=== PATIENT | male | born 1940 | race Caucasian/White ===

== ENCOUNTER → 2017-08-06 08:04 | Outpatient (CLI) | payer MEDICARE, SELFPAY ==
[2017-08-06 08:10] LABS: Bacteria 0 SEEN /hpf (None Seen); Mucous, Urine 0 SEEN /hpf (<or=2+); Red Blood Cells-Urine 0 SEEN /hpf (0-5); Squamous Epithelial Cells - UA 0 SEEN /hpf (0-5)
[2017-08-06 08:28] LABS: Color, Urine Yellow (Yellow); Glucose, Dipstick Normal (Normal); Ketone-Dipstick 5 mg/dl (Negative); Leukocyte Esterase-Dipstick 25 /ul (Negative); Nitrite-Dipstick Negative (Negative); Occult Blood-Urine Negative /ul (Negative); Protein-Dipstick Negative (Negative); Urine Clarity Clear (Clear); Urine Urobilinogen 4 mg/dl (Normal)
[2017-08-06 08:32] LABS: Urine Bilirubin Dipstick 1 mg/dL (Negative)
[2017-08-06 08:36] LABS: Calcium Oxalate Crystals Ur 2+ /hpf (<or=2+); White Blood Cells 0-5 SEEN /hpf (0-5)
== END ==
PROVIDERS: Family Provider Family Medicine; PCP Family Medicine; Visit Provider Nurse Practitioner Adult Health
DX: R30.0 Dysuria (principal)
CPT/HCPCS: 81001; 87086; 87088

== ENCOUNTER → 2017-12-01 08:29 | Outpatient (CLI) | payer MEDICARE, SELFPAY | PROVIDERS: Family Provider Family Medicine; PCP Family Medicine; Visit Provider Family Medicine | DX: R06.00 Dyspnea, unspecified (principal) | CPT/HCPCS: 71046 ==

== ENCOUNTER → 2018-01-14 10:44 | Outpatient (CLI) | payer MEDICARE, SELFPAY | PROVIDERS: Family Provider Family Medicine; PCP Family Medicine; Referring Provider Nurse Practitioner Adult Health; Visit Provider Nurse Practitioner Adult Health | DX: R30.0 Dysuria (principal) | CPT/HCPCS: 87077; 87086; 87088; 87186 ==

== ENCOUNTER → 2018-06-04 09:24 | Outpatient (CLI) | payer MEDICARE, SELFPAY ==
[2018-05-21 10:41] VITALS: BMI 19.5
--- NOTE | 2018-06-04 09:27 | RAD_ITS ---
STUDY: SWALLOWING STUDY REASON FOR EXAM: Male, 77 years old. Dysphagia. TECHNIQUE: The examination was performed with Speech Pathology in attendance. Under fluoroscopic observation, the patient ingested thin barium, thick barium, barium pudding, and barium coated cracker. FLUOROSCOPY TIME: 6:27 minutes/seconds. [id number] spot images were obtained. RADIOLOGIST INVOLVEMENT: Radiologist was present and providing direct supervision. COMPARISON: None. FINDINGS: The following was observed during swallowing of the various mixtures of barium: Difficulty with initiation of the swallowing mechanism. Thin Barium: Silent aspiration with ingestion of thin liquids. Thick Barium: Intermittent penetration and silent aspiration with ingestion of nectar thickened liquids. Barium Pudding: There was no evidence of aspiration or laryngeal penetration. Barium Coated Cracker: There was no evidence of aspiration or laryngeal penetration. RAD/Swallowing Function w/Video IMPRESSION: Poor oral phase. Seventh aspiration with ingestion of thin liquids. Intermittent silent aspiration with ingestion of nectar thickened liquids. The swallow study findings were discussed with the patient by the speech pathologist at the conclusion of the examination. Please see speech pathology report for more information and recommendations. Electronically Signed: Corby Figueroa MD at 12:36 EST , Service support ,
--- NOTE | 2018-06-04 09:30 | SP.MBSS_ITS ---
PRIMARY / SECONDARY DIAGNOSIS: Dysphagia/Parkinson?s Disease REFERRING PHYSICIAN: Dr. Klein CURRENT DIET: Soft textures/Chopped Meat/Thin Liquids DENTITION: Upper Denture Plate/Lower Implant MENTAL STATUS: Slow response time d/t PD RESPIRATORY STATUS: Oxygenating on room air PREVIOUS MODIFIED BARIUM SWALLOW STUDY: n/a REASON FOR REFERRAL: Further assessment of swallow function under fluoroscopy. reports coughing when taking medications w/ thin liquids, especially when in a reclined position. Intermittent shortness of breath. MEDICAL HISTORY: Parkinson?s Disease, Anemia, Benign prostate hyperplasia, Chronic back pain, Dehydration, Depression, Diverticulitis, Dyspnea, FTT, Hypercholesterolemia, Lower GI bleed, SOB, Spinal cord stimulator, Urinary incontinence STUDY FINDINGS: Patient participated in a Modified Barium Swallow (MBS) study on 06/03/2018. Dr. Figueroa was the radiologist present for this evaluation. This study was recorded in the lateral view and images were sent to PACs for storage. The following consistencies were presented to this patient for analysis of oropharyngeal swallow function: honey thickened liquids and pudding. Results of the MBS are as follows: PENETRATION / ASPIRATION SCALE (CAPELLAN): 1 = does not enter airway 2 = enters airway/above vocal folds/ejected 3 = enters airway/above vocal folds/not ejected 4 = enters airway/contacts vocal folds/ejected 5 = enters airway/contacts vocal folds/not ejected 6 = enters airway/below vocal folds/ejected 7 = enters airway/below vocal folds/not ejected despite effort 8 = enters airway/below vocal folds/no effort PENETRATION / ASPIRATION SCALE (SCORE): 1. Thin liquid via teaspoon: 1 2. Thin liquid via cup (administered by [employer]URNED [employer]PRAISER large volume): 8 3. Thin liquid via straw: 1 4. Thin liquid via straw: 1 5. Puddin 6. Cookie: 1 7. Thin liquid via straw: 6 8. Thin liquid via straw: 8 9. Lillie thickened liquid via straw: 8 10. Lillie thickened liquid via straw: 1 11. Lillie thickened liquid via straw, attempted chin tuck unsuccessfully: 1 12. Lillie thickened liquid via straw w/ chin tuck: 1 IMPRESSION ORAL PHASE CHARACTERIZED BY: LABIAL SEAL: interlabial escape, no progression to anterior lip TONGUE CONTROL DURING BOLUS MANIPULATION: posterior escape of greater than half of bolus BOLUS PREPARATION / MASTICATION: slow prolonged chewing/mashing with complete recollection BOLUS TRANSPORT / LINGUAL MOTION: repetitive/disorganized tongue motion ORAL RESIDUE: residue collection on oral structures PHARYNGEAL PHASE CHARACTERIZED BY: INITIATION OF PHARYNGEAL SWALLOW: bolus head in pyriforms at first hyoid excursion SOFT PALATE ELEVATION: no bolus between soft palate and pharyngeal wall LARYNGEAL ELEVATION: partial superior movement of thyroid cartilage/partial approximation of arytenoids cartilage to epiglottic petiole ANTERIOR HYOID EXCURSION: partial anterior movement EPIGLOTTIC MOVEMENT: complete epiglottic inversion LARYNGEAL VESTIBULE CLOSURE AT HEIGHT OF SWALLOW: incomplete laryngeal vestibule closure with narrow column of air/contrast in laryngeal vestibule PHARYNGEAL STRIPPING WAVE: pharyngeal stripping wave present / diminished PHARYNGOESOPHAGEAL SEGMENT OPENING: partial distension and partial duration; partial obstruction of flow TONGUE BASE RETRACTION: trace column of contrast between tongue base and posterior pharyngeal wall PHARYNGEAL RESIDUE: collection of residue within or on pharyngeal structures ESOPHAGEAL PHASE CHARACTERIZED BY: ESOPHAGEAL BOLUS CLEARANCE IN THE UPRIGHT POSITION: esophageal retention EFFECTS OF TREATMENT STRATEGIES ATTEMPTED: * Chin tuck posture = not effective * Cued expectoration = not effective to expel laryngotracheal aspirate * Double swallow = effective to reduce oral/pharyngeal residue * Reduced liquid bolus volume = effective * Use of straw = effective to improve intake of liquids d/t UE weakness INTERPRETATION OF RESULTS: Patient presents with moderate to severe oropharyngeal dysphagia (R13.12) secondary to Parkinson?s Disease. Oral phase is primarily marked by moderate mastication inefficiency characterized by prolonged duration and munching pattern. Suboptimal lingual control noted w/ lingual pumping pattern utilized to propel bolus posteriorly. Oral residue retention remained post deglutition d/t impaired lingual strength/ROM swallow onset delay. Pharyngeal phase of swallow is marked by delayed triggering of the pharyngeal phase of swallow liquids pooling to the valleculae and occasionally the pyriform sinuses prior to swallow onset w/ reduced laryngeal vestibule closure, resulting in laryngeal vestibule penetration and SILENT ASPIRATION of both thin and nectar thickened liquids before and during the swallow. Limiting liquid bolus volume was effective to reduce the degree of premature pharyngeal bolus entry/penetration, but was not consistent. Increased aspiration noted w/ large volume/sequential swallows d/t inability to maintain airway closure between each swallow w/ penetration before swallow onset and aspiration between/after deglutition. Poor pharyngeal motility w/ residue retention diffusely spread throughout the pharynx (base of tongue, valleculae, aryepiglottic folds, pyriforms and posterior pharyngeal wall) attributed to reduced tongue based retraction, reduced posterior pharyngeal stripping wave action and slightly reduced pharyngoesophageal segment opening. Noted that ALL ASPIRATION WAS SILENT the patient was able to achieve what appeared to be a strong cough when cued, but it was ineffective to expel laryngotracheal aspirate. RECOMMENDATIONS DIET: soft textures/chopped meats/thin liquids COMPENSATORY STRATEGIES: Reduced bolus volume, slow rate of intake, liquids via cup or straw, double swallow as needed to clear oral/pharyngeal residue, seated upright at 90 degrees during PO intake, all medications taken w/ purees, avoid mixed consistencies (solids with liquids cereal, soup, etc.), encourage oral care to reduce aspiration of oral bacteria SPECIAL CONSIDERATIONS: Extensive time was spent in reviewing images and providing education re: dysphagia/Parkinson?s Disease/aspiration. Due to the progressive nature of Parkinson?s Disease, the patient and his expressed a strong desire to seek quality of life measures, rather than to make adjustments such as thickening liquids and use of feeding tubes, in an attempt to reduce aspiration risk at the cost of significantly reducing this patient?s quality of life. The patient is a known silent aspirator. The compensatory strategies recommended will not prevent/eliminate aspiration, but will hopefully reduce the frequency/severity of aspiration and its subsequent complications. Given the patient?s wishes, thin liquids are recommended rather than nectar thickened liquids as the degree/amount of aspiration was worse with single sips of nectar than w/ single sips of thin liquid via straw under fluoroscopy. There is also a known higher risk of pulmonary complications associated w/ aspiration of thicker vs. thinner liquids. Education provided to the patient and was well received w/ all questions answered to their satisfaction. SKILLED DYSPHAGIA INTERVENTION: This patient would benefit from follow up w/ home health speech therapy services for 1-2 visits to re-educate on the above information and ensure comprehension/consistent compliance w/ the aspiration precautions recommended to reduce the frequency/severity of aspiration and its subsequent complications. IMAGE COUNT: [id number]
== END ==
PROVIDERS: Family Provider Family Medicine; PCP Family Medicine; Referring Provider Internal Medicine Critical Care Medicine; Visit Provider Internal Medicine Critical Care Medicine
DX: G20 Parkinson's disease (principal)
CPT/HCPCS: 74230; 92610; 92611

== ENCOUNTER 2018-09-12 17:51 | Inpatient (IN) | payer MEDICARE, SELFPAY ==
[2018-05-21 10:41] VITALS: BMI 19.5
[2018-09-12] VITALS (13 sets, daily range): BP systolic 139–174; BP diastolic 62–140; PULSE 58–76; RESP 13–26; TEMP 36.7–37; O2SAT 92–100; BMI 19.4; BMI 18.3
--- NOTE | 2018-09-12 17:59 | CT_ITS ---
STUDY: CT ABDOMEN AND PELVIS WITHOUT CONTRAST REASON FOR EXAM: Male, 77 years old. Fall, right hip and back pain RADIATION DOSAGE (If Supplied By Facility): CTDIvol = ( 7.70 ) mGy, DLP = ( 373.42 ) mGycm TECHNIQUE: Transaxial images were obtained from the dome of the diaphragm to the symphysis pubis without oral contrast, and without intravenous contrast. Sagittal and coronal images were reconstructed. Limited by motion artifact and patient positioning. Individualized dose optimization techniques were used for this CT. COMPARISON: 03/06/2017 FINDINGS: Large anterior right pneumothorax identified with compression/atelectasis of the right lower lobe. Mild atelectasis of the left lower lobe. The visualized portions of the heart are within normal limits. Normal liver. Normal gallbladder and extrahepatic biliary system. Normal spleen. Normal pancreas. Normal bilateral adrenal glands. Small calcifications of the bilateral kidneys similar since the prior study. No demonstrated hydronephrosis. No renal masses are seen. There is a small hiatal hernia. Normal small intestine. There are multiple colonic diverticula consistent with diverticulosis. There is diffuse fecal retention throughout the colon. There is non-visualization of the appendix. There is diffuse atherosclerotic calcification of the abdominal aorta, without a demonstrated aneurysm. Normal inferior vena cava. Normal retroperitoneum. Normal urinary bladder. Normal abdominal wall. Multilevel degenerative changes of the thoracolumbar spine with multilevel laminectomies in the lower lumbar levels. Compression deformity of T12 and L1 are similar since the prior study. Similar compression deformity of T9 and T10 with prior vertebral augmentation of T11. Right hip replacement causes moderate spray artifact. No obvious pelvic ring fracture. There is a neurostimulator device noted. Left hip is normally aligned. CT/Abdomen/Pelvis without Cont IMPRESSION: 1. Large right pneumothorax partially visualized. 2. No abdominal ascites or pneumoperitoneum. 3. Moderate fecal retention. 4. Similar degenerative and operative changes of the lumbar spine. Lower thoracic and upper lumbar vertebral body compression fractures are similar since 2017. 5. Atherosclerosis. 6. Nonobstructing renal calculi. Electronically Signed: Flavio Jacome MD at 19:23 EDT , Service support ,
[2018-09-12] MEDS: Ketorolac 15 MG/ML Vial IV (18:08)
--- NOTE | 2018-09-12 18:24 | CT_ITS ---
STUDY: CT BRAIN WITHOUT CONTRAST REASON FOR EXAM: Male, 77 years old. Fall, back pain, history of Parkinson's disease RADIATION DOSAGE (If Supplied By Facility): CTDIvol = ( 40.11 ) mGy, DLP = ( 1750.38 ) mGycm TECHNIQUE: Transaxial CT imaging of the brain was performed without administration of intravenous contrast material. Individualized dose optimization techniques were used for this CT. COMPARISON: 07/07/2015 FINDINGS: Normal soft tissue structures. Normal calvarium. There is mild cerebral atrophy with widening of the extra-axial spaces and ventricular dilatation. Normal variant cavum septi pellucidi et vergae. There are areas of decreased attenuation within the white matter tracts of the supratentorial brain, consistent with microvascular disease changes. Low-density lesion of the left basal ganglia likely represents a prominent perivascular space rather than lacunar infarction. Normal brainstem. Normal cerebellum. There is no intracranial hemorrhage. There are no findings of an acute ischemic infarction. Normal visualized paranasal sinuses. CT/Brain/Head without Contrast IMPRESSION: 1. No acute intracranial hemorrhage or mass effect. 2. Central parenchymal volume loss. White matter changes that are nonspecific but most commonly associated with chronic small vessel ischemic disease. Electronically Signed: Flavio Jacome MD at 19:18 EDT , Service support ,
[2018-09-12 18:29] LABS: ALB/GLOB Ratio 1.2 RATIO (0.9-2.4); AST(SGOT) 18 U/L (15-37); Alanine Aminotransfer ALT/SGPT 9 U/L (16-61); Albumin, Serum 3.8 g/dL (3.2-5.0); Alkaline Phosphatase 68 U/L (45-117); Anion Gap 8 (5-15); BUN 22 mg/dL (7-18); BUN/Creat Ratio 22.9 RATIO (10-20); Calcium,Total 8.4 mg/dL (8.5-10.1); Chloride 100 mmol/L (98-107); Creatinine, Serum 0.96 mg/dL (0.70-1.30); EST Glomerular Filtration Rate 80 mL/min (>60); Est Glom Filt Rate - Afr Amer 97 mL/min (>60); Estimated Creatinine Clearance 52.77 ml/min; Globulin 3.2 g/dL (2.2-4.2); Glucose 98 mg/dL (74-106); Potassium 3.8 mmol/L (3.5-5.1); Sodium Level 138 mmol/L (136-145)
[2018-09-12 18:36] LABS: Absolute Lymphocyte Count 1.56 X10^3/ul (0.83-4.51); Absolute Neutrophil Count 8.7 X10^3/uL (2.0-7.7); Basophil# 0.02 X10^3/uL; Basophil% 0.2 % (0-1); Eosinophil# 0.17 X10^3/uL; Eosinophils% 1.5 % (0-5); Hematocrit 38.9 % (40-54); Hemoglobin 13.4 g/dl (13.0-16.5); Lymphocyte # 1.56 X10^3/ul (4.0); Lymphocyte % 13.7 % (19-41); Mean Corp Hgb Conc 34.4 g/gl (32-36); Mean Corpuscular Hgb 30.8 pg (27.0-32.0); Mean Corpuscular Volume 89.4 fL (80-94); Monocyte# 0.94 X10^3/uL; Monocyte% 8.2 % (0-10); Neutrophil # 8.71 X10^3/uL (2.7-7.7); Neutrophil % 76.2 % (47-70); Platelet Count 233 K/mm3 (150-450); RBC Distribution Width CV 13.2 % (11.6-14.6); RBC Distribution Width SD 42.7 fl (35.1-43.9); Red Blood Count 4.35 M/mm3 (4.6-6.2); White Blood Count 11.4 K/mm3 (4.4-11.0)
[2018-09-12 18:37] LABS: POSITIVE COUNT NO; POSITIVE DIFFERENTIAL NO; POSITIVE MORPHOLOGY NO
[2018-09-12 18:40] LABS: Bacteria 0 SEEN /hpf (None Seen)
--- NOTE | 2018-09-12 19:00 | RAD_ITS ---
STUDY: X-RAY CHEST REASON FOR EXAM: Male, 77 years old. Shortness of breath. Patient unable to hold still. TECHNIQUE: Single frontal view of the chest. COMPARISON: December 01, 2017 FINDINGS: There is stable hyperexpansion. There is no demonstrated pleural abnormality. There is moderate cardiomegaly unchanged. Normal mediastinum and ashanti. Normal visualized pulmonary arteries. There is atherosclerotic calcification of the aortic arch with tortuosity. There are vertebroplasty changes unaltered. Normal visualized ribs, clavicles, and shoulders. Incidentally noted is an epidural catheter and a stable hiatal hernia. RAD/Chest 1 View (Portable) IMPRESSION: Stable cardiomegaly, hyperexpansion and hiatal hernia. No acute finding. Electronically Signed: Gaudencio Hearn MD at 19:21 EDT , Service support ,
[2018-09-12 19:19] LABS: Color, Urine Yellow (Yellow); Glucose, Dipstick Normal (Normal); Ketone-Dipstick 5 mg/dl (Negative); Leukocyte Esterase-Dipstick 100 /ul (Negative); Nitrite-Dipstick Negative (Negative); Occult Blood-Urine 150 /ul (Negative); Protein-Dipstick 30 mg/dl (Negative); Urine Bilirubin Dipstick Negative (Negative); Urine Clarity Clear (Clear); Urine Urobilinogen Normal (Normal)
[2018-09-12 19:23] LABS: Red Blood Cells-Urine 10-25 SEEN /hpf (0-5); Squamous Epithelial Cells - UA 5-10 SEEN /hpf (0-5); White Blood Cells 10-25 SEEN /hpf (0-5)
[2018-09-12 19:24] LABS: Mucous, Urine RARE /hpf (<or=2+)
[2018-09-12 19:25] LABS: Amorphous Sediment 1+ URATE
[2018-09-12] MEDS: Propofol 200 MG/20 ML Vial 30 MG IV BOLUS (19:30)
--- NOTE | 2018-09-12 19:40 | RAD_ITS ---
STUDY: X-RAY CHEST REASON FOR EXAM: Male, 77 years old. Chest tube placement on the right for pneumothorax. TECHNIQUE: Single frontal view of the chest. COMPARISON: Earlier in the day FINDINGS: Right thoracostomy tube has been placed. There is a small apical pneumothorax 2.2 cm of separation of visceral and parietal pleura. There is increased atelectasis at both bases. There is no demonstrated pleural abnormality. There is stable cardiomegaly. Normal mediastinum and ashanti. Normal visualized pulmonary arteries. There is atherosclerotic calcification of the aortic arch with tortuosity. Normal visualized thoracic spine. Normal visualized ribs, clavicles, and shoulders. There is no demonstrated abnormality of the visualized soft tissue structures of the upper abdomen. RAD/Chest 1 View (Portable) IMPRESSION: Placement of right thoracostomy tube with decrease in right pneumothorax. Electronically Signed: Gaudencio Hearn MD at 19:54 EDT , Service support ,
--- NOTE | 2018-09-12 19:55 | HP.PCM_ITS ---
Problem List (1) Pneumothorax Status: Acute (2) Cystitis Status: Acute (3) Fall Status: Acute (4) Parkinson disease Status: Chronic (5) Benign prostate hyperplasia Status: Chronic Qualifiers: Lower urinary tract symptom presence: presence of symptoms unspecified History of Present Illness Date of Admission: 09/12/18 Chief Complaint: Fall The patient is a 77 year old M with a significant history of Parkinson's disease who presented because of a fall. History was taken from patient's since patient is less talkative. Her report that patient typically walks with a walker. However a day before presentation he fell while not using his walker. Also on the day of presentation patient's was having generalized body spasms and he fell out of bed. Reportedly patient was holding his chest indicating that he was having chest pain. Also his reported that patient has been having frequent urination and recently his started putting a condom catheter on patient. However his report that in the last 3 days she stopped putting the condom catheter. At the emergency department patient was found to have increased leukocyte esterase. Chest x-ray showed right pneumothorax and chest tube was placed at the emergency department. Emergency department doctor discussed the case with Dr. Gurrola, General Surgery who intends to follow patient. Past Medical History Past Medical History (Chronic Problems): Chronic Problems (Last Reviewed 09/12/18 @ 20:32 by Jluis Cason MD) SOB (shortness of breath) (Chronic) Benign prostate hyperplasia (Chronic) Parkinson disease (Chronic) Chronic back pain (Chronic) Urinary incontinence (Chronic) Depression (Chronic) Medical History: Medical History (Last Reviewed 09/12/18 @ 20:40 by Jluis Cason MD) SOB (shortness of breath) (Chronic) R06.02 Anemia due to blood loss, acute (Acute) D62 Dehydration (Acute) E86.0 Benign prostate hyperplasia (Chronic) Parkinson disease (Chronic) G20 Chronic back pain (Chronic) M54.9, G89.29 Urinary incontinence (Chronic) R32 Depression (Chronic) F32.9 FTT (failure to thrive) in adult (Acute) Lower GI bleed (Acute) K92.2 Diverticulitis large intestine (Acute) K57.32 Dyspnea R06.00 Hypercholesterolemia E78.00 Impacted cerumen of right ear H61.21 Spinal cord stimulator status Z96.89 Allergies albuterol [From Proventil HFA] Adverse Reaction (Mild, Verified 05/21/18 10:42) jittery meperidine [From Demerol] Adverse Reaction (Mild, Verified 05/21/18 10:42) Vomiting morphine Adverse Reaction (Verified 05/21/18 10:42) Other Narcotics Allergy (Uncoded 05/21/18 10:42) Other Halluciantes Home Medications: Ambulatory Orders Medication Instructions Recorded Pantoprazole Sodium [Protonix] 40 mg PO DAILY 07/11/13 Rasagiline Mesylate [Azilect] 1 mg PO DAILY 07/11/13 Tamsulosin HCl [Flomax] 0.4 mg PO DAILY 07/11/13 Venlafaxine XR [Effexor Xr] 75 mg PO DAILY 07/11/13 carbidopa 25 mg-levodopa 100 mg 1 tab PO TID tab 05/15/18 tablet ibuprofen 800 mg tablet 800 mg PO TID 05/15/18 Glycopyrrolate [Robinul] 1 mg PO TID 09/12/18 Multivitamin with Minerals 1 each PO DAILY 09/12/18 [Multiple Vitamin] Rivastigmine Tartrate 6 mg PO BID 09/12/18 [Rivastigmine] Ropinirole HCl [Requip] 1 mg PO TID 09/12/18 Surgical History: Surgical History (Last Reviewed 09/12/18 @ 20:40 by Jluis Cason MD) Cataract extraction status of left eye Z98.42 H/O elbow surgery Z98.890 Right H/O shoulder surgery Z98.890 1990 History of back surgery Z98.890 04/2009 History of hip surgery Z98.890 due to right sided fracture, 12/2009 Surgical History: - - Back surgery, elbow replacement bilaterally and rotator cuff repair. He has also had an ORIF of a hip fracture. He also has an electric stimulator in his back and he has had battery changes. Psychiatric History: Depression Lives: Spouse/ Significant Other Smoking Status: Former smoker - *Family History Maternal Family History: Family History (Last Reviewed 09/12/18 @ 20:40 by Jluis Cason MD) Mother Bacterial pneumonia Father Lung cancer History Items: No pertinent history Paternal Family History: Family History (Last Reviewed 09/12/18 @ 20:40 by Jluis Cason MD) Mother Bacterial pneumonia Father Lung cancer Review of Systems Constitutional: Denies: Chills, Fever, Weight Change HEENT: Denies: Head Aches, Sinus Congestion, Sinus Drainage Cardiovascular: Reports: Chest Pain. Denies: Palpitations Respiratory: Denies: Cough, Shortness of breath at rest, Sputum production Gastrointestinal: Denies: Abdominal Pain, Nausea, Vomiting Genitourinary: Denies: Dysuria Musculoskeletal: Denies: Joint Pain, Joint Tenderness Skin: Denies: Rash, Wounds Neurological: Denies: Numbness, Tingling, Focal weakness Psychiatric: Denies: Anxiety, Depression, Homicidal Ideations, Suicidal Idea tions Hematologic/ Lymphatic: Denies: Easy Bruising, Easy Bleeding VTE Information - Inpt Only VTE Present on Admission: No VTE Mechan Device Prophylaxis: None VTE Pharm Prophylaxis ordered?: Yes Patient Problems: Active and Suspected Problems (Last Reviewed 09/12/18 @ 20:32 by Jluis Cason MD) Pneumothorax (Acute) Cystitis (Acute) Fall (Acute) - Physical Exam General: Alert, Oriented x3, Cooperative, - HEENT: Atraumatic, PERRLA, EOMI, Normocephalic Neck: Supple, No JVD, Negative Carotid Bruits Lungs: Normal air movement, Diminished, - - Dressing on right side of chest with chest tube emanating from the right side chest. Cardiovascular: Regular rate, No murmurs Abdomen: Bowel Sounds Present, Soft, Non Tender Extremities: No edema, Capillary Refill Less than 3 Seconds Skin: No rashes, No breakdown Musculoskeletal: No Tenderness to Palpation of Joints or Extremities, Cachexia Neurological: Neuro grossly intact - Difficult to understand speech. Psych/Mental Status: Normal Affect, Appropriate Vital Signs Temp Pulse Resp BP Pulse Ox 98.6 F 71 18 166/91 H 100 09/12/18 17:52 09/12/18 19:52 09/12/18 19:52 09/12/18 19:52 09/12/18 19:52 Oxygen Flow Rate (L/min) [3] 15 Oxygen Flow Rate (L/min) [2] 15 Oxygen Flow Rate (L/min) [1 ( 15 Initial Baseline)] Oxygen Flow Rate (L/min) 15 Oxygen Delivery Method [3] Non-Rebreather Oxygen Delivery Method [2] Non-Rebreather Oxygen Delivery Method [1 ( Non-Rebreather Initial Baseline)] Oxygen Delivery Method Room Air Weight: 57.9 kg Body Mass Index (BMI) 19.4 Finger Stick Blood Glucose 81 Laboratory Tests Past 24 Hrs 09/12/18 09/12/18 09/12/18 18:05 18:05 18:30 WBC 11.4 H RBC 4.35 L Hgb 13.4 Hct 38.9 L MCV 89.4 MCH 30.8 MCHC 34.4 RDW 13.2 RDW Differential 42.7 Plt Count 233 MPV 9.0 Immature Gran % (Auto) 0.200 Neut % (Auto) 76.2 H Lymph % (Auto) 13.7 L [place] % (Auto) 8.2 Eos % (Auto) 1.5 Baso % (Auto) 0.2 Absolute Neuts (auto) 8.7 H Absolute Lymphs (auto) 1.56 Total Counted Not Reportable Sodium 138 Potassium 3.8 Chloride 100 Carbon Dioxide 30.0 Anion Gap 8 BUN 22 H Creatinine 0.96 Estim Creat Clear Calc 52.77 Est GFR (MDRD) Af Amer 97 Est GFR (MDRD) Non-Af 80 BUN/Creatinine Ratio 22.9 H Glucose 98 Calcium 8.4 L Total Bilirubin 0.80 AST 18 ALT 9 L Alkaline Phosphatase 68 Total Protein 7.0 Albumin 3.8 Globulin 3.2 Albumin/Globulin Ratio 1.2 Urine Color Yellow Urine Clarity Clear Urine pH 6.0 Ur Specific [place] 1.020 Urine Protein 30 H Urine Glucose (UA) Normal Urine Ketones 5 H Urine Occult Blood 150 H Urine Nitrite Negative Urine Bilirubin Negative Urine Urobilinogen Normal Ur Leukocyte Esterase 100 H Urine RBC 10-25 SEEN Urine WBC 10-25 SEEN Ur Squamous Epith Cells 5-10 SEEN Amorphous Sediment 1+ URATE Urine Bacteria 0 SEEN Urine Mucus RARE Assessment/Plan All Active Problems (Last Reviewed 09/12/18 @ 20:32 by Jluis Cason MD) Pneumothorax (Acute) Cystitis (Acute) Fall (Acute) Anemia due to blood loss, acute (Acute) Dehydration (Acute) FTT (failure to thrive) in adult (Acute) Lower GI bleed (Acute) Diverticulitis large intestine (Acute) The patient is a 77 year old M with a significant history of Parkinson's disease who presented because of a fall; and also complained of increased urination and found to have abnormal urinalysis and right-sided pneumothorax for which reason chest tube was placed. Right-sided pneumothorax Independent review of initial CXR confirms pneumothorax. Status post placement of right thoracostomy tube with decreasing right pneumothorax. Repeat chest x-ray in a.m. Oxygen per nasal cannula. General surgery consult. Pain control detailed below. Acute cystitis Review of ED labs shows neutrophilic leukocytosis Abnormal urinalysis. Follow urine culture Received ceftriaxone emergency department. Ceftriaxone continued. Trend CBC and BMP. Fall Likely due to Parkinson's disease. PT and OT to work with patient for strengthening and balance training. Home ibuprofen for chronic back pain continued. Protonix continued Add schedule Tylenol and PRN oxycodone. Parkinson disease Carbidopa levodopa continued Rasagiline continued Rivastigmine continued Requip continued Glycopyrrolate continued Protein Calorie Malnutrition BMI 19.4 Patient looks cachetic Ensure Enlive ordered Nutrition consult BPH Flomax continued DVT prophylaxis Subcutaneous Lovenox Code Visit Inpatient E&M: 06025 Init Hosp L3
[2018-09-12] MEDS: Ceftriaxone 1 GM/50 ML BAG IV (20:00)
--- NOTE | 2018-09-12 20:21 | ED.VISSUMM ---
- ER Visit Summary Date of Service: 09/12/18 Chief Complaint: [Fall, back pain History of Present Illness: The patient is a 77 M with history of advanced Parkinson's disease presents to the emergency department 1 day after a fall. Patient was alone in his home. His states that she was out running errands and her shredding machine knife changer was not home from work yet. He was found about 20 feet from his bed without his walker. He apparently fallen. He did not lose consciousness. He actually did well overnight. This morning, he was walking with his walker and eat breakfast without issue. As the day went on, he began to complain of a lot of pain in his right ribs and some shortness of breath. Squad was called. On arrival, the patient does not give much history because of his advanced Parkinson's. Physical Examination: Afebrile. Uncomfortable male was in no acute distress. Patient was all extremities. His neuro exam is nonfocal. Head is normocephalic, atraumatic. Pupils equal round reactive. Neck is supple. Heart is regular rate and rhythm. Lungs are diminished on the right. There is tenderness across the right chest. Abdomen is soft without tenderness. No pain over the hips. No pain in the knees or ankles. Test Results: [] Emergency Department Course and Treatment: Based on the patient's exam, metabolic work-up was pursued. The is also concerned he may have a urinary tract infection as they been using condom catheters and he is been having increasing urinary frequency. Patient was straight cath and there is no evidence of retention. His urine does show evidence of infection. CT of the head was obtained which was unremarkable. Chest x-ray does show pneumothorax. CT of abdomen and pelvis shows no intra-abdominal injury, but there is pneumothorax visible. The patient has significant trouble with narcotics. He was consented for conscious sedation. A Pneumovax catheter was placed without issue. Repeat x-rays do show it in good position with expansion of the long. I did discuss the patient with Dr. Galvanbody he was comfortable following the patient was hospitalized. The patient will be admitted to the hospitalist. Treatment Plan: [] Disposition: Admission Impression: 1. Right pneumothorax 2. Urinary tract infection 3. Right chest Pneumovax catheter placement 4. Conscious sedation This note was generated with [employer] software. It may contain incorrect words, spelling, and punctuation that were not noted in review of the chart prior to signing
--- NOTE | 2018-09-12 20:25 | ED.DCSUM_ITS ---
- ER Visit Summary Date of Service: 09/12/18 Chief Complaint: [Fall, back pain History of Present Illness: The patient is a 77 M with history of advanced Parkinson's disease presents to the emergency department 1 day after a fall. Patient was alone in his home. His states that she was out running errands and her lube attendant was not home from work yet. He was found about 20 feet from his bed without his walker. He apparently fallen. He did not lose consciousness. He actually did well overnight. This morning, he was walking with his walker and eat breakfast without issue. As the day went on, he began to complain of a lot of pain in his right ribs and some shortness of breath. Squad was called. On arrival, the patient does not give much history because of his advanced Parkinson's. Physical Examination: Afebrile. Uncomfortable male was in no acute distress. Patient was all extremities. His neuro exam is nonfocal. Head is normocephalic, atraumatic. Pupils equal round reactive. Neck is supple. Heart is regular rate and rhythm. Lungs are diminished on the right. There is tenderness across the right chest. Abdomen is soft without tenderness. No pain over the hips. No pain in the knees or ankles. Test Results: [] Emergency Department Course and Treatment: Based on the patient's exam, metabolic work-up was pursued. The is also concerned he may have a urinary tract infection as they been using condom catheters and he is been having increasing urinary frequency. Patient was straight cath and there is no evidence of retention. His urine does show evidence of infection. CT of the head was obtained which was unremarkable. Chest x-ray does show pneumothorax. CT of abdomen and pelvis shows no intra-abdominal injury, but there is pneumothorax visible. The patient has significant trouble with narcotics. He was consented for conscious sedation. A Pneumovax catheter was placed without issue. Repeat x-rays do show it in good position with expansion of the long. I did discuss the patient with Dr. Galvanbody he was comfortable following the patient was hospitalized. The patient will be admitted to the hospitalist. Treatment Plan: [] Disposition: Admission Impression: 1. Right pneumothorax 2. Urinary tract infection 3. Right chest Pneumovax catheter placement 4. Conscious sedation This note was generated with [employer] software. It may contain incorrect words, spelling, and punctuation that were not noted in review of the chart prior to signing
[2018-09-12] MEDS: Ibuprofen 400 MG Tablet 800 MG PO (21:45)
[2018-09-12] MEDS: Acetaminophen 500 MG Tablet PO (23:20)
[2018-09-13 03:00] VITALS: BP 134/98; PULSE 63; RESP 17; TEMP 36.5; O2SAT 97
[2018-09-13 03:18] VITALS: O2SAT 97
--- NOTE | 2018-09-13 05:50 | RAD_ITS ---
STUDY: X-RAY CHEST REASON FOR EXAM: Male, 77 years old. Follow-up right-sided pneumothorax TECHNIQUE: Portable chest COMPARISON: 09/12/2018 FINDINGS: There is a small less than 1 cm residual right-sided pneumothorax which is smaller in size when compared to prior exam. The right-sided chest tube is unchanged.. There are stimulator wires are again noted overlying the mid thoracic spine. . There is no demonstrated pleural abnormality. Normal size heart. Normal mediastinum and ashanti. Normal visualized pulmonary arteries. Normal visualized aortic arch and descending thoracic aorta. There is improving bibasilar subsegmental atelectasis The prior compression fractures of the thoracic spine with prior kyphoplasty is again noted and unchanged There is no demonstrated abnormality of the visualized soft tissue structures of the upper abdomen. RAD/Chest 1 View (Portable) IMPRESSION: small less than 1 cm residual right-sided pneumothorax which is smaller in size when compared to prior exam Stable right-sided chest tube Stimulator wires overlying the mid thoracic spine Prior compression fractures thoracic spine with prior kyphoplasty in thoracic dextroscoliosis unchanged Improved aeration with improving bibasilar subsegmental atelectasis Electronically Signed: Juan Pablo Mendoza, at 7:25 EDT Tel , Service support ,
[2018-09-13] MEDS: Acetaminophen 500 MG Tablet PO ×3 (06:09→23:55)
[2018-09-13 07:45] LABS: Absolute Lymphocyte Count 1.86 X10^3/ul (0.83-4.51); Absolute Neutrophil Count 4.9 X10^3/uL (2.0-7.7); Basophil# 0.04 X10^3/uL; Basophil% 0.5 % (0-1); Eosinophil# 0.33 X10^3/uL; Eosinophils% 4.2 % (0-5); Hematocrit 35.3 % (40-54); Hemoglobin 12.1 g/dl (13.0-16.5); Lymphocyte # 1.86 X10^3/ul (4.0); Lymphocyte % 23.8 % (19-41); Mean Corp Hgb Conc 34.3 g/gl (32-36); Mean Corpuscular Hgb 30.6 pg (27.0-32.0); Mean Corpuscular Volume 89.1 fL (80-94); Mean Platelet Vol. 9.1 fl (6.2-12.0); Monocyte# 0.63 X10^3/uL; Monocyte% 8.1 % (0-10); Neutrophil # 4.92 X10^3/uL (2.7-7.7); Neutrophil % 63.1 % (47-70); Platelet Count 213 K/mm3 (150-450); RBC Distribution Width SD 41.8 fl (35.1-43.9); Red Blood Count 3.96 M/mm3 (4.6-6.2); White Blood Count 7.8 K/mm3 (4.4-11.0)
[2018-09-13 07:49] LABS: POSITIVE COUNT NO; POSITIVE DIFFERENTIAL NO; POSITIVE MORPHOLOGY NO
[2018-09-13 07:52] LABS: Anion Gap 9 (5-15); BUN 23 mg/dL (7-18); BUN/Creat Ratio 28.8 RATIO (10-20); Chloride 105 mmol/L (98-107); EST Glomerular Filtration Rate 99 mL/min (>60); Est Glom Filt Rate - Afr Amer 120 mL/min (>60); Estimated Creatinine Clearance 59.72 ml/min; Glucose 79 mg/dL (74-106); Potassium 3.6 mmol/L (3.5-5.1); Sodium Level 142 mmol/L (136-145)
[2018-09-13 08:22] VITALS: O2SAT 96
[2018-09-13] MEDS: Venlafaxine XR 75 MG Capsule PO (08:45)
[2018-09-13] MEDS: Carbidopa/Levodopa 25/100 Tablet PO ×2 (08:46→15:59)
[2018-09-13] MEDS: Multivitamins,Therapeutic Tablet 1 TABLET PO (08:46)
[2018-09-13] MEDS: Pramipexole Di-HCl 0.5 MG Tablet PO ×2 (08:46→15:59)
[2018-09-13] MEDS: Enoxaparin 40 MG/0.4 ML Syringe SC (08:46)
[2018-09-13] MEDS: Glycopyrrolate 1 MG TABLET PO ×2 (08:46→15:59)
[2018-09-13] MEDS: Rivastigmine Tartrate 1.5 MG Capsule 3 MG PO ×2 (08:51→16:00)
[2018-09-13 09:00] VITALS: BP 130/75; PULSE 68; RESP 15; TEMP 36.2; O2SAT 94
--- NOTE | 2018-09-13 11:18 | PCM.CONS.GEN ---
Problem List (1) Pneumothorax Status: Acute Qualifiers: Pneumothorax type: spontaneous, primary Qualified Code(s): J93.11 - Primary spontaneous pneumothorax Reason for Consult Date of Consultation: 09/13/18 History of Present Illness: The patient is a 77 year old M with history of advanced Parkinson's disease presents to the emergency department 1 day after a fall. Patient was alone in his home. His states that she was out running errands and her general car yard supervisor was not home from work yet. He was found about 20 feet from his bed without his walker. He apparently fallen. He did not lose consciousness. He actually did well overnight. This morning, he was walking with his walker and eat breakfast without issue. As the day went on, he began to complain of a lot of pain in his right ribs and some shortness of breath. Squad was called. On arrival, the patient does not give much history because of his advanced Parkinson's. Pleurx chest tube was placed by the emergency room physician. Reviewing of the film today shows the lung to be completely expanded. Past Medical History Past Medical History (Chronic Problems): Chronic Problems (Last Reviewed 09/12/18 @ 20:40 by Jluis Cason MD) SOB (shortness of breath) (Chronic) Benign prostate hyperplasia (Chronic) Parkinson disease (Chronic) Chronic back pain (Chronic) Urinary incontinence (Chronic) Depression (Chronic) Medical History: Medical History (Last Reviewed 09/13/18 @ 11:19 by Sharif Gurrola MD) SOB (shortness of breath) (Chronic) R06.02 Anemia due to blood loss, acute (Acute) D62 Dehydration (Acute) E86.0 Benign prostate hyperplasia (Chronic) Parkinson disease (Chronic) G20 Chronic back pain (Chronic) M54.9, G89.29 Urinary incontinence (Chronic) R32 Depression (Chronic) F32.9 FTT (failure to thrive) in adult (Acute) Lower GI bleed (Acute) K92.2 Diverticulitis large intestine (Acute) K57.32 Dyspnea R06.00 Hypercholesterolemia E78.00 Impacted cerumen of right ear H61.21 Spinal cord stimulator status Z96.89 Allergies albuterol [From Proventil HFA] Adverse Reaction (Mild, Verified 05/21/18 10:42) jittery meperidine [From Demerol] Adverse Reaction (Mild, Verified 05/21/18 10:42) Vomiting morphine Adverse Reaction (Verified 05/21/18 10:42) Other Narcotics Allergy (Uncoded 05/21/18 10:42) Other Halluciantes Home Medications: Ambulatory Orders Medication Instructions Recorded Pantoprazole Sodium [Protonix] 40 mg PO 0600 07/11/13 Rasagiline Mesylate [Azilect] 1 mg PO DAILY 07/11/13 Venlafaxine XR [Effexor Xr] 75 mg PO DAILY 07/11/13 carbidopa 25 mg-levodopa 100 mg 1 tab PO TIDCM tab 05/15/18 tablet ibuprofen 800 mg tablet 800 mg PO TID PRN PRN 05/15/18 Glycopyrrolate [Robinul] 1 mg PO TIDCM 09/12/18 Multivitamin with Minerals 1 each PO DAILY 09/12/18 [Multiple Vitamin] Rivastigmine Tartrate 6 mg PO BIDCM 09/12/18 [Rivastigmine] Ropinirole HCl [Requip] 1 mg PO TIDCM 09/12/18 Surgical History: Surgical History (Last Reviewed 09/13/18 @ 11:19 by Sharif Gurrola MD) Cataract extraction status of left eye Z98.42 H/O elbow surgery Z98.890 Right H/O shoulder surgery Z98.890 1990 History of back surgery Z98.890 04/2009 History of hip surgery Z98.890 due to right sided fracture, 12/2009 Surgical History: - - Back surgery, elbow replacement bilaterally and rotator cuff repair. He has also had an ORIF of a hip fracture. He also has an electric stimulator in his back and he has had battery changes. Psychiatric History: Depression Lives: Spouse/ Significant Other Smoking Status: Never smoker - *Family History Maternal Family History: Family History (Last Reviewed 09/12/18 @ 20:40 by Jluis Cason MD) Mother Bacterial pneumonia Father Lung cancer History Items: No pertinent history Paternal Family History: Family History (Last Reviewed 09/12/18 @ 20:40 by Jluis Cason MD) Mother Bacterial pneumonia Father Lung cancer History Items: No pertinent history Patient Problems: Active and Suspected Problems (Last Reviewed 09/12/18 @ 20:40 by Jluis Cason MD) Pneumothorax (Acute) Cystitis (Acute) Fall (Acute) - Physical Exam Lungs: Clear to auscultation, Diminished - No air leak is identified. Vital Signs Temp Pulse Resp BP Pulse Ox 97.1 F L 68 15 130/75 H 94 09/13/18 09:00 09/13/18 09:00 09/13/18 09:00 09/13/18 09:00 09/13/18 09:00 Oxygen Flow Rate (L/min) [3] 15 Oxygen Flow Rate (L/min) [2] 15 Oxygen Flow Rate (L/min) [1 ( 15 Initial Baseline)] Oxygen Flow Rate (L/min) 15 Oxygen Delivery Method [3] Non-Rebreather Oxygen Delivery Method [2] Non-Rebreather Oxygen Delivery Method [1 ( Non-Rebreather Initial Baseline)] Oxygen Delivery Method Room Air Weight: 120 lb 5.958 oz Body Mass Index (BMI) 18.3 Finger Stick Blood Glucose 81 Intake and Output for Last 24 Hours 09/11/18 09/12/18 09/13/18 23:59 23:59 23:59 Intake Total 200 / 200 Output Total 5 / 5 Balance 195 / 195 Microbiology Past 72 Hours 09/12/18 18:30 Urine Culture - Preliminary Urine, Catheterized Gram Positive Cocci Laboratory Tests Past 24 Hrs 09/12/18 09/12/18 09/12/18 18:05 18:05 18:30 WBC 11.4 H RBC 4.35 L Hgb 13.4 Hct 38.9 L MCV 89.4 MCH 30.8 MCHC 34.4 RDW 13.2 RDW Differential 42.7 Plt Count 233 MPV 9.0 Immature Gran % (Auto) 0.200 Neut % (Auto) 76.2 H Lymph % (Auto) 13.7 L Isabella % (Auto) 8.2 Eos % (Auto) 1.5 Baso % (Auto) 0.2 Absolute Neuts (auto) 8.7 H Absolute Lymphs (auto) 1.56 Total Counted Not Reportable Sodium 138 Potassium 3.8 Chloride 100 Carbon Dioxide 30.0 Anion Gap 8 BUN 22 H Creatinine 0.96 Estim Creat Clear Calc 52.77 Est GFR (MDRD) Af Amer 97 Est GFR (MDRD) Non-Af 80 BUN/Creatinine Ratio 22.9 H Glucose 98 Calcium 8.4 L Total Bilirubin 0.80 AST 18 ALT 9 L Alkaline Phosphatase 68 Total Protein 7.0 Albumin 3.8 Globulin 3.2 Albumin/Globulin Ratio 1.2 Urine Color Yellow Urine Clarity Clear Urine pH 6.0 Ur Specific [place] 1.020 Urine Protein 30 H Urine Glucose (UA) Normal Urine Ketones 5 H Urine Occult Blood 150 H Urine Nitrite Negative Urine Bilirubin Negative Urine Urobilinogen Normal Ur Leukocyte Esterase 100 H Urine RBC 10-25 SEEN Urine WBC 10-25 SEEN Ur Squamous Epith Cells 5-10 SEEN Amorphous Sediment 1+ URATE Urine Bacteria 0 SEEN Urine Mucus RARE 09/13/18 09/13/18 06:38 06:38 WBC 7.8 RBC 3.96 L Hgb 12.1 L Hct 35.3 L MCV 89.1 MCH 30.6 MCHC 34.3 RDW 13.0 RDW Differential 41.8 Plt Count 213 MPV 9.1 Immature Gran % (Auto) 0.300 Neut % (Auto) 63.1 Lymph % (Auto) 23.8 Isabella % (Auto) 8.1 Eos % (Auto) 4.2 Baso % (Auto) 0.5 Absolute Neuts (auto) 4.9 Absolute Lymphs (auto) 1.86 Total Counted Not Reportable Sodium 142 Potassium 3.6 Chloride 105 Carbon Dioxide 28.0 Anion Gap 9 BUN 23 H Creatinine 0.80 Estim Creat Clear Calc 59.72 Est GFR (MDRD) Af Amer 120 Est GFR (MDRD) Non-Af 99 BUN/Creatinine Ratio 28.8 H Glucose 79 Calcium 8.0 L Total Bilirubin AST ALT Alkaline Phosphatase Total Protein Albumin Globulin Albumin/Globulin Ratio Urine Color Urine Clarity Urine pH Ur Specific [place] Urine Protein Urine Glucose (UA) Urine Ketones Urine Occult Blood Urine Nitrite Urine Bilirubin Urine Urobilinogen Ur Leukocyte Esterase Urine RBC Urine WBC Ur Squamous Epith Cells Amorphous Sediment Urine Bacteria Urine Mucus Assessment/Plan All Active Problems (Last Reviewed 09/12/18 @ 20:40 by Jluis Cason MD) Pneumothorax (Acute) Cystitis (Acute) Fall (Acute) Anemia due to blood loss, acute (Acute) Dehydration (Acute) FTT (failure to thrive) in adult (Acute) Lower GI bleed (Acute) Diverticulitis large intestine (Acute) We will leave the chest tube to suction today. We will give a trial of removing the suction tomorrow morning and repeat a chest x-ray around noon.
--- NOTE | 2018-09-13 13:12 | PCM.PN.HOSP ---
Patient Problems: Active and Suspected Problems (Last Reviewed 09/13/18 @ 11:19 by Sharif Gurrola MD) Pneumothorax (Acute) Cystitis (Acute) Fall (Acute) Subjective: Patient has end-stage Parkinson disease and has severe kyphosis and cervical torticollis with her neck bent on left side. Patient is crawling position and sleeping. Talked to the patient and other family members near the bedside. Patient did not sleep last night. After waking up, he complained of mild pain. Patient had mechanical fall on 09/11 and 09/12 before admission. Patient has very limited ADL and restricted movement secondary to Parkinson's disease Vitals/I&O's: Vital Signs Temp Pulse Resp BP Pulse Ox 97.1 F L 68 15 130/75 H 94 09/13/18 09:00 09/13/18 09:00 09/13/18 09:00 09/13/18 09:00 09/13/18 09:00 Oxygen Flow Rate (L/min) [3] 15 Oxygen Flow Rate (L/min) [2] 15 Oxygen Flow Rate (L/min) [1 ( 15 Initial Baseline)] Oxygen Flow Rate (L/min) 15 Oxygen Delivery Method [3] Non-Rebreather Oxygen Delivery Method [2] Non-Rebreather Oxygen Delivery Method [1 ( Non-Rebreather Initial Baseline)] Oxygen Delivery Method Room Air Weight: 120 lb 5.958 oz Body Mass Index (BMI) 18.3 Finger Stick Blood Glucose 81 Intake and Output for Last 24 Hours 09/11/18 09/12/18 09/13/18 23:59 23:59 23:59 Intake Total 200 / 200 Output Total 5 / 5 Balance 195 / 195 General: Lethargic, - HEENT: Atraumatic - Sleeping, PERRLA, EOMI, Normocephalic Neck: Supple, No JVD, Negative Carotid Bruits Lungs: Diminished - Air entry slightly diminished on right side. Chest tube present on right side. Air bubble seen. Chest x-ray reviewed. Cardiovascular: Regular rate, Regular Rhythm, Normal S1, Normal S2, No murmurs Abdomen: Bowel Sounds Present, Soft, Non Tender, Non-Distended Extremities: No edema, Capillary Refill Less than 3 Seconds Musculoskeletal: Arthritic Changes, Muscle Wasting Lymphatic: No Cervical, Supraclavicular, or Inguinal Adenopathy Neurological: Cranial nerves II-XII grossly intact, Deep Tendon Reflexes 2+/4 and Symmetrical, - - Muscle stiffness and rigidity present on neck, lower extremities and upper extremities Parkinson's disease Microbiology Past 72 Hours 09/12/18 18:30 Urine, Catheterized Urine Culture - Preliminary Gram Positive Cocci Laboratory Results 09/12/18 18:05: WBC 11.4 H, RBC 4.35 L, Hgb 13.4, Hct 38.9 L, MCV 89.4, MCH 30.8, MCHC 34.4, RDW 13.2, RDW Differential 42.7, Plt Count 233, MPV 9.0, Immature Gran % (Auto) 0.200, Neut % (Auto) 76.2 H, Lymph % (Auto) 13.7 L, [place] % (Auto) 8.2, Eos % (Auto) 1.5, Baso % (Auto) 0.2, Absolute Neuts (auto) 8.7 H, Absolute Lymphs (auto) 1.56, Total Counted Not Reportable 09/12/18 18:05: Sodium 138, Potassium 3.8, Chloride 100, Carbon Dioxide 30.0, Anion Gap 8, BUN 22 H, Creatinine 0.96, Estim Creat Clear Calc 52.77, Est GFR (MDRD) Af Amer 97, Est GFR (MDRD) Non-Af 80, BUN/Creatinine Ratio 22.9 H, Glucose 98, Calcium 8.4 L, Total Bilirubin 0.80, AST 18, ALT 9 L, Alkaline Phosphatase 68, Total Protein 7.0, Albumin 3.8, Globulin 3.2, Albumin/Globulin Ratio 1.2 09/12/18 18:30: Urine Color Yellow, Urine Clarity Clear, Urine pH 6.0, Ur Specific [place] 1.020, Urine Protein 30 H, Urine Glucose (UA) Normal, Urine Ketones 5 H, Urine Occult Blood 150 H, Urine Nitrite Negative, Urine Bilirubin Negative, Urine Urobilinogen Normal, Ur Leukocyte Esterase 100 H, Urine RBC 10-25 SEEN, Urine WBC 10-25 SEEN, Ur Squamous Epith Cells 5-10 SEEN, Amorphous Sediment 1+ URATE, Urine Bacteria 0 SEEN, Urine Mucus RARE 09/13/18 06:38: WBC 7.8, RBC 3.96 L, Hgb 12.1 L, Hct 35.3 L, MCV 89.1, MCH 30.6, MCHC 34.3, RDW 13.0, RDW Differential 41.8, Plt Count 213, MPV 9.1, Immature Gran % (Auto) 0.300, Neut % (Auto) 63.1, Lymph % (Auto) 23.8, [place] % (Auto) 8.1, Eos % (Auto) 4.2, Baso % (Auto) 0.5, Absolute Neuts (auto) 4.9, Absolute Lymphs (auto) 1.86, Total Counted Not Reportable 09/13/18 06:38: Sodium 142, Potassium 3.6, Chloride 105, Carbon Dioxide 28.0, Anion Gap 9, BUN 23 H, Creatinine 0.80, Estim Creat Clear Calc 59.72, Est GFR (MDRD) Af Amer 120, Est GFR (MDRD) Non-Af 99, BUN/Creatinine Ratio 28.8 H, Glucose 79, Calcium 8.0 L Current Medications Acetaminophen (Tylenol) 500 mg PO Q6 [facility] Last Admin: 09/13/18 06:09 Dose: 500 mg Carbidopa/Levodopa (Sinemet) 1 tablet PO TIDAC [facility] Last Admin: 09/13/18 08:46 Dose: 1 tablet Dextrose (D50w Syringe) 0 gm IV X1 PRN; Protocol PRN Reason: Hypoglycemia Enoxaparin Sodium (Lovenox) 40 mg SC DAILY@1000 [facility] Last Admin: 09/13/18 08:46 Dose: 40 mg Glucagon () 1 mg IM .X1 PRN PRN Reason: Hypoglycemia Glycopyrrolate (Robinul) 1 mg PO TIDCM [facility] Last Admin: 09/13/18 08:46 Dose: 1 mg Ceftriaxone Sodium (Rocephin) 1 gm in 50 mls @ 100 mls/hr IV Q24@2200 [facility] Sodium Chloride () 250 mls @ 15 mls/hr IV .[id number] PRN PRN Reason: SALINE FLUSH Ibuprofen (Motrin) 800 mg PO TID PRN PRN PRN Reason: PAIN Melatonin (Melatonin) 3 mg PO QHS PRN PRN PRN Reason: INSOMNIA Multivitamins (Multivitamin) 1 tablet PO DAILYCM [facility] Last Admin: 09/13/18 08:46 Dose: 1 tablet Nutritional Formula (Lactose Free) (Ensure Enlive) 120 ml PO 4X/DAY [facility] Last Admin: 09/13/18 08:51 Dose: 120 ml Ondansetron HCl (Zofran) 4 mg IV Q8H PRN PRN PRN Reason: NAUSEA/VOMITING Pantoprazole Sodium (Protonix) 40 mg PO DAILY@0600 [facility] Pramipexole Dihydrochloride (Mirapex) 0.5 mg PO TIDCM [facility] Last Admin: 09/13/18 08:46 Dose: 0.5 mg Rasagiline (Azilect) 1 mg PO DAILY [facility] Last Admin: 09/13/18 08:46 Dose: 1 mg Rivastigmine Tartrate (Exelon) 3 mg PO BIDCM [facility] Last Admin: 09/13/18 08:51 Dose: 3 mg Sodium Chloride () 5 - 15 ml IV UD PRN PRN Reason: SALINE FLUSH Tamsulosin HCl (Flomax) 0.4 mg PO DAILY [facility] Last Admin: 09/13/18 09:09 Dose: Not Given Venlafaxine HCl (Effexor Xr) 75 mg PO DAILY [facility] Last Admin: 09/13/18 08:45 Dose: 75 mg Medical Necessity - Tobacco Use Smoking Status: Never smoker Assessment/Plan All Active Problems (Last Reviewed 09/13/18 @ 11:19 by Sharfi Gurrola MD) Pneumothorax (Acute) Cystitis (Acute) Fall (Acute) Anemia due to blood loss, acute (Acute) Dehydration (Acute) FTT (failure to thrive) in adult (Acute) Lower GI bleed (Acute) Diverticulitis large intestine (Acute) The patient is a 77 year old M with a significant history of severe, end-stage Parkinson's disease who presented because of a fall; and also complained of increased urination and found to have abnormal urinalysis and right-sided pneumothorax for which reason chest tube was placed. Right-sided large pneumothorax Chest x-ray and CT abdomen reviewed. First chest x-ray shows 4.8 cm large right-sided pneumothorax. Patient subsequently had chest tube placed and last chest x-ray shows about 1 cm pneumothorax, residual. Seen by Dr. Gurrola. Plan to repeat chest x-ray tomorrow morning and possible chest tube removal Acute cystitis Review of ED labs shows neutrophilic leukocytosis. UA shows 10-25 WBC, 10-25 cells RBC, positive leukocyte esterase. Empirically on IV ceftriaxone. Preliminary urine culture shows 25,000-50,000 gram-positive cocci Fall Likely due to Parkinson's disease. PT and OT to work with patient for strengthening and balance training. Home ibuprofen for chronic back pain continued. Protonix continued On Tylenol and PRN oxycodone. Plan possible TCU after seen by PT and OT. Parkinson disease Carbidopa levodopa continued Rasagiline continued Rivastigmine continued Requip continued Glycopyrrolate continued Protein Calorie Malnutrition BMI 19.4 Patient looks cachetic Ensure Enlive ordered Nutrition consult BPH Flomax continued DVT prophylaxis Subcutaneous Lovenox Pneumothorax, diagnosis, treatment, chest x-ray finding and other management plan discussed with the patient's near the bedside and son and grandkids. Microbiology Past 72 Hours 09/12/18 18:30 Urine, Catheterized Urine Culture - Preliminary Gram Positive Cocci Laboratory Results 09/12/18 18:30: Urine Color Yellow, Urine Clarity Clear, Urine pH 6.0, Ur Specific [place] 1.020, Urine Protein 30 H, Urine Glucose (UA) Normal, Urine Ketones 5 H, Urine Occult Blood 150 H, Urine Nitrite Negative, Urine Bilirubin Negative, Urine Urobilinogen Normal, Ur Leukocyte Esterase 100 H, Urine RBC 10-25 SEEN, Urine WBC 10-25 SEEN, Ur Squamous Epith Cells 5-10 SEEN, Amorphous Sediment 1+ URATE, Urine Bacteria 0 SEEN, Urine Mucus RARE 09/13/18 06:38: WBC 7.8, RBC 3.96 L, Hgb 12.1 L, Hct 35.3 L, MCV 89.1, MCH 30.6, MCHC 34.3, RDW 13.0, RDW Differential 41.8, Plt Count 213, MPV 9.1, Immature Gran % (Auto) 0.300, Neut % (Auto) 63.1, Lymph % (Auto) 23.8, [place] % (Auto) 8.1, Eos % (Auto) 4.2, Baso % (Auto) 0.5, Absolute Neuts (auto) 4.9, Absolute Lymphs (auto) 1.86, Total Counted Not Reportable 09/13/18 06:38: Sodium 142, Potassium 3.6, Chloride 105, Carbon Dioxide 28.0, Anion Gap 9, BUN 23 H, Creatinine 0.80, Estim Creat Clear Calc 59.72, Est GFR (MDRD) Af Amer 120, Est GFR (MDRD) Non-Af 99, BUN/Creatinine Ratio 28.8 H, Glucose 79, Calcium 8.0 L Code Visit Inpatient E&M: 14625 Subs Hosp L3
--- NOTE | 2018-09-13 13:18 | PN_ITS ---
Patient Problems: Active and Suspected Problems (Last Reviewed 09/13/18 @ 11:19 by Sharif Gurrola MD) Pneumothorax (Acute) Cystitis (Acute) Fall (Acute) Subjective: Patient has end-stage Parkinson disease and has severe kyphosis and cervical torticollis with her neck bent on left side. Patient is crawling position and sleeping. Talked to the patient and other family members near the bedside. Patient did not sleep last night. After waking up, he complained of mild pain. Patient had mechanical fall on 09/11 and 09/12 before admission. Patient has very limited ADL and restricted movement secondary to Parkinson's disease Vitals/I&O's: Vital Signs Temp Pulse Resp BP Pulse Ox 97.1 F L 68 15 130/75 H 94 09/13/18 09:00 09/13/18 09:00 09/13/18 09:00 09/13/18 09:00 09/13/18 09:00 Oxygen Flow Rate (L/min) [3] 15 Oxygen Flow Rate (L/min) [2] 15 Oxygen Flow Rate (L/min) [1 ( 15 Initial Baseline)] Oxygen Flow Rate (L/min) 15 Oxygen Delivery Method [3] Non-Rebreather Oxygen Delivery Method [2] Non-Rebreather Oxygen Delivery Method [1 ( Non-Rebreather Initial Baseline)] Oxygen Delivery Method Room Air Weight: 120 lb 5.958 oz Body Mass Index (BMI) 18.3 Finger Stick Blood Glucose 81 Intake and Output for Last 24 Hours 09/11/18 09/12/18 09/13/18 23:59 23:59 23:59 Intake Total 200 / 200 Output Total 5 / 5 Balance 195 / 195 General: Lethargic, - HEENT: Atraumatic - Sleeping, PERRLA, EOMI, Normocephalic Neck: Supple, No JVD, Negative Carotid Bruits Lungs: Diminished - Air entry slightly diminished on right side. Chest tube present on right side. Air bubble seen. Chest x-ray reviewed. Cardiovascular: Regular rate, Regular Rhythm, Normal S1, Normal S2, No murmurs Abdomen: Bowel Sounds Present, Soft, Non Tender, Non-Distended Extremities: No edema, Capillary Refill Less than 3 Seconds Musculoskeletal: Arthritic Changes, Muscle Wasting Lymphatic: No Cervical, Supraclavicular, or Inguinal Adenopathy Neurological: Cranial nerves II-XII grossly intact, Deep Tendon Reflexes 2+/4 and Symmetrical, - - Muscle stiffness and rigidity present on neck, lower extremities and upper extremities Parkinson's disease Microbiology Past 72 Hours 09/12/18 18:30 Urine, Catheterized Urine Culture - Preliminary Gram Positive Cocci Laboratory Results 09/12/18 18:05: WBC 11.4 H, RBC 4.35 L, Hgb 13.4, Hct 38.9 L, MCV 89.4, MCH 30.8, MCHC 34.4, RDW 13.2, RDW Differential 42.7, Plt Count 233, MPV 9.0, Immature Gran % (Auto) 0.200, Neut % (Auto) 76.2 H, Lymph % (Auto) 13.7 L, [place] % (Auto) 8.2, Eos % (Auto) 1.5, Baso % (Auto) 0.2, Absolute Neuts (auto) 8.7 H, Absolute Lymphs (auto) 1.56, Total Counted Not Reportable 09/12/18 18:05: Sodium 138, Potassium 3.8, Chloride 100, Carbon Dioxide 30.0, Anion Gap 8, BUN 22 H, Creatinine 0.96, Estim Creat Clear Calc 52.77, Est GFR (MDRD) Af Amer 97, Est GFR (MDRD) Non-Af 80, BUN/Creatinine Ratio 22.9 H, Glucose 98, Calcium 8.4 L, Total Bilirubin 0.80, AST 18, ALT 9 L, Alkaline Phosphatase 68, Total Protein 7.0, Albumin 3.8, Globulin 3.2, Albumin/Globulin Ratio 1.2 09/12/18 18:30: Urine Color Yellow, Urine Clarity Clear, Urine pH 6.0, Ur Specific [place] 1.020, Urine Protein 30 H, Urine Glucose (UA) Normal, Urine Ketones 5 H, Urine Occult Blood 150 H, Urine Nitrite Negative, Urine Bilirubin Negative, Urine Urobilinogen Normal, Ur Leukocyte Esterase 100 H, Urine RBC 10- 25 SEEN, Urine WBC 10-25 SEEN, Ur Squamous Epith Cells 5-10 SEEN, Amorphous Sediment 1+ URATE, Urine Bacteria 0 SEEN, Urine Mucus RARE 09/13/18 06:38: WBC 7.8, RBC 3.96 L, Hgb 12.1 L, Hct 35.3 L, MCV 89.1, MCH 30.6, MCHC 34.3, RDW 13.0, RDW Differential 41.8, Plt Count 213, MPV 9.1, Immature Gran % (Auto) 0.300, Neut % (Auto) 63.1, Lymph % (Auto) 23.8, [place] % (Auto) 8.1, Eos % (Auto) 4.2, Baso % (Auto) 0.5, Absolute Neuts (auto) 4.9, Absolute Lymphs (auto) 1.86, Total Counted Not Reportable 09/13/18 06:38: Sodium 142, Potassium 3.6, Chloride 105, Carbon Dioxide 28.0, Anion Gap 9, BUN 23 H, Creatinine 0.80, Estim Creat Clear Calc 59.72, Est GFR (MDRD) Af Amer 120, Est GFR (MDRD) Non-Af 99, BUN/Creatinine Ratio 28.8 H, Glucose 79, Calcium 8.0 L Current Medications Acetaminophen (Tylenol) 500 mg PO Q6 [facility] Last Admin: 09/13/18 06:09 Dose: 500 mg Carbidopa/Levodopa (Sinemet) 1 tablet PO TIDAC [facility] Last Admin: 09/13/18 08:46 Dose: 1 tablet Dextrose (D50w Syringe) 0 gm IV X1 PRN; Protocol PRN Reason: Hypoglycemia Enoxaparin Sodium (Lovenox) 40 mg SC DAILY@1000 [facility] Last Admin: 09/13/18 08:46 Dose: 40 mg Glucagon () 1 mg IM .X1 PRN PRN Reason: Hypoglycemia Glycopyrrolate (Robinul) 1 mg PO TIDCM [facility] Last Admin: 09/13/18 08:46 Dose: 1 mg Ceftriaxone Sodium (Rocephin) 1 gm in 50 mls @ 100 mls/hr IV Q24@2200 [facility] Sodium Chloride () 250 mls @ 15 mls/hr IV .[id number] PRN PRN Reason: SALINE FLUSH Ibuprofen (Motrin) 800 mg PO TID PRN PRN PRN Reason: PAIN Melatonin (Melatonin) 3 mg PO QHS PRN PRN PRN Reason: INSOMNIA Multivitamins (Multivitamin) 1 tablet PO DAILYCM [facility] Last Admin: 09/13/18 08:46 Dose: 1 tablet Nutritional Formula (Lactose Free) (Ensure Enlive) 120 ml PO 4X/DAY [facility] Last Admin: 09/13/18 08:51 Dose: 120 ml Ondansetron HCl (Zofran) 4 mg IV Q8H PRN PRN PRN Reason: NAUSEA/VOMITING Pantoprazole Sodium (Protonix) 40 mg PO DAILY@0600 [facility] Pramipexole Dihydrochloride (Mirapex) 0.5 mg PO TIDCM [facility] Last Admin: 09/13/18 08:46 Dose: 0.5 mg Rasagiline (Azilect) 1 mg PO DAILY [facility] Last Admin: 09/13/18 08:46 Dose: 1 mg Rivastigmine Tartrate (Exelon) 3 mg PO BIDCM [facility] Last Admin: 09/13/18 08:51 Dose: 3 mg Sodium Chloride () 5 - 15 ml IV UD PRN PRN Reason: SALINE FLUSH Tamsulosin HCl (Flomax) 0.4 mg PO DAILY [facility] Last Admin: 09/13/18 09:09 Dose: Not Given Venlafaxine HCl (Effexor Xr) 75 mg PO DAILY [facility] Last Admin: 09/13/18 08:45 Dose: 75 mg Medical Necessity - Tobacco Use Smoking Status: Never smoker Assessment/Plan All Active Problems (Last Reviewed 09/13/18 @ 11:19 by Sharif Gurrola MD) Pneumothorax (Acute) Cystitis (Acute) Fall (Acute) Anemia due to blood loss, acute (Acute) Dehydration (Acute) FTT (failure to thrive) in adult (Acute) Lower GI bleed (Acute) Diverticulitis large intestine (Acute) The patient is a 77 year old M with a significant history of severe, end-stage Parkinson's disease who presented because of a fall; and also complained of increased urination and found to have abnormal urinalysis and right-sided pneumothorax for which reason chest tube was placed. Right-sided large pneumothorax Chest x-ray and CT abdomen reviewed. First chest x-ray shows 4.8 cm large right-sided pneumothorax. Patient subsequently had chest tube placed and last chest x-ray shows about 1 cm pneumothorax, residual. Seen by Dr. Gurrola. Plan to repeat chest x-ray tomorrow morning and possible chest tube removal Acute cystitis Review of ED labs shows neutrophilic leukocytosis. UA shows 10-25 WBC, 10-25 cells RBC, positive leukocyte esterase. Empirically on IV ceftriaxone. Preliminary urine culture shows 25,000-50,000 gram-positive cocci Fall Likely due to Parkinson's disease. PT and OT to work with patient for strengthening and balance training. Home ibuprofen for chronic back pain continued. Protonix continued On Tylenol and PRN oxycodone. Plan possible TCU after seen by PT and OT. Parkinson disease Carbidopa levodopa continued Rasagiline continued Rivastigmine continued Requip continued Glycopyrrolate continued Protein Calorie Malnutrition BMI 19.4 Patient looks cachetic Ensure Enlive ordered Nutrition consult BPH Flomax continued DVT prophylaxis Subcutaneous Lovenox Pneumothorax, diagnosis, treatment, chest x-ray finding and other management plan discussed with the patient's near the bedside and son and grandkids. Microbiology Past 72 Hours 09/12/18 18:30 Urine, Catheterized Urine Culture - Preliminary Gram Positive Cocci Laboratory Results 09/12/18 18:30: Urine Color Yellow, Urine Clarity Clear, Urine pH 6.0, Ur Specific [place] 1.020, Urine Protein 30 H, Urine Glucose (UA) Normal, Urine Ketones 5 H, Urine Occult Blood 150 H, Urine Nitrite Negative, Urine Bilirubin Negative, Urine Urobilinogen Normal, Ur Leukocyte Esterase 100 H, Urine RBC 10- 25 SEEN, Urine WBC 10-25 SEEN, Ur Squamous Epith Cells 5-10 SEEN, Amorphous Sediment 1+ URATE, Urine Bacteria 0 SEEN, Urine Mucus RARE 09/13/18 06:38: WBC 7.8, RBC 3.96 L, Hgb 12.1 L, Hct 35.3 L, MCV 89.1, MCH 30.6, MCHC 34.3, RDW 13.0, RDW Differential 41.8, Plt Count 213, MPV 9.1, Immature Gran % (Auto) 0.300, Neut % (Auto) 63.1, Lymph % (Auto) 23.8, [place] % (Auto) 8.1, Eos % (Auto) 4.2, Baso % (Auto) 0.5, Absolute Neuts (auto) 4.9, Absolute Lymphs (auto) 1.86, Total Counted Not Reportable 09/13/18 06:38: Sodium 142, Potassium 3.6, Chloride 105, Carbon Dioxide 28.0, Anion Gap 9, BUN 23 H, Creatinine 0.80, Estim Creat Clear Calc 59.72, Est GFR ( MDRD) Af Amer 120, Est GFR (MDRD) Non-Af 99, BUN/Creatinine Ratio 28.8 H, Glucose 79, Calcium 8.0 L Code Visit Inpatient E&M: 50647 Subs Hosp L3
[2018-09-13 15:00] VITALS: BP 150/85; PULSE 79; RESP 18; TEMP 37.2; O2SAT 94
[2018-09-13] MEDS: Ibuprofen 400 MG Tablet 800 MG PO (17:37)
[2018-09-13 20:40] VITALS: BP 144/83; PULSE 71; RESP 18; TEMP 36.7; O2SAT 95
[2018-09-13] MEDS: Ceftriaxone 1 GM/50 ML BAG IV (21:13)
[2018-09-13] MEDS: 0.9% NaCl Peripheral Flush Adult/Peds IV (21:13)
[2018-09-13] MEDS: 0.9% Normal Saline 1,000 ML 50 ML IV (23:55)
[2018-09-14 02:38] VITALS: BP 133/64; PULSE 66; RESP 20; TEMP 36.6; O2SAT 96
--- NOTE | 2018-09-14 05:55 | RAD_ITS ---
STUDY: X-RAY CHEST REASON FOR EXAM: Male, 77 years old. Pneumothorax. TECHNIQUE: Single AP portable view of the chest. COMPARISON: Comparison is made with prior study dated September 13, 2018. FINDINGS: Minimal residual right apical pneumothorax. A small caliber chest tube is seen with the tip in the medial aspect of the right upper lobe. Stable mild increased markings at the lung bases. Normal size heart. Normal mediastinum and ashanti. Normal visualized pulmonary arteries. There is atherosclerotic tortuosity of the aortic arch and descending thoracic aorta. There is demineralization of the osseous structures. Prior vertebroplasty of a lower dorsal vertebrae. Normal visualized ribs, clavicles, and shoulders. There is no demonstrated abnormality of the visualized soft tissue structures of the upper abdomen. RAD/Chest 1 View (Portable) IMPRESSION: Minimal residual right apical pneumothorax. There has been no change. Electronically Signed: Corby Figueroa, at 13:05 EDT , Service support ,
[2018-09-14] MEDS: Acetaminophen 500 MG Tablet PO (06:25)
[2018-09-14] MEDS: Carbidopa/Levodopa 25/100 Tablet PO ×2 (06:26→11:09)
[2018-09-14] MEDS: Pantoprazole Sodium 40 MG Tablet PO (06:26)
[2018-09-14 07:16] VITALS: O2SAT 97
--- NOTE | 2018-09-14 08:25 | NURSING ---
Patient's significant other was standing at desk. I offered assistance, to which she asked a number of questions about the patient. I attempted to answer questions and demonstrated that the patient was receiving IV fluids (Normal Saline at 50mls/hr) since this was her primary complaint. While in the patient's room, we repositioned him onto his right side with the use of pillows to help offload weight from his left side which he seems to favor laying on. Patient's significant other confirms that he often favors this side when laying. Informed Estephania ADDISON of additional questions and desire to speak to the patient's primary RN.
[2018-09-14 08:51] VITALS: BP 164/78; PULSE 67; RESP 16; TEMP 37.8; O2SAT 96
--- NOTE | 2018-09-14 09:04 | CT_ITS ---
STUDY: CT BRAIN WITHOUT CONTRAST REASON FOR EXAM: Male, 77 years old. Fall. Lethargy. History of Parkinson's disease. RADIATION DOSAGE (If Supplied By Facility): CTDIvol = ( 20.80 ) mGy, DLP = ( 392.06 ) mGycm TECHNIQUE: Transaxial CT imaging of the brain was performed without administration of intravenous contrast material. Individualized dose optimization techniques were used for this CT. COMPARISON: Comparison is made with prior study dated September 12, 2018. FINDINGS: Normal soft tissue structures. Normal calvarium. There is mild cerebral atrophy with widening of the extra-axial spaces and ventricular dilatation. There are areas of decreased attenuation within the white matter tracts of the supratentorial brain, consistent with microvascular disease changes. Stable appearance of the cavum septum pellucidum. Stable lacuna in the insular cortex of the left temporal lobe. Normal brainstem. Normal cerebellum. There is no intracranial hemorrhage. There are no findings of an acute ischemic infarction. Normal visualized paranasal sinuses. CT/Brain/Head without Contrast IMPRESSION: Chronic involutional changes of the brain. Stable examination. Electronically Signed: Corby Figueroa, at 11:19 EDT , Service support ,
[2018-09-14 09:10] VITALS: PULSE 64
[2018-09-14 09:38] LABS: Hematocrit 34.8 % (40-54); Hemoglobin 12.1 g/dl (13.0-16.5); Mean Corp Hgb Conc 34.8 g/gl (32-36); Mean Corpuscular Hgb 30.9 pg (27.0-32.0); Mean Platelet Vol. 8.7 fl (6.2-12.0); Platelet Count 221 K/mm3 (150-450); RBC Distribution Width CV 13.2 % (11.6-14.6); RBC Distribution Width SD 42.3 fl (35.1-43.9); Red Blood Count 3.91 M/mm3 (4.6-6.2); White Blood Count 10.6 K/mm3 (4.4-11.0)
[2018-09-14 09:39] LABS: Scan Indicated on CBC? Y/N NO
[2018-09-14 09:59] LABS: Anion Gap 7 (5-15); BUN 31 mg/dL (7-18); BUN/Creat Ratio 42.8 RATIO (10-20); Calcium,Total 7.9 mg/dL (8.5-10.1); Chloride 107 mmol/L (98-107); Creatinine, Serum 0.72 mg/dL (0.70-1.30); EST Glomerular Filtration Rate 112 mL/min (>60); Est Glom Filt Rate - Afr Amer 135 mL/min (>60); Estimated Creatinine Clearance 47.78 ml/min; Glucose 76 mg/dL (74-106); Potassium 3.7 mmol/L (3.5-5.1); Sodium Level 140 mmol/L (136-145)
[2018-09-14] MEDS: 0.9% NaCl Peripheral Flush Adult/Peds IV ×4 (10:05→21:54)
--- NOTE | 2018-09-14 10:13 | PCM.PN.HOSP ---
Patient Problems: Active and Suspected Problems (Last Reviewed 09/13/18 @ 11:19 by Sharif Gurrola MD) Pneumothorax (Acute) Cystitis (Acute) Fall (Acute) Subjective: Patient seen and examined. He was admitted for recurrent mechanical falls and was found to have a large right-sided pneumothorax. He is status post chest tube placement. She also found to have UTI and is on IV ceftriaxone. Patient was very lethargic and was not able to respond when spoken to. His was by his bedside and had several concerns including the fact that his temperature had spiked 200.1 Fahrenheit today. She also said he had not eaten or drank anything since admission. She states his baseline at home is that he is usually able to eat and drink and communicate well and able to ambulate with a walker. Unable to do review of systems as patient is not very responsive. Vitals/I&O's: Vital Signs Temp Pulse Resp BP Pulse Ox 100.1 F H 67 16 164/78 H 96 09/14/18 08:51 09/14/18 08:51 09/14/18 08:51 09/14/18 08:51 09/14/18 08:51 Oxygen Flow Rate (L/min) [3] 15 Oxygen Flow Rate (L/min) [2] 15 Oxygen Flow Rate (L/min) [1 ( 15 Initial Baseline)] Oxygen Flow Rate (L/min) 15 Oxygen Delivery Method [3] Non-Rebreather Oxygen Delivery Method [2] Non-Rebreather Oxygen Delivery Method [1 ( Non-Rebreather Initial Baseline)] Oxygen Delivery Method Room Air Weight: 120 lb 5.958 oz Body Mass Index (BMI) 18.3 Finger Stick Blood Glucose 81 Intake and Output for Last 24 Hours 09/12/18 09/13/18 09/14/18 23:59 23:59 23:59 Intake Total 200 / 200 876 / 876 Output Total / Balance 195 / 195 876 / 876 General: Lethargic, - - obtunded HEENT: Atraumatic, PERRLA, EOMI, Normocephalic Oral: Dry Mucosa Neck: Supple, No JVD, Negative Carotid Bruits Lungs: - - minimally decreased breath sounds bibasally, no wheezes or crackles. 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; minimal spontaneous movement of lower extremities noted Psych/Mental Status: - - obtunded Microbiology Past 72 Hours 09/12/18 18:30 Urine, Catheterized Urine Culture - Final Enterococcus faecalis Laboratory Results 09/14/18 09:20: WBC 10.6, RBC 3.91 L, Hgb 12.1 L, Hct 34.8 L, MCV 89.0, MCH 30.9, MCHC 34.8, RDW 13.2, RDW Differential 42.3, Plt Count 221, MPV 8.7 09/14/18 09:20: Sodium 140, Potassium 3.7, Chloride 107, Carbon Dioxide 26.0, Anion Gap 7, BUN 31 H, Creatinine 0.72, Estim Creat Clear Calc 47.78, Est GFR (MDRD) Af Amer 135, Est GFR (MDRD) Non-Af 112, BUN/Creatinine Ratio 42.8 H, Glucose 76, Calcium 7.9 L Diagnostic Data Abdomen/Pelvis CT 09/12/18 17:59 IMPRESSION: 1. Large right pneumothorax partially visualized. 2. No abdominal ascites or pneumoperitoneum. 3. Moderate fecal retention. 4. Similar degenerative and operative changes of the lumbar spine. Lower thoracic and upper lumbar vertebral body compression fractures are similar since 2017. 5. Atherosclerosis. 6. Nonobstructing renal calculi. Electronically Signed: Flavoi Jacome MD at 19:23 EDT , Service support , Brain CT 09/12/18 18:24 IMPRESSION: 1. No acute intracranial hemorrhage or mass effect. 2. Central parenchymal volume loss. White matter changes that are nonspecific but most commonly associated with chronic small vessel ischemic disease. Electronically Signed: Flavio Jacome MD at 19:18 EDT , Service support , Current Medications Acetaminophen (Tylenol) 500 mg PO Q6 [facility] Last Admin: 09/14/18 06:25 Dose: 500 mg Carbidopa/Levodopa (Sinemet) 1 tablet PO TIDAC [facility] Last Admin: 09/14/18 06:26 Dose: 1 tablet Dextrose (D50w Syringe) 0 gm IV X1 PRN; Protocol PRN Reason: Hypoglycemia Enoxaparin Sodium (Lovenox) 40 mg SC DAILY@1000 [facility] Last Admin: 09/13/18 08:46 Dose: 40 mg Glucagon () 1 mg IM .X1 PRN PRN Reason: Hypoglycemia Glycopyrrolate (Robinul) 1 mg PO TIDCM [facility] Last Admin: 09/14/18 09:07 Dose: Not Given Ceftriaxone Sodium (Rocephin) 1 gm in 50 mls @ 100 mls/hr IV Q24@2200 [facility] Last Admin: 09/13/18 21:13 Dose: 100 mls/hr Sodium Chloride () 250 mls @ 15 mls/hr IV .[id number] PRN PRN Reason: SALINE FLUSH Sodium Chloride () 1,000 mls @ 50 mls/hr IV .Q20H [facility] Stop: 09/14/18 17:59 Last Admin: 09/13/18 23:55 Dose: 50 mls/hr Ibuprofen (Motrin) 800 mg PO TID PRN PRN PRN Reason: PAIN Last Admin: 09/13/18 17:37 Dose: 800 mg Melatonin (Melatonin) 3 mg PO QHS PRN PRN PRN Reason: INSOMNIA Multivitamins (Multivitamin) 1 tablet PO DAILYCM [facility] Last Admin: 09/14/18 09:07 Dose: Not Given Nutritional Formula (Lactose Free) (Ensure Enlive) 120 ml PO 4X/DAY [facility] Last Admin: 09/13/18 21:13 Dose: 120 ml Ondansetron HCl (Zofran) 4 mg IV Q8H PRN PRN PRN Reason: NAUSEA/VOMITING Pantoprazole Sodium (Protonix) 40 mg PO DAILY@0600 [facility] Last Admin: 09/14/18 06:26 Dose: 40 mg Pramipexole Dihydrochloride (Mirapex) 0.5 mg PO TIDCM [facility] Last Admin: 09/14/18 09:07 Dose: Not Given Rasagiline (Azilect) 1 mg PO DAILY [facility] Last Admin: 09/13/18 08:46 Dose: 1 mg [facility]ast[facility]ine [facility] ([facility] Last Admin: 09/14/18 09:06 Dose: Not Given Sodium Chloride () 5 - 15 ml IV UD PRN PRN Reason: SALINE FLUSH Last Admin: 09/14/18 10:05 Dose: 10 ml Tamsulosin HCl (Flomax) 0.4 mg PO DAILY [facility] Last Admin: 09/13/18 09:09 Dose: Not Given Venlafaxine HCl (Effexor Xr) 75 mg PO DAILY [facility] Last Admin: 09/13/18 08:45 Dose: 75 mg Medical Necessity - Tobacco Use Smoking Status: Never smoker Assessment/Plan All Active Problems (Last Reviewed 09/13/18 @ 11:19 by Sharif Gurrola MD) Pneumothorax (Acute) Cystitis (Acute) Fall (Acute) Anemia due to blood loss, acute (Acute) Dehydration (Acute) FTT (failure to thrive) in adult (Acute) Lower GI bleed (Acute) Diverticulitis large intestine (Acute) 1. Acute metabolic encephalopathy due to UTI and possible dehydration temperature noted to have increased to 100.1F today urine cultured Enterococcus. patient is much more obtunded today will get blood cultures will switch IV antibiotics to IV levofloxacin, per sensitivity report continue hydrating with IVF will get CT brain without contrast for swallow evaluation by speech therapy o/a of risk of aspiration 2.Right sided pneumothorax: general surgery on board; has chest tube in place. 3. Debility due to mechanical falls: fell at home, resulting in pneumothorax. PT//OT on board. on ibuprofen and tylenol for pain. Will dc oxycodone due to worsening obtundation. 4. Parkinsons disease: on carbidopa, rivastigmine, rasagiline and Requip. 5. Protein calorie malnutrition: BMI is only ~ 18. Nutrition on board. 6. BPH: on flomax DVT prophylaxis: lovenox Code status: DNRCCA Code Visit Inpatient E&M: 13769 Subs Hosp L3
--- NOTE | 2018-09-14 10:18 | PN_ITS ---
Patient Problems: Active and Suspected Problems (Last Reviewed 09/13/18 @ 11:19 by Sharif Gurrola MD) Pneumothorax (Acute) Cystitis (Acute) Fall (Acute) Subjective: Patient seen and examined. He was admitted for recurrent mechanical falls and was found to have a large right-sided pneumothorax. He is status post chest tube placement. She also found to have UTI and is on IV ceftriaxone. Patient was very lethargic and was not able to respond when spoken to. His was by his bedside and had several concerns including the fact that his temperature had spiked 200.1 Fahrenheit today. She also said he had not eaten or drank anything since admission. She states his baseline at home is that he is usually able to eat and drink and communicate well and able to ambulate with a walker. Unable to do review of systems as patient is not very responsive. Vitals/I&O's: Vital Signs Temp Pulse Resp BP Pulse Ox 100.1 F H 67 16 164/78 H 96 09/14/18 08:51 09/14/18 08:51 09/14/18 08:51 09/14/18 08:51 09/14/18 08:51 Oxygen Flow Rate (L/min) [3] 15 Oxygen Flow Rate (L/min) [2] 15 Oxygen Flow Rate (L/min) [1 ( 15 Initial Baseline)] Oxygen Flow Rate (L/min) 15 Oxygen Delivery Method [3] Non-Rebreather Oxygen Delivery Method [2] Non-Rebreather Oxygen Delivery Method [1 ( Non-Rebreather Initial Baseline)] Oxygen Delivery Method Room Air Weight: 120 lb 5.958 oz Body Mass Index (BMI) 18.3 Finger Stick Blood Glucose 81 Intake and Output for Last 24 Hours 09/12/18 09/13/18 09/14/18 23:59 23:59 23:59 Intake Total 200 / 200 876 / 876 Output Total / Balance 195 / 195 876 / 876 General: Lethargic, - - obtunded HEENT: Atraumatic, PERRLA, EOMI, Normocephalic Oral: Dry Mucosa Neck: Supple, No JVD, Negative Carotid Bruits Lungs: - - minimally decreased breath sounds bibasally, no wheezes or crackles. 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; minimal spontaneous movement of lower extremities noted Psych/Mental Status: - - obtunded Microbiology Past 72 Hours 09/12/18 18:30 Urine, Catheterized Urine Culture - Final Enterococcus faecalis Laboratory Results 09/14/18 09:20: WBC 10.6, RBC 3.91 L, Hgb 12.1 L, Hct 34.8 L, MCV 89.0, MCH 30.9, MCHC 34.8, RDW 13.2, RDW Differential 42.3, Plt Count 221, MPV 8.7 09/14/18 09:20: Sodium 140, Potassium 3.7, Chloride 107, Carbon Dioxide 26.0, Anion Gap 7, BUN 31 H, Creatinine 0.72, Estim Creat Clear Calc 47.78, Est GFR (MDRD) Af Amer 135, Est GFR (MDRD) Non-Af 112, BUN/Creatinine Ratio 42.8 H, Glucose 76, Calcium 7.9 L Diagnostic Data Abdomen/Pelvis CT 09/12/18 17:59 IMPRESSION: 1. Large right pneumothorax partially visualized. 2. No abdominal ascites or pneumoperitoneum. 3. Moderate fecal retention. 4. Similar degenerative and operative changes of the lumbar spine. Lower thoracic and upper lumbar vertebral body compression fractures are similar since 2017. 5. Atherosclerosis. 6. Nonobstructing renal calculi. Electronically Signed: Flavio Jacome MD at 19:23 EDT , Service support , Brain CT 09/12/18 18:24 IMPRESSION: 1. No acute intracranial hemorrhage or mass effect. 2. Central parenchymal volume loss. White matter changes that are nonspecific but most commonly associated with chronic small vessel ischemic disease. Electronically Signed: Flavio Jacome MD at 19:18 EDT , Service support , Current Medications Acetaminophen (Tylenol) 500 mg PO Q6 [facility] Last Admin: 09/14/18 06:25 Dose: 500 mg Carbidopa/Levodopa (Sinemet) 1 tablet PO TIDAC [facility] Last Admin: 09/14/18 06:26 Dose: 1 tablet Dextrose (D50w Syringe) 0 gm IV X1 PRN; Protocol PRN Reason: Hypoglycemia Enoxaparin Sodium (Lovenox) 40 mg SC DAILY@1000 [facility] Last Admin: 09/13/18 08:46 Dose: 40 mg Glucagon () 1 mg IM .X1 PRN PRN Reason: Hypoglycemia Glycopyrrolate (Robinul) 1 mg PO TIDCM [facility] Last Admin: 09/14/18 09:07 Dose: Not Given Ceftriaxone Sodium (Rocephin) 1 gm in 50 mls @ 100 mls/hr IV Q24@2200 [facility] Last Admin: 09/13/18 21:13 Dose: 100 mls/hr Sodium Chloride () 250 mls @ 15 mls/hr IV .[id number] PRN PRN Reason: SALINE FLUSH Sodium Chloride () 1,000 mls @ 50 mls/hr IV .Q20H [facility] Stop: 09/14/18 17:59 Last Admin: 09/13/18 23:55 Dose: 50 mls/hr Ibuprofen (Motrin) 800 mg PO TID PRN PRN PRN Reason: PAIN Last Admin: 09/13/18 17:37 Dose: 800 mg Melatonin (Melatonin) 3 mg PO QHS PRN PRN PRN Reason: INSOMNIA Multivitamins (Multivitamin) 1 tablet PO DAILYCM [facility] Last Admin: 09/14/18 09:07 Dose: Not Given Nutritional Formula (Lactose Free) (Ensure Enlive) 120 ml PO 4X/DAY [facility] Last Admin: 09/13/18 21:13 Dose: 120 ml Ondansetron HCl (Zofran) 4 mg IV Q8H PRN PRN PRN Reason: NAUSEA/VOMITING Pantoprazole Sodium (Protonix) 40 mg PO DAILY@0600 [facility] Last Admin: 09/14/18 06:26 Dose: 40 mg Pramipexole Dihydrochloride (Mirapex) 0.5 mg PO TIDCM [facility] Last Admin: 09/14/18 09:07 Dose: Not Given Rasagiline (Azilect) 1 mg PO DAILY [facility] Last Admin: 09/13/18 08:46 Dose: 1 mg Rivastigmine Tartrate (Exelon) [facility] Last Admin: 09/14/18 09:06 Dose: Not Given Sodium Chloride () 5 - 15 ml IV UD PRN PRN Reason: SALINE FLUSH Last Admin: 09/14/18 10:05 Dose: 10 ml Tamsulosin HCl (Flomax) 0.4 mg PO DAILY [facility] Last Admin: 09/13/18 09:09 Dose: Not Given Venlafaxine HCl (Effexor Xr) 75 mg PO DAILY [facility] Last Admin: 09/13/18 08:45 Dose: 75 mg Medical Necessity - Tobacco Use Smoking Status: Never smoker Assessment/Plan All Active Problems (Last Reviewed 09/13/18 @ 11:19 by Sharif Gurrola MD) Pneumothorax (Acute) Cystitis (Acute) Fall (Acute) Anemia due to blood loss, acute (Acute) Dehydration (Acute) FTT (failure to thrive) in adult (Acute) Lower GI bleed (Acute) Diverticulitis large intestine (Acute) 1. Acute metabolic encephalopathy due to UTI and possible dehydration * temperature noted to have increased to 100.1F today * urine cultured Enterococcus. * patient is much more obtunded today * will get blood cultures * will switch IV antibiotics to IV levofloxacin, per sensitivity report * continue hydrating with IVF * will get CT brain without contrast * for swallow evaluation by speech therapy o/a of risk of aspiration * 2.Right sided pneumothorax: general surgery on board; has chest tube in place. 3. Debility due to mechanical falls: * fell at home, resulting in pneumothorax. * PT//OT on board. on ibuprofen and tylenol for pain. * Will dc oxycodone due to worsening obtundation. 4. Parkinsons disease: on carbidopa, rivastigmine, rasagiline and Requip. 5. Protein calorie malnutrition: BMI is only ~ 18. Nutrition on board. 6. BPH: on flomax DVT prophylaxis: lovenox Code status: DNRCCA Code Visit Inpatient E&M: 90304 Subs Hosp L3
--- NOTE | 2018-09-14 10:23 | PN.SURG_ITS ---
Patient Problems: Active and Suspected Problems (Last Reviewed 09/13/18 @ 11:19 by Sharif Gurrola MD) Pneumothorax (Acute) Cystitis (Acute) Fall (Acute) Subjective: Patient evaluated resting in bed. is present in the room. She notes patient has a history of Parkinson's disease. She notes patient has been more lethargic for the last 2 days. She is also concerned that the patient is not eating or drinking his ensure. She feels the patient is not getting enough fluids. Patient's is very concerned. Patient had a CXR this morning which has not been officially read however, to me looks as though the has been improvement of the pneumothorax. - Physical Exam General: Alert, Oriented x3, Cooperative Lungs: Clear to auscultation, Wheezes - very slight bilaterally. Vital Signs Temp Pulse Resp BP Pulse Ox 100.1 F H 67 16 164/78 H 96 09/14/18 08:51 09/14/18 08:51 09/14/18 08:51 09/14/18 08:51 09/14/18 08:51 Oxygen Flow Rate (L/min) [3] 15 Oxygen Flow Rate (L/min) [2] 15 Oxygen Flow Rate (L/min) [1 ( 15 Initial Baseline)] Oxygen Flow Rate (L/min) 15 Oxygen Delivery Method [3] Non-Rebreather Oxygen Delivery Method [2] Non-Rebreather Oxygen Delivery Method [1 ( Non-Rebreather Initial Baseline)] Oxygen Delivery Method Room Air Weight: 120 lb 5.958 oz Body Mass Index (BMI) 18.3 Finger Stick Blood Glucose 81 Intake and Output for Last 24 Hours 09/12/18 09/13/18 09/14/18 23:59 23:59 23:59 Intake Total 200 / 200 876 / 876 Output Total 5 / 5 Balance 195 / 195 876 / 876 Microbiology Past 72 Hours 09/12/18 18:30 Urine Culture - Final Urine, Catheterized Enterococcus faecalis Laboratory Tests Past 24 Hrs 09/14/18 09/14/18 09:20 09:20 WBC 10.6 RBC 3.91 L Hgb 12.1 L Hct 34.8 L MCV 89.0 MCH 30.9 MCHC 34.8 RDW 13.2 RDW Differential 42.3 Plt Count 221 MPV 8.7 Sodium 140 Potassium 3.7 Chloride 107 Carbon Dioxide 26.0 Anion Gap 7 BUN 31 H Creatinine 0.72 Estim Creat Clear Calc 47.78 Est GFR (MDRD) Af Amer 135 Est GFR (MDRD) Non-Af 112 BUN/Creatinine Ratio 42.8 H Glucose 76 Calcium 7.9 L Medical Necessity - Tobacco Use Smoking Status: Never smoker Assessment/Plan All Active Problems (Last Reviewed 09/13/18 @ 11:19 by Sharif Gurrola MD) Pneumothorax (Acute) Cystitis (Acute) Fall (Acute) Anemia due to blood loss, acute (Acute) Dehydration (Acute) FTT (failure to thrive) in adult (Acute) Lower GI bleed (Acute) Diverticulitis large intestine (Acute) I am following this patient in conjunction with Dr. Gurrola. Right pneumothorax Unofficial report appears to have improvement with pneumothorax Will place chest tube to water seal and repeat CXR at noon Dr. Gurrola will round on the patient after the noon chest x-ray and possibly remove the chest tube We will continue to monitor this patient Code Visit Inpatient E&M: 76999 [facility] Hosp L1
[2018-09-14] MEDS: Enoxaparin 40 MG/0.4 ML Syringe SC (11:05)
--- NOTE | 2018-09-14 12:00 | RAD_ITS ---
STUDY: X-RAY CHEST REASON FOR EXAM: Male, 77 years old. History of pneumothorax. TECHNIQUE: Single AP portable view of the chest. COMPARISON: Comparison is made with prior examination dated September 13, 2018. FINDINGS: A small caliber chest tube is seen with the tip in the medial aspect of the right upper lobe. This is unchanged. Electrodes from a pain stimulator device is seen overlying the mid thoracic spine. Since prior study, there has been progression of the right apical pneumothorax measuring approximately 5%. Increased markings at the left lung base suggestive of left basilar atelectasis. Normal size heart. Normal mediastinum and ashanti. Normal visualized pulmonary arteries. There is atherosclerotic tortuosity of the aortic arch and descending thoracic aorta. There is a dextroscoliosis of the thoracic spine. Vertebroplasty of lower dorsal vertebrae. Normal visualized ribs, clavicles, and shoulders. There is no demonstrated abnormality of the visualized soft tissue structures of the upper abdomen. RAD/Chest 1 View (Portable) IMPRESSION: Increase in size of the right apical pneumothorax. Mild left basilar atelectasis. Electronically Signed: Corby Figueroa, at 11:17 EDT , Service support ,
[2018-09-14] MEDS: Ketorolac 30 MG/ML Syringe IV ×2 (12:16→21:54)
[2018-09-14] MEDS: 0.9% Normal Saline 1,000 ML 100 ML IV (12:16)
[2018-09-14] MEDS: Ciprofloxacin 400 MG/200 ML BAG 200 MG IV ×2 (12:16→21:51)
--- NOTE | 2018-09-14 13:07 | CASEMGMT ---
RN CM Assessment Presentation: Pneumothorax, chest tube. Fall, body spasm, Hx of Parkinson's Intro role of CM and purpose of RN CM assessment to patient, his and friend. Pt currently nonverbal. opens eyes, smiles, but not verbally responding. and friend were able to participate in assessment. Demographics, PCP and Pharmacy verified. pt's stated two days prior to admission pt had been ambulating with walker, eating and able to communicate. PCP: Tereso Abraham Specialists: Dr. Gurrola Preferred Pharmacy: [facility] Pharmacy Insurance: [employer] [facility] Prescription Benefit: yes LNOK: Harriet Yan Living Arrangements: Lives in home with . Stairs to upstairs bedroom. Pt has stair climber. assists with showers, dressing, home care. 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 states they had ensure @ home for pt in addition to his meals. Transportation: drives DME: walker, wheelchair, chair lift, shower chair for Tub/shower setup. No home oxygen use. HHC: none present. If recommended, choice is [facility]. Patient DC goals: unknown. states she would like referral to TCU (stated she did not want [facility]). SW Referral: possible SNF placement. ANNA Brownlee updated. DC PLAN: anticipate will need SNF on dc. Tong NEGRON RN ACM
--- NOTE | 2018-09-14 13:23 | CASEMGMT ---
Social Work Note RN VAN Arizmendi updated this worker that pt's would like pt to go to TCU at discharge. SW placed a call to Marika in TCU and provided referral. Marika states she has beds available. SW informed Marika that PT/OT hasn't been able to work with pt yet but this worker can update her when PT/OT works with pt and she can submit for pre-cert. Marika states understanding. SW met with pt and pt's Harriet. SW informed Harriet that TCU has a bed available and once PT/OT works with pt, pre-cert can be submitted. SW informed Harriet that pt has to work with PT/OT in order to get approval for pt to go to SNF. Harriet states understanding. SW provided Harriet with business card. Plan: TCU pending pre-cert Zandra Villar [employer] [address] MAN, [employer] TECHNICIAN
[2018-09-14 17:39] VITALS: BP 175/81; PULSE 68; RESP 18; TEMP 37.8; O2SAT 96
[2018-09-14 21:50] VITALS: BP 172/86; PULSE 61; RESP 17; TEMP 36.6; O2SAT 95
--- NOTE | 2018-09-14 22:43 | RAD_ITS ---
STUDY: X-RAY CHEST REASON FOR EXAM: Male, 77 years old. Bleeding after chest tube site TECHNIQUE: Portable chest COMPARISON: Same day FINDINGS: There is a right-sided chest tube directed to the right suprahilar region unchanged in position. There is a small right sided less than 1 cm right apical pneumothorax smaller in size and compared to prior exam. There is significant generalized osteopenia. There is mild developing right lower lobe infiltrate and/or subsegmental atelectasis.. Normal size heart. Normal mediastinum and ashanti. Normal visualized pulmonary arteries. Normal visualized aortic arch and descending thoracic aorta. There is generalized osteopenia. There is stable lower thoracic fracture with prior kyphoplasty. There is stimulator wires with projecting over the thoracic spine likely within the central canal. There is no demonstrated abnormality of the visualized soft tissue structures of the upper abdomen. RAD/Chest 1 View (Portable) IMPRESSION: Decrease in size of right-sided pneumothorax, no change in right chest tube position. If there is clinical concern for intrathoracic or malpositioned chest tube CT could be performed to evaluate position Mild developing right lower lobe infiltrate and/or subsegmental atelectasis Electronically Signed: Juan Pablo Mendoza, at 23:20 EDT Tel , Service support ,
[2018-09-15] MEDS: 0.9% Normal Saline 1,000 ML 100 ML IV (00:24)
[2018-09-15 04:00] VITALS: BP 172/79; PULSE 65; RESP 16; TEMP 37.7; O2SAT 96
[2018-09-15 06:27] LABS: Anion Gap 10 (5-15); BUN 30 mg/dL (7-18); BUN/Creat Ratio 48.4 RATIO (10-20); Calcium,Total 7.9 mg/dL (8.5-10.1); Chloride 109 mmol/L (98-107); Creatinine, Serum 0.62 mg/dL (0.70-1.30); EST Glomerular Filtration Rate 133 mL/min (>60); Est Glom Filt Rate - Afr Amer 161 mL/min (>60); Estimated Creatinine Clearance 47.78 ml/min; Glucose 78 mg/dL (74-106); Potassium 3.7 mmol/L (3.5-5.1); Sodium Level 140 mmol/L (136-145)
[2018-09-15 06:29] LABS: Absolute Lymphocyte Count 1.84 X10^3/ul (0.83-4.51); Absolute Neutrophil Count 6.8 X10^3/uL (2.0-7.7); Basophil# 0.04 X10^3/uL; Basophil% 0.4 % (0-1); Eosinophil# 0.22 X10^3/uL; Eosinophils% 2.2 % (0-5); Hematocrit 34.6 % (40-54); Hemoglobin 11.9 g/dl (13.0-16.5); Lymphocyte # 1.84 X10^3/ul (4.0); Lymphocyte % 19.1 % (19-41); Mean Corp Hgb Conc 34.4 g/gl (32-36); Mean Corpuscular Hgb 30.8 pg (27.0-32.0); Mean Corpuscular Volume 89.6 fL (80-94); Mean Platelet Vol. 8.6 fl (6.2-12.0); Monocyte# 0.77 X10^3/uL; Neutrophil # 6.78 X10^3/uL (2.7-7.7); Neutrophil % 69.6 % (47-70); POSITIVE COUNT NO; POSITIVE DIFFERENTIAL NO; POSITIVE MORPHOLOGY NO; Platelet Count 198 K/mm3 (150-450); RBC Distribution Width CV 12.8 % (11.6-14.6); RBC Distribution Width SD 41.3 fl (35.1-43.9); Red Blood Count 3.86 M/mm3 (4.6-6.2); White Blood Count 8.9 K/mm3 (4.4-11.0)
[2018-09-15 07:23] VITALS: O2SAT 93
[2018-09-15] MEDS: Ketorolac 30 MG/ML Syringe IV ×2 (07:30→15:32)
[2018-09-15] MEDS: 0.9% NaCl Peripheral Flush Adult/Peds IV ×3 (07:30→15:32)
[2018-09-15 07:48] VITALS: BP 152/71; PULSE 57; RESP 20; TEMP 36.9; O2SAT 93
--- NOTE | 2018-09-15 08:25 | PCM.PN.SRG ---
Patient Problems: Active and Suspected Problems (Last Reviewed 09/13/18 @ 11:19 by Sharif Gurrola MD) Pneumothorax (Acute) Cystitis (Acute) Fall (Acute) Subjective: Patient evaluated resting comfortably in bed. Patient opened his eyes this morning. Per nursing staff, no increased labored breathing. CXR yesterday showed increased pneumothorax. Patient was reconnected to wall section. Patient had some drainage from the Chest tube last night. Repeat CXR was obtained which demonstrated decrease in right-sided pneumothorax and chest tube in place. No further drainage was noted. Patient was also evaluated by speech therapy yesterday. Patient's is considering wanting a PEG tube placed for nutrition. - Physical Exam General: Cooperative, Lethargic Lungs: Normal air movement, Wheezes - bilaterally Musculoskeletal: Cachexia Vital Signs Temp Pulse Resp BP Pulse Ox 98.4 F 57 L 20 H 152/71 H 93 09/15/18 07:48 09/15/18 07:48 09/15/18 07:48 09/15/18 07:48 09/15/18 07:48 Oxygen Flow Rate (L/min) [3] 15 Oxygen Flow Rate (L/min) [2] 15 Oxygen Flow Rate (L/min) [1 ( 15 Initial Baseline)] Oxygen Flow Rate (L/min) 15 Oxygen Delivery Method [3] Non-Rebreather Oxygen Delivery Method [2] Non-Rebreather Oxygen Delivery Method [1 ( Non-Rebreather Initial Baseline)] Oxygen Delivery Method Room Air Weight: 120 lb 5.958 oz Body Mass Index (BMI) 18.3 Finger Stick Blood Glucose 81 Intake and Output for Last 24 Hours 09/13/18 09/14/18 09/15/18 23:59 23:59 23:59 Intake Total 200 / 200 1761 / 1761 754 / 754 Output Total 5 / 5 Balance 195 / 195 1761 / 1761 754 / 754 Microbiology Past 72 Hours 09/12/18 18:30 Urine Culture - Final Urine, Catheterized Enterococcus faecalis Laboratory Tests Past 24 Hrs 09/14/18 09/14/18 09/15/18 09:20 09:20 05:50 WBC 10.6 8.9 RBC 3.91 L 3.86 L Hgb 12.1 L 11.9 L Hct 34.8 L 34.6 L MCV 89.0 89.6 MCH 30.9 30.8 MCHC 34.8 34.4 RDW 13.2 12.8 RDW Differential 42.3 41.3 Plt Count 221 198 MPV 8.7 8.6 Immature Gran % (Auto) 0.300 Neut % (Auto) 69.6 Lymph % (Auto) 19.1 [place] % (Auto) 8.0 Eos % (Auto) 2.2 Baso % (Auto) 0.4 Absolute Neuts (auto) 6.8 Absolute Lymphs (auto) 1.84 Total Counted Not Reportable Sodium 140 Potassium 3.7 Chloride 107 Carbon Dioxide 26.0 Anion Gap 7 BUN 31 H Creatinine 0.72 Estim Creat Clear Calc 47.78 Est GFR (MDRD) Af Amer 135 Est GFR (MDRD) Non-Af 112 BUN/Creatinine Ratio 42.8 H Glucose 76 Calcium 7.9 L 09/15/18 05:50 WBC RBC Hgb Hct MCV MCH MCHC RDW RDW Differential Plt Count MPV Immature Gran % (Auto) Neut % (Auto) Lymph % (Auto) [place] % (Auto) Eos % (Auto) Baso % (Auto) Absolute Neuts (auto) Absolute Lymphs (auto) Total Counted Sodium 140 Potassium 3.7 Chloride 109 H Carbon Dioxide 21.0 Anion Gap 10 BUN 30 H Creatinine 0.62 L Estim Creat Clear Calc 47.78 Est GFR (MDRD) Af Amer 161 Est GFR (MDRD) Non-Af 133 BUN/Creatinine Ratio 48.4 H Glucose 78 Calcium 7.9 L Medical Necessity - Tobacco Use Smoking Status: Never smoker Assessment/Plan All Active Problems (Last Reviewed 09/13/18 @ 11:19 by Sharif Gurrola MD) Pneumothorax (Acute) Cystitis (Acute) Fall (Acute) Anemia due to blood loss, acute (Acute) Dehydration (Acute) FTT (failure to thrive) in adult (Acute) Lower GI bleed (Acute) Diverticulitis large intestine (Acute) I am following this patient in conjunction with Dr. Gurrola. Right pneumothorax Will place chest tube to water seal around noon and repeat a CXR around 1600. We will wait to hear if patient will be proceeding with a PEG tube placement Dr. Gurrola will independently evaluate this patient We will continue to monitor this patient Code Visit Inpatient E&M: 43429 [facility] Hosp L1
--- NOTE | 2018-09-15 09:30 | PCM.PN.HOSP ---
Patient Problems: Active and Suspected Problems (Last Reviewed 09/13/18 @ 11:19 by Sharif Gurrola MD) Pneumothorax (Acute) Cystitis (Acute) Fall (Acute) Subjective: Patient seen and examined. Patient is a bit more alert today and able to answer some questions. He denied having pain anywhere and denied any fever or chills, any chest pain or cough, any diarrhea vomiting. Review of systems otherwise negative. Labs and vitals reviewed. Speech therapy evaluated him yesterday made him n.p.o. due to risk of aspiration. Vitals/I&O's: Vital Signs Temp Pulse Resp BP Pulse Ox 98.4 F 57 L 20 H 152/71 H 93 09/15/18 07:48 09/15/18 07:48 09/15/18 07:48 09/15/18 07:48 09/15/18 07:48 Oxygen Flow Rate (L/min) [3] 15 Oxygen Flow Rate (L/min) [2] 15 Oxygen Flow Rate (L/min) [1 ( 15 Initial Baseline)] Oxygen Flow Rate (L/min) 15 Oxygen Delivery Method [3] Non-Rebreather Oxygen Delivery Method [2] Non-Rebreather Oxygen Delivery Method [1 ( Non-Rebreather Initial Baseline)] Oxygen Delivery Method Room Air Weight: 120 lb 5.958 oz Body Mass Index (BMI) 18.3 Finger Stick Blood Glucose 81 Intake and Output for Last 24 Hours 09/13/18 09/14/18 09/15/18 23:59 23:59 23:59 Intake Total 200 / 200 1761 / 1761 754 / 754 Output Total 5 / 5 Balance 195 / 195 1761 / 1761 754 / 754 General: much more alert today, though still lethargic HEENT: Atraumatic, PERRLA, EOMI, Normocephalic Oral: Dry Mucosa Neck: Supple, No JVD, Negative Carotid Bruits Lungs: - - minimally decreased breath sounds bibasally, no wheezes or crackles. Cardiovascular: Regular rate, Regular Rhythm, Normal S1, Normal S2, No murmurs Abdomen: Bowel Sounds Present, Soft, Non Tender, Non-Distended, No Hepato-splenomegaly Extremities: No clubbing, No cyanosis, No edema, Capillary Refill Less than 3 Seconds Skin: No rashes, No breakdown Musculoskeletal: No Tenderness to Palpation of Joints or Extremities Neurological: - - oatient more alert today, moves all extremities spontaneously,. Psych/Mental Status: - -lethargic Microbiology Past 72 Hours 09/12/18 18:30 Urine, Catheterized Urine Culture - Final Enterococcus faecalis Laboratory Results 09/14/18 09:20: WBC 10.6, RBC 3.91 L, Hgb 12.1 L, Hct 34.8 L, MCV 89.0, MCH 30.9, MCHC 34.8, RDW 13.2, RDW Differential 42.3, Plt Count 221, MPV 8.7 09/14/18 09:20: Sodium 140, Potassium 3.7, Chloride 107, Carbon Dioxide 26.0, Anion Gap 7, BUN 31 H, Creatinine 0.72, Estim Creat Clear Calc 47.78, Est GFR (MDRD) Af Amer 135, Est GFR (MDRD) Non-Af 112, BUN/Creatinine Ratio 42.8 H, Glucose 76, Calcium 7.9 L 09/15/18 05:50: WBC 8.9, RBC 3.86 L, Hgb 11.9 L, Hct 34.6 L, MCV 89.6, MCH 30.8, MCHC 34.4, RDW 12.8, RDW Differential 41.3, Plt Count 198, MPV 8.6, Immature Gran % (Auto) 0.300, Neut % (Auto) 69.6, Lymph % (Auto) 19.1, [place] % (Auto) 8.0, Eos % (Auto) 2.2, Baso % (Auto) 0.4, Absolute Neuts (auto) 6.8, Absolute Lymphs (auto) 1.84, Total Counted Not Reportable 09/15/18 05:50: Sodium 140, Potassium 3.7, Chloride 109 H, Carbon Dioxide 21.0, Anion Gap 10, BUN 30 H, Creatinine 0.62 L, Estim Creat Clear Calc 47.78, Est GFR (MDRD) Af Amer 161, Est GFR (MDRD) Non-Af 133, BUN/Creatinine Ratio 48.4 H, Glucose 78, Calcium 7.9 L Current Medications Dextrose (D50w Syringe) 0 gm IV X1 PRN; Protocol PRN Reason: Hypoglycemia Enoxaparin Sodium (Lovenox) 40 mg SC DAILY@1000 SAIRA Last Admin: 09/14/18 11:05 Dose: 40 mg Glucagon () 1 mg IM .X1 PRN PRN Reason: Hypoglycemia Sodium Chloride () 250 mls @ 15 mls/hr IV .[id number] PRN PRN Reason: SALINE FLUSH Ciprofloxacin (Cipro) 400 mg in 200 mls @ 200 mls/hr IV Q12 SAIRA Last Admin: 09/14/18 21:51 Dose: 200 mls/hr Sodium Chloride () 1,000 mls @ 100 mls/hr IV .Q10H SAIRA Stop: 09/15/18 10:23 Last Admin: 09/15/18 00:24 Dose: 100 mls/hr Famotidine 20 mg/ Sodium (Chloride) 10 mls @ 300 mls/hr IV Q24 SAIRA Ketorolac Tromethamine (Toradol) 30 mg IV Q8H PRN PRN PRN Reason: PAIN Stop: 09/19/18 11:43 Last Admin: 09/15/18 07:30 Dose: 30 mg Ondansetron HCl (Zofran) 4 mg IV Q8H PRN PRN PRN Reason: NAUSEA/VOMITING Sodium Chloride () 5 - 15 ml IV UD PRN PRN Reason: SALINE FLUSH Last Admin: 09/15/18 07:30 Dose: 10 ml Medical Necessity - Tobacco Use Smoking Status: Never smoker Assessment/Plan All Active Problems (Last Reviewed 09/13/18 @ 11:19 by Sharif Gurrola MD) Pneumothorax (Acute) Cystitis (Acute) Fall (Acute) Anemia due to blood loss, acute (Acute) Dehydration (Acute) FTT (failure to thrive) in adult (Acute) Lower GI bleed (Acute) Diverticulitis large intestine (Acute) 1. Acute metabolic encephalopathy due to UTI and dehydration patient now NPO o/a of risk of aspiration fever has resolved patient a bit more alert today blood cultures pending urine cultured Enterococcus; patient on IV ciprofloxacin based on sensitivities brain CT showed no acute intracranial pathology speech therapy to re-evaluate again today to see if he can take his meds, as he is more alert continue hydration with IVF 2.Right sided pneumothorax: CXR showed enlargement of pneumothorax yesterday, so chest tube was placed back on suction. general surgery on board; has chest tube in place. 3. Debility due to mechanical falls: fell at home, resulting in pneumothorax. PT/OT on board. on ibuprofen and tylenol for pain. 4. Parkinsons disease: on carbidopa, rivastigmine, rasagiline and Requip. 5. Protein calorie malnutrition: BMI is only ~ 18. Nutrition on board. 6. BPH: on flomax DVT prophylaxis: lovenox Code status: DNRCCA Code Visit Inpatient E&M: 27189 Subs Hosp L3
--- NOTE | 2018-09-15 09:34 | PN_ITS ---
Patient Problems: Active and Suspected Problems (Last Reviewed 09/13/18 @ 11:19 by Sharif Gurrola MD) Pneumothorax (Acute) Cystitis (Acute) Fall (Acute) Subjective: Patient seen and examined. Patient is a bit more alert today and able to answer some questions. He denied having pain anywhere and denied any fever or chills, any chest pain or cough, any diarrhea vomiting. Review of systems otherwise negative. Labs and vitals reviewed. Speech therapy evaluated him yesterday made him n.p.o. due to risk of aspiration. Vitals/I&O's: Vital Signs Temp Pulse Resp BP Pulse Ox 98.4 F 57 L 20 H 152/71 H 93 09/15/18 07:48 09/15/18 07:48 09/15/18 07:48 09/15/18 07:48 09/15/18 07:48 Oxygen Flow Rate (L/min) [3] 15 Oxygen Flow Rate (L/min) [2] 15 Oxygen Flow Rate (L/min) [1 ( 15 Initial Baseline)] Oxygen Flow Rate (L/min) 15 Oxygen Delivery Method [3] Non-Rebreather Oxygen Delivery Method [2] Non-Rebreather Oxygen Delivery Method [1 ( Non-Rebreather Initial Baseline)] Oxygen Delivery Method Room Air Weight: 120 lb 5.958 oz Body Mass Index (BMI) 18.3 Finger Stick Blood Glucose 81 Intake and Output for Last 24 Hours 09/13/18 09/14/18 09/15/18 23:59 23:59 23:59 Intake Total 200 / 200 1761 / 1761 754 / 754 Output Total 5 / 5 Balance 195 / 195 1761 / 1761 754 / 754 General: much more alert today, though still lethargic HEENT: Atraumatic, PERRLA, EOMI, Normocephalic Oral: Dry Mucosa Neck: Supple, No JVD, Negative Carotid Bruits Lungs: - - minimally decreased breath sounds bibasally, no wheezes or crackles. Cardiovascular: Regular rate, Regular Rhythm, Normal S1, Normal S2, No murmurs Abdomen: Bowel Sounds Present, Soft, Non Tender, Non-Distended, No Hepato- splenomegaly Extremities: No clubbing, No cyanosis, No edema, Capillary Refill Less than 3 Seconds Skin: No rashes, No breakdown Musculoskeletal: No Tenderness to Palpation of Joints or Extremities Neurological: - - oatient more alert today, moves all extremities spontaneously,. Psych/Mental Status: - -lethargic Microbiology Past 72 Hours 09/12/18 18:30 Urine, Catheterized Urine Culture - Final Enterococcus faecalis Laboratory Results 09/14/18 09:20: WBC 10.6, RBC 3.91 L, Hgb 12.1 L, Hct 34.8 L, MCV 89.0, MCH 30.9, MCHC 34.8, RDW 13.2, RDW Differential 42.3, Plt Count 221, MPV 8.7 09/14/18 09:20: Sodium 140, Potassium 3.7, Chloride 107, Carbon Dioxide 26.0, Anion Gap 7, BUN 31 H, Creatinine 0.72, Estim Creat Clear Calc 47.78, Est GFR (MDRD) Af Amer 135, Est GFR (MDRD) Non-Af 112, BUN/Creatinine Ratio 42.8 H, Glucose 76, Calcium 7.9 L 09/15/18 05:50: WBC 8.9, RBC 3.86 L, Hgb 11.9 L, Hct 34.6 L, MCV 89.6, MCH 30.8, MCHC 34.4, RDW 12.8, RDW Differential 41.3, Plt Count 198, MPV 8.6, Immature Gran % (Auto) 0.300, Neut % (Auto) 69.6, Lymph % (Auto) 19.1, [place] % (Auto) 8.0, Eos % (Auto) 2.2, Baso % (Auto) 0.4, Absolute Neuts (auto) 6.8, Absolute Lymphs (auto) 1.84, Total Counted Not Reportable 09/15/18 05:50: Sodium 140, Potassium 3.7, Chloride 109 H, Carbon Dioxide 21.0, Anion Gap 10, BUN 30 H, Creatinine 0.62 L, Estim Creat Clear Calc 47.78, Est GFR (MDRD) Af Amer 161, Est GFR (MDRD) Non-Af 133, BUN/Creatinine Ratio 48.4 H, Glucose 78, Calcium 7.9 L Current Medications Dextrose (D50w Syringe) 0 gm IV X1 PRN; Protocol PRN Reason: Hypoglycemia Enoxaparin Sodium (Lovenox) 40 mg SC DAILY@1000 SAIRA Last Admin: 09/14/18 11:05 Dose: 40 mg Glucagon () 1 mg IM .X1 PRN PRN Reason: Hypoglycemia Sodium Chloride () 250 mls @ 15 mls/hr IV .[id number] PRN PRN Reason: SALINE FLUSH Ciprofloxacin (Cipro) 400 mg in 200 mls @ 200 mls/hr IV Q12 SAIRA Last Admin: 09/14/18 21:51 Dose: 200 mls/hr Sodium Chloride () 1,000 mls @ 100 mls/hr IV .Q10H SAIRA Stop: 09/15/18 10:23 Last Admin: 09/15/18 00:24 Dose: 100 mls/hr Famotidine 20 mg/ Sodium (Chloride) 10 mls @ 300 mls/hr IV Q24 SAIRA Ketorolac Tromethamine (Toradol) 30 mg IV Q8H PRN PRN PRN Reason: PAIN Stop: 09/19/18 11:43 Last Admin: 09/15/18 07:30 Dose: 30 mg Ondansetron HCl (Zofran) 4 mg IV Q8H PRN PRN PRN Reason: NAUSEA/VOMITING Sodium Chloride () 5 - 15 ml IV UD PRN PRN Reason: SALINE FLUSH Last Admin: 09/15/18 07:30 Dose: 10 ml Medical Necessity - Tobacco Use Smoking Status: Never smoker Assessment/Plan All Active Problems (Last Reviewed 09/13/18 @ 11:19 by Sharif Gurrola MD) Pneumothorax (Acute) Cystitis (Acute) Fall (Acute) Anemia due to blood loss, acute (Acute) Dehydration (Acute) FTT (failure to thrive) in adult (Acute) Lower GI bleed (Acute) Diverticulitis large intestine (Acute) 1. Acute metabolic encephalopathy due to UTI and dehydration * patient now NPO o/a of risk of aspiration * fever has resolved * patient a bit more alert today * blood cultures pending * urine cultured Enterococcus; patient on IV ciprofloxacin based on sensitivities * brain CT showed no acute intracranial pathology * speech therapy to re-evaluate again today to see if he can take his meds, as he is more alert * continue hydration with IVF * 2.Right sided pneumothorax: * CXR showed enlargement of pneumothorax yesterday, so chest tube was placed back on suction. * general surgery on board; has chest tube in place. 3. Debility due to mechanical falls: * fell at home, resulting in pneumothorax. * PT/OT on board. on ibuprofen and tylenol for pain. * 4. Parkinsons disease: on carbidopa, rivastigmine, rasagiline and Requip. 5. Protein calorie malnutrition: BMI is only ~ 18. Nutrition on board. 6. BPH: on flomax DVT prophylaxis: lovenox Code status: DNRCCA Code Visit Inpatient E&M: 56063 Subs Hosp L3
[2018-09-15] MEDS: Ciprofloxacin 400 MG/200 ML BAG 200 MG IV (10:53)
[2018-09-15] MEDS: Carbidopa/Levodopa 25/100 Tablet PO ×2 (10:53→17:54)
[2018-09-15] MEDS: Enoxaparin 40 MG/0.4 ML Syringe SC (10:56)
[2018-09-15] MEDS: Pramipexole Di-HCl 0.5 MG Tablet PO ×2 (11:15→18:06)
[2018-09-15] MEDS: Rivastigmine Tartrate 1.5 MG Capsule 3 MG PO (11:18)
--- NOTE | 2018-09-15 12:53 | NURSING ---
chest tube placed to water seal at 1230. Will await f/u cxr scheduled for 1600. continuous spo2 continues to ear- probe moved from right ear to left to prevent pressure injury.
[2018-09-15 13:49] VITALS: BP 132/69; PULSE 59; RESP 18; TEMP 37.2; O2SAT 94
--- NOTE | 2018-09-15 15:09 | CASEMGMT ---
Social Work Note PT/OT evaluations are available. SW placed a call to Marika in TCU, left message, informing her that pre-cert can be submitted. Plan: TCU pending pre-cert Zandra SWAIN, FOUR SLIDE MACHINE OPERATOR
--- NOTE | 2018-09-15 16:00 | RAD_ITS ---
We are attempting to reach an attending provider to discuss findings. An addendum with communication details will be sent when the communication is complete. STUDY: X-RAY CHEST REASON FOR EXAM: Male, 77 years old. Follow-up pneumothorax TECHNIQUE: AP portable COMPARISON: September 14, 2018 10:43 PM FINDINGS: There is a small right pleural effusion and right lower lobe consolidation. There is also diffusely opaque left lung base suggesting small effusion and basilar consolidation. There is a right-sided pneumothorax approximating 20% volume. Chest tube is seen in the right pleural space. Heart is enlarged.. Normal mediastinum and [place]. Normal visualized pulmonary arteries. Normal visualized aortic arch and descending thoracic aorta. Dorsal spine demonstrates scoliosis and degenerative change. There is old compression fractures status post kyphoplasty. Normal visualized ribs, clavicles, and shoulders. Dorsal stimulator noted within the dorsal spinal canal There is no demonstrated abnormality of the visualized soft tissue structures of the upper abdomen. Pneumothorax has increased in size since prior exam. There is increasing right pleural effusion and basilar consolidation. RAD/Chest 1 View (Portable) IMPRESSION: Increasing right hydropneumothorax with right lower lobe consolidation.. Probable small left effusion and left lower lobe atelectasis Electronically Signed: Chucho Bartholomew MD at 17:13 EDT , Service support ,
--- NOTE | 2018-09-15 17:42 | NURSING ---
pt was reconnected to wall suction at 1756 following call from radiologist regarding critical finding. Dr. Gurrola called to ensure same had been completed and requested different sized chest tubes to be in pt's room for the AM.
[2018-09-15 20:45] VITALS: BP 145/81; PULSE 55; RESP 20; TEMP 37; O2SAT 96
[2018-09-16] VITALS (8 sets, daily range): BP systolic 141–192; BP diastolic 66–84; PULSE 46–69; RESP 15–20; TEMP 36.6–37.1; O2SAT 94–98
[2018-09-16] MEDS: 0.9% Normal Saline 1,000 ML 100 ML IV ×3 (03:00→23:44)
[2018-09-16] MEDS: 0.9% NaCl Peripheral Flush Adult/Peds IV ×4 (03:05→16:03)
[2018-09-16 06:10] LABS: Anion Gap 10 (5-15); BUN 23 mg/dL (7-18); BUN/Creat Ratio 36.2 RATIO (10-20); Chloride 107 mmol/L (98-107); Creatinine, Serum 0.64 mg/dL (0.70-1.30); EST Glomerular Filtration Rate 130 mL/min (>60); Est Glom Filt Rate - Afr Amer 157 mL/min (>60); Estimated Creatinine Clearance 47.78 ml/min; Glucose 74 mg/dL (74-106); Potassium 3.6 mmol/L (3.5-5.1); Sodium Level 140 mmol/L (136-145)
[2018-09-16 06:12] LABS: Absolute Lymphocyte Count 1.98 X10^3/ul (0.83-4.51); Absolute Neutrophil Count 6.6 X10^3/uL (2.0-7.7); Basophil# 0.04 X10^3/uL; Basophil% 0.4 % (0-1); Eosinophil# 0.33 X10^3/uL; Eosinophils% 3.4 % (0-5); Hematocrit 33.6 % (40-54); Hemoglobin 11.9 g/dl (13.0-16.5); Lymphocyte # 1.98 X10^3/ul (4.0); Lymphocyte % 20.6 % (19-41); Mean Corp Hgb Conc 35.4 g/gl (32-36); Mean Corpuscular Hgb 30.7 pg (27.0-32.0); Mean Corpuscular Volume 86.6 fL (80-94); Monocyte# 0.65 X10^3/uL; Monocyte% 6.8 % (0-10); Neutrophil # 6.58 X10^3/uL (2.7-7.7); Neutrophil % 68.7 % (47-70); Platelet Count 232 K/mm3 (150-450); RBC Distribution Width CV 12.3 % (11.6-14.6); RBC Distribution Width SD 38.1 fl (35.1-43.9); Red Blood Count 3.88 M/mm3 (4.6-6.2); White Blood Count 9.6 K/mm3 (4.4-11.0)
[2018-09-16 06:16] LABS: POSITIVE COUNT NO; POSITIVE DIFFERENTIAL NO; POSITIVE MORPHOLOGY NO
[2018-09-16] MEDS: Ketorolac 30 MG/ML Syringe IV ×2 (09:45→16:02)
[2018-09-16] MEDS: Enoxaparin 40 MG/0.4 ML Syringe SC (09:46)
--- NOTE | 2018-09-16 09:47 | PCM.CONS.PUL ---
Reason for Consult Date of Consultation: 09/16/18 Reason for Consultation: Aspiration pneumonia History of Present Illness: The patient is a 77-year-old male, with a history as outlined below, who presented to the emergency department on September 12 with complaints of thoracic rib pain and shortness of breath. The patient had sustained a mechanical fall at home. The patient has a known history of advanced stage Parkinson's disease, initially diagnosed in 1994, along with restrictive ventilatory mechanics. I previously evaluated him in the pulmonary medicine clinic in May 2018. At that time, my suspicion was that the shortness of breath was related to his restrictive ventilatory mechanics, which developed over the course of time and was related to progression in his underlying Parkinson's disease, coupled with his exaggerated spinal kyphosis. In addition, I was also extremely concerned about the possibility that the patient was aspirating on a chronic basis. I subsequently referred him to speech therapy who performed a modified barium swallow and did confirm the presence of chronic, silent aspiration. On presentation to the emergency department, the patient was noted to be afebrile and hemodynamically stable. He was initially maintaining appropriate oxygen saturations on room air. Laboratory evaluation revealed a mildly elevated white blood cell count. Chemistry profile was largely unremarkable. Due to the presence of right hip and back pain, a CT abdomen/pelvis was obtained, which identified a large right-sided anterior pneumothorax. A Pneumovax catheter was subsequently placed in the emergency department. General surgery was consulted to assist with management of the patient's chest tube. The patient's hospital course has been complicated by worsening respiratory status along with progressive airspace disease, associated pleural effusion and persistent pneumothorax. While the patient was previously being maintained on ciprofloxacin, his antibiotics were broadened to include Zosyn over concerns for aspiration pneumonia. The patient remains afebrile and is without evidence of a leukocytosis. Past Medical History Past Medical History (Chronic Problems): Chronic Problems (Last Reviewed 09/13/18 @ 11:19 by Sharif Gurrola MD) SOB (shortness of breath) (Chronic) Benign prostate hyperplasia (Chronic) Parkinson disease (Chronic) Chronic back pain (Chronic) Urinary incontinence (Chronic) Depression (Chronic) Medical History: Medical History (Last Reviewed 09/13/18 @ 11:19 by Sharif Gurrola MD) SOB (shortness of breath) (Chronic) R06.02 Anemia due to blood loss, acute (Acute) D62 Dehydration (Acute) E86.0 Benign prostate hyperplasia (Chronic) Parkinson disease (Chronic) G20 Chronic back pain (Chronic) M54.9, G89.29 Urinary incontinence (Chronic) R32 Depression (Chronic) F32.9 FTT (failure to thrive) in adult (Acute) Lower GI bleed (Acute) K92.2 Diverticulitis large intestine (Acute) K57.32 Dyspnea R06.00 Hypercholesterolemia E78.00 Impacted cerumen of right ear H61.21 Spinal cord stimulator status Z96.89 Allergies albuterol [From Proventil HFA] Adverse Reaction (Mild, Verified 05/21/18 10:42) jittery meperidine [From Demerol] Adverse Reaction (Mild, Verified 05/21/18 10:42) Vomiting morphine Adverse Reaction (Verified 05/21/18 10:42) Other Narcotics Allergy (Uncoded 05/21/18 10:42) Other Halluciantes Home Medications: Ambulatory Orders Medication Instructions Recorded Pantoprazole Sodium [Protonix] 40 mg PO 0600 07/11/13 Rasagiline Mesylate [Azilect] 1 mg PO DAILY 07/11/13 Venlafaxine XR [Effexor Xr] 75 mg PO DAILY 07/11/13 carbidopa 25 mg-levodopa 100 mg 1 tab PO TIDCM tab 05/15/18 tablet ibuprofen 800 mg tablet 800 mg PO TID PRN PRN 05/15/18 Glycopyrrolate [Robinul] 1 mg PO TIDCM 09/12/18 Multivitamin with Minerals 1 each PO DAILY 09/12/18 [Multiple Vitamin] Rivastigmine Tartrate 6 mg PO BIDCM 09/12/18 [Rivastigmine] Ropinirole HCl [Requip] 1 mg PO TIDCM 09/12/18 Surgical History: Surgical History (Last Reviewed 09/13/18 @ 11:19 by Sharif Gurrola MD) Cataract extraction status of left eye Z98.42 H/O elbow surgery Z98.890 Right H/O shoulder surgery Z98.890 1990 History of back surgery Z98.890 04/2009 History of hip surgery Z98.890 due to right sided fracture, 12/2009 Surgical History: - - Back surgery, elbow replacement bilaterally and rotator cuff repair. He has also had an ORIF of a hip fracture. He also has an electric stimulator in his back and he has had battery changes. Psychiatric History: Depression Lives: Spouse/ Significant Other Smoking Status: Never smoker - *Family History Maternal Family History: Family History (Last Reviewed 09/12/18 @ 20:40 by Jluis Cason MD) Mother Bacterial pneumonia Father Lung cancer History Items: No pertinent history Paternal Family History: Family History (Last Reviewed 09/12/18 @ 20:40 by Jluis Cason MD) Mother Bacterial pneumonia Father Lung cancer History Items: No pertinent history Review of Systems Unable to obtain accurate/complete ROS d/t: Due to patient's somnolence Patient Problems: Active and Suspected Problems (Last Reviewed 09/13/18 @ 11:19 by Sharif Gurrola MD) Pneumothorax (Acute) Cystitis (Acute) Fall (Acute) Objective: The patient's most recent lab work, culture data and imaging studies have all been personally reviewed. Urine culture dated September 12 was positive for Enterococcus faecalis. - Physical Exam General: - - Frail and cachectic in appearance. The patient is quite somnolent and will open eyes transiently to verbal stimulation. HEENT: Atraumatic, PERRLA, Normocephalic Oral: Dry Mucosa Neck: Supple, No Nodes, Trachea Midline Lungs: No rhonchi, No wheeze, Diminished, Rales Cardiovascular: Normal S1, Normal S2, No murmurs, Bradycardic Abdomen: Soft, Non Tender, Hypoactive Bowel Sounds Extremities: No clubbing, No cyanosis, No edema Skin: No breakdown Musculoskeletal: Cachexia, Muscle Wasting Lymphatic: No Cervical, Supraclavicular, or Inguinal Adenopathy Neurological: - - No focal deficits. Lethargic. Psych/Mental Status: Flat Affect Vital Signs Temp Pulse Resp BP Pulse Ox 97.9 F 48 L 16 184/79 H 95 09/16/18 08:27 09/16/18 08:35 09/16/18 08:27 09/16/18 08:27 09/16/18 08:27 Oxygen Flow Rate (L/min) [3] 15 Oxygen Flow Rate (L/min) [2] 15 Oxygen Flow Rate (L/min) [1 ( 15 Initial Baseline)] Oxygen Flow Rate (L/min) 15 Oxygen Delivery Method [3] Non-Rebreather Oxygen Delivery Method [2] Non-Rebreather Oxygen Delivery Method [1 ( Non-Rebreather Initial Baseline)] Oxygen Delivery Method Room Air Weight: 120 lb 5.958 oz Body Mass Index (BMI) 18.3 Finger Stick Blood Glucose 81 Intake and Output for Last 24 Hours 09/14/18 09/15/18 09/16/18 23:59 23:59 23:59 Intake Total 1760 225 / 225 Balance 1760 225 / 225 Microbiology Past 72 Hours 09/14/18 09:24 Blood Culture - Preliminary Blood Culture (Wb) - Left Hand No growth in 48 hours. 09/14/18 09:20 Blood Culture - Preliminary Blood Culture (Wb) - Anticubital Left No growth in 48 hours. 09/12/18 18:30 Urine Culture - Final Urine, Catheterized Enterococcus faecalis Laboratory Tests Past 24 Hrs 09/16/18 09/16/18 05:42 05:42 WBC 9.6 RBC 3.88 L Hgb 11.9 L Hct 33.6 L MCV 86.6 MCH 30.7 MCHC 35.4 RDW 12.3 RDW Differential 38.1 Plt Count 232 MPV 9.0 Immature Gran % (Auto) 0.100 Neut % (Auto) 68.7 Lymph % (Auto) 20.6 [place] % (Auto) 6.8 Eos % (Auto) 3.4 Baso % (Auto) 0.4 Absolute Neuts (auto) 6.6 Absolute Lymphs (auto) 1.98 Total Counted Not Reportable Sodium 140 Potassium 3.6 Chloride 107 Carbon Dioxide 23.0 Anion Gap 10 BUN 23 H Creatinine 0.64 L Estim Creat Clear Calc 47.78 Est GFR (MDRD) Af Amer 157 Est GFR (MDRD) Non-Af 130 BUN/Creatinine Ratio 36.2 H Glucose 74 Calcium 8.0 L Clinical Impression(s) from Imaging Studies Abdomen/Pelvis CT 09/12/18 17:59 IMPRESSION: 1. Large right pneumothorax partially visualized. 2. No abdominal ascites or pneumoperitoneum. 3. Moderate fecal retention. 4. Similar degenerative and operative changes of the lumbar spine. Lower thoracic and upper lumbar vertebral body compression fractures are similar since 2017. 5. Atherosclerosis. 6. Nonobstructing renal calculi. Electronically Signed: Flavio Jacome MD at 19:23 EDT , Service support , Brain CT 09/12/18 18:24 IMPRESSION: 1. No acute intracranial hemorrhage or mass effect. 2. Central parenchymal volume loss. White matter changes that are nonspecific but most commonly associated with chronic small vessel ischemic disease. Electronically Signed: Flavio Jacome MD at 19:18 EDT , Service support , Chest X-Ray 09/12/18 19:00 IMPRESSION: Stable cardiomegaly, hyperexpansion and hiatal hernia. No acute finding. Electronically Signed: Gaudencio Hearn MD at 19:21 EDT , Service support , ADDENDUM: 09/12/182000 Chest X-Ray 09/12/18 19:40 IMPRESSION: Placement of right thoracostomy tube with decrease in right pneumothorax. Electronically Signed: Gaudencio Hearn MD at 19:54 EDT , Service support , Chest X-Ray 09/13/18 05:50 IMPRESSION: small less than 1 cm residual right-sided pneumothorax which is smaller in size when compared to prior exam Stable right-sided chest tube Stimulator wires overlying the mid thoracic spine Prior compression fractures thoracic spine with prior kyphoplasty in thoracic dextroscoliosis unchanged Improved aeration with improving bibasilar subsegmental atelectasis Electronically Signed: Juan Pablo Mendoza, at 7:25 EDT Tel , Service support , Chest X-Ray 09/14/18 05:55 IMPRESSION: Minimal residual right apical pneumothorax. There has been no change. Electronically Signed: Corby Figueroa, at 13:05 EDT , Service support , Brain CT 09/14/18 09:04 IMPRESSION: Chronic involutional changes of the brain. Stable examination. Electronically Signed: Corby Armstrongcurtis, at 11:19 EDT , Service support , Chest X-Ray 09/14/18 12:00 IMPRESSION: Increase in size of the right apical pneumothorax. Mild left basilar atelectasis. Electronically Signed: Corby Meyertiny, at 11:17 EDT , Service support , Chest X-Ray 09/14/18 22:43 IMPRESSION: Decrease in size of right-sided pneumothorax, no change in right chest tube position. If there is clinical concern for intrathoracic or malpositioned chest tube CT could be performed to evaluate position Mild developing right lower lobe infiltrate and/or subsegmental atelectasis Electronically Signed: Juan Pablo Mendoza, at 23:20 EDT Tel , Service support , Chest X-Ray 09/15/18 16:00 IMPRESSION: Increasing right hydropneumothorax with right lower lobe consolidation.. Probable small left effusion and left lower lobe atelectasis Electronically Signed: Chucho Bartholomew MD at 17:13 EDT , Service support , ADDENDUM: 09/15/18 6725 IMPRESSION: Increasing right hydropneumothorax with right lower lobe consolidation.. Probable small left effusion and left lower lobe atelectasis N.B. : The above information has been verbally conveyed by Chucho Bartholomew MD to Judy Sherman RN, on 09/15/2018 17:28:17 (ET). Electronically Signed: Chucho Bartholomew MD at 17:13 EDT , Service support , Assessment/Plan All Active Problems (Last Reviewed 09/13/18 @ 11:19 by Sharif Gurrola MD) Pneumothorax (Acute) Cystitis (Acute) Fall (Acute) Anemia due to blood loss, acute (Acute) Dehydration (Acute) FTT (failure to thrive) in adult (Acute) Lower GI bleed (Acute) Diverticulitis large intestine (Acute) RECOMMENDATIONS: 1. Agree with broad-spectrum antimicrobials as ordered. 2. Aggressive bronchopulmonary hygiene: Orders have been placed for incentive spirometer, PEP, and IPV 3. Aspiration precautions. 4. While a Dobbhoff feeding tube is being considered, this would not address the patient's long-term nutritional needs. 5. Palliative care referral 6. Obtain arterial blood gas. 7. Avoid CPAP/BiPAP for now, given issues with pneumothorax. IMPRESSIONS: 1. Right-sided pneumothorax following fall at home The patient currently has a small bore chest tube in situ, which was placed in the emergency department. Upon removal from wall suction yesterday, the patient's pneumothorax enlarged. He is currently being maintained on wall suction and does not appear to have an air leak in the atrium at the bedside this morning. His chest x-ray was personally reviewed and I did not see evidence of residual pneumothorax. General surgery is currently following to assist in the management of the patient's chest tube. Therefore, will defer management to them. 2. Concerns for aspiration pneumonia Given the patient's history of chronic, silent aspiration and the radiographic findings noted on his most recent chest x-ray, clinical concern would be for aspiration pneumonia. Agree with broad-spectrum antibiotics as ordered. If the patient does produce any sputum, please send for culture. Continue aggressive bronchopulmonary hygiene. 3. Concerns for sleep apnea I did personally witness the patient at the bedside this morning with multiple hypercapnic/apneic events. Given the patient's Parkinson's disease, it is certainly possible that he has underlying sleep apnea. Nevertheless, in the setting of his current pneumothorax, would recommend avoiding positive pressure ventilatory support at this time. I would avoid sedating medications as well. 4. 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 I did refer him to speech therapy after that office evaluation. The patient was confirmed to be aspirating on a chronic basis. It was also recommended that he establish a relationship with palliative care. However, the patient's reported that they were unable to do so. Therefore, I did discuss the case with social work and case management and asked them to facilitate a referral being placed to palliative care. This note was generated with [employer] dictation software. It may contain incorrect words, spelling, and punctuation that were not noted in checking the note before signing. Code Visit Inpatient E&M: 41439 Init Hosp L3
--- NOTE | 2018-09-16 09:51 | PCM.PN.HOSP ---
Patient Problems: Active and Suspected Problems (Last Reviewed 09/13/18 @ 11:19 by Sharif Gurrola MD) Pneumothorax (Acute) Cystitis (Acute) Fall (Acute) Subjective: Patient seen and examined. Patient remains very frail and lethargic. Unable to do review of systems as patient was very lethargic and can answer questions. had her close friend read by his bedside. says she felt that he had deteriorated some more was yesterday was able to sit up in a chair for about 30 minutes. She is concerned that he has not had anything to eat since that today. counseled that per x-ray done yesterday evening, right-sided pneumothorax had increased in size and general surgery plans to change chest tube to a larger size today. He is also developed a right-sided pleural effusion and pneumonia which is likely due to aspiration. Speech therapy on board. Labs and vitals reviewed. Vitals/I&O's: Vital Signs Temp Pulse Resp BP Pulse Ox 97.9 F 48 L 16 184/79 H 95 09/16/18 08:27 09/16/18 08:35 09/16/18 08:27 09/16/18 08:27 09/16/18 08:27 Oxygen Flow Rate (L/min) [3] 15 Oxygen Flow Rate (L/min) [2] 15 Oxygen Flow Rate (L/min) [1 ( 15 Initial Baseline)] Oxygen Flow Rate (L/min) 15 Oxygen Delivery Method [3] Non-Rebreather Oxygen Delivery Method [2] Non-Rebreather Oxygen Delivery Method [1 ( Non-Rebreather Initial Baseline)] Oxygen Delivery Method Room Air Weight: 120 lb 5.958 oz Body Mass Index (BMI) 18.3 Finger Stick Blood Glucose 81 Intake and Output for Last 24 Hours 09/14/18 09/15/18 09/16/18 23:59 23:59 23:59 Intake Total 17605 / Balance 1760 / General: very lethargic HEENT: Atraumatic, PERRLA, EOMI, Normocephalic Oral: Dry Mucosa Neck: Supple, No JVD, Negative Carotid Bruits Lungs: - - significantly decreased breath sounds in right lung bruner; also decreased breath sounds in left lower lung bruner, no wheezes or crackles. on room air. Right sided chest tube in place Cardiovascular: Regular rate, Regular Rhythm, Normal S1, Normal S2, No murmurs Abdomen: Bowel Sounds Present, Soft, Non Tender, Non-Distended, No Hepato-splenomegaly Extremities: No clubbing, No cyanosis, No edema, Capillary Refill Less than 3 Seconds Skin: No rashes, No breakdown Musculoskeletal: No Tenderness to Palpation of Joints or Extremities Neurological: - - very lethargic; still moves limbs spontaneously, but very weakly Psych/Mental Status: - -lethargic Microbiology Past 72 Hours 09/14/18 09:24 Blood Culture (Wb) - Left Hand Blood Culture - Preliminary No growth in 48 hours. 09/14/18 09:20 Blood Culture (Wb) - Anticubital Left Blood Culture - Preliminary No growth in 48 hours. 09/12/18 18:30 Urine, Catheterized Urine Culture - Final Enterococcus faecalis Laboratory Results 09/16/18 05:42: WBC 9.6, RBC 3.88 L, Hgb 11.9 L, Hct 33.6 L, MCV 86.6, MCH 30.7, MCHC 35.4, RDW 12.3, RDW Differential 38.1, Plt Count 232, MPV 9.0, Immature Gran % (Auto) 0.100, Neut % (Auto) 68.7, Lymph % (Auto) 20.6, Bacon % (Auto) 6.8, Eos % (Auto) 3.4, Baso % (Auto) 0.4, Absolute Neuts (auto) 6.6, Absolute Lymphs (auto) 1.98, Total Counted Not Reportable 09/16/18 05:42: Sodium 140, Potassium 3.6, Chloride 107, Carbon Dioxide 23.0, Anion Gap 10, BUN 23 H, Creatinine 0.64 L, Estim Creat Clear Calc 47.78, Est GFR (MDRD) Af Amer 157, Est GFR (MDRD) Non-Af 130, BUN/Creatinine Ratio 36.2 H, Glucose 74, Calcium 8.0 L Diagnostic Data Abdomen/Pelvis CT 09/12/18 17:59 IMPRESSION: 1. Large right pneumothorax partially visualized. 2. No abdominal ascites or pneumoperitoneum. 3. Moderate fecal retention. 4. Similar degenerative and operative changes of the lumbar spine. Lower thoracic and upper lumbar vertebral body compression fractures are similar since 2017. 5. Atherosclerosis. 6. Nonobstructing renal calculi. Electronically Signed: Flavio Jacome MD at 19:23 EDT , Service support , Brain CT 09/14/18 09:04 IMPRESSION: Chronic involutional changes of the brain. Stable examination. Electronically Signed: Corby Figueroa, at 11:19 EDT , Service support , Chest X-Ray 09/15/18 16:00 IMPRESSION: Increasing right hydropneumothorax with right lower lobe consolidation.. Probable small left effusion and left lower lobe atelectasis Electronically Signed: Chucho Bartholomew MD at 17:13 EDT , Service support , ADDENDUM: 09/15/18 1735 IMPRESSION: Increasing right hydropneumothorax with right lower lobe consolidation.. Probable small left effusion and left lower lobe atelectasis N.B. : The above information has been verbally conveyed by Chucho Bartholomew MD to Judy Sherman RN, on 09/15/2018 17:28:17 (ET). Electronically Signed: Chucho Bartholomew MD at 17:13 EDT , Service support , Current Medications Acetaminophen (Tylenol) 500 mg PO Q6H PRN PRN PRN Reason: PAIN Carbidopa/Levodopa (Sinemet) 1 tablet PO TIDAC [facility] Last Admin: 09/16/18 08:34 Dose: Not Given Dextrose (D50w Syringe) 0 gm IV X1 PRN; Protocol PRN Reason: Hypoglycemia Enoxaparin Sodium (Lovenox) 40 mg SC DAILY@1000 [facility] Last Admin: 09/16/18 09:46 Dose: 40 mg Glucagon () 1 mg IM .X1 PRN PRN Reason: Hypoglycemia Glycopyrrolate (Robinul) 1 mg PO TID [facility] Last Admin: 09/16/18 03:34 Dose: Not Given Sodium Chloride () 250 mls @ 15 mls/hr IV .[id number] PRN PRN Reason: SALINE FLUSH Famotidine 20 mg/ Sodium (Chloride) 10 mls @ 300 mls/hr IV Q24 [facility] Last Admin: 09/16/18 09:45 Dose: 300 mls/hr Piperacillin Sod/Tazobactam (Sod 3.375 gm/ Sodium Chloride) 50 mls @ 12.5 mls/hr IV Q8 [facility] Last Admin: 09/16/18 05:21 Dose: 12.5 mls/hr Sodium Chloride () 1,000 mls @ 100 mls/hr IV .Q10H [facility] Last Admin: 09/16/18 03:00 Dose: 100 mls/hr Ketorolac Tromethamine (Toradol) 30 mg IV Q8H PRN PRN PRN Reason: PAIN Stop: 09/19/18 11:43 Last Admin: 09/16/18 09:45 Dose: 30 mg Melatonin (Melatonin) 3 mg PO QHS PRN PRN Reason: INSOMNIA [facility]) [facility] Last Admin: 09/16/18 08:34 Dose: Not Given Nutritional Formula (Lactose Free) (Ensure Enlive) 120 ml PO TID [facility] Last Admin: 09/16/18 03:34 Dose: Not Given Ondansetron HCl (Zofran) 4 mg IV Q8H PRN PRN PRN Reason: NAUSEA/VOMITING Pantoprazole Sodium (Protonix) 40 mg PO DAILY [facility] Last Admin: 09/16/18 09:46 Dose: Not Given Pramipexole Dihydrochloride (Mirapex) 0.5 mg PO TIDCM [facility] Last Admin: 09/16/18 08:34 Dose: Not Given Rivastigmine Tartrate (Exelon) 3 mg PO BIDCM [facility] Last Admin: 09/16/18 08:34 Dose: Not Given Sodium Chloride () 5 - 15 ml IV UD PRN PRN Reason: SALINE FLUSH Last Admin: 09/16/18 09:45 Dose: 10 ml Venlafaxine HCl (Effexor Xr) 75 mg PO DAILY [facility] Last Admin: 09/16/18 09:46 Dose: Not Given Medical Necessity - Tobacco Use Smoking Status: Never smoker Assessment/Plan All Active Problems (Last Reviewed 09/13/18 @ 11:19 by Sharif Gurrola MD) Pneumothorax (Acute) Cystitis (Acute) Fall (Acute) Anemia due to blood loss, acute (Acute) Dehydration (Acute) FTT (failure to thrive) in adult (Acute) Lower GI bleed (Acute) Diverticulitis large intestine (Acute) 1. Acute metabolic encephalopathy due to UTI and aspiration pneumonia patient now NPO o/a of risk of aspiration fever has resolved; he is however still lethargic blood cultuers showed no growth after 48 hours CXSR done yesterday showed enlargement of right sided pneumothorax; he also has right sided pleural effusion and right lower lobe consolidation, as well as smlal left lower lobe effusion and basilar consolidation urine cultured Enterococcus; antibiotics broadened to IV zosyn yesternight o/a of pneumonia speech therapy on board to have Dobhoff NG tube passed for medication and feeding today continue hydration with IVF. consult pulmonology o.a of aspiration pneumonia and pleural effusion 2.Right sided pneumothorax: CXR showed enlargement of pneumothorax again yesterday; general surgery to insert larger chest tube today. 3. Aspiration pneumonia: as under 1 4. UTI: as under 1. 5. Debility due to mechanical falls: fell at home, resulting in pneumothorax. PT/OT on board. on ibuprofen and tylenol for pain. 6. Parkinsons disease: on carbidopa, rivastigmine, rasagiline and Requip. 7. Protein calorie malnutrition: BMI is only ~ 18. Nutrition on board. 8. BPH: on flomax DVT prophylaxis: lovenox Code status: DNRCCA Code Visit Inpatient E&M: 95519 Subs Hosp L3
--- NOTE | 2018-09-16 09:54 | RAD_ITS ---
STUDY: X-RAY CHEST REASON FOR EXAM: Male, 77 years old. Pneumothorax. TECHNIQUE: Single AP portable view of the chest. COMPARISON: Comparison is made with prior study dated September 15, 2018. FINDINGS: A right-sided small caliber chest tube is seen with the tip in the medial aspect of the right upper lobe. No significant right pneumothorax is seen. Persistent atelectasis and/or infiltrates at the lung bases worse on the right side with blunting of both costophrenic angles. There is mild cardiac enlargement. Normal mediastinum and ashanti. Normal visualized pulmonary arteries. There is atherosclerotic tortuosity of the aortic arch and descending thoracic aorta. Prior vertebroplasty of the thoracic vertebra. Electrodes from an pain stimulator device are seen. Normal visualized ribs, clavicles, and shoulders. There is no demonstrated abnormality of the visualized soft tissue structures of the upper abdomen. RAD/Chest 1 View (Portable) IMPRESSION: No evidence of pneumothorax at this time. Persistent atelectasis and/or infiltrates at the lung bases worse on the right side with blunting of both costophrenic angles. Electronically Signed: Corby Figueroa, at 10:27 EDT , Service support ,
--- NOTE | 2018-09-16 09:55 | CON.PCM_ITS ---
Reason for Consult Date of Consultation: 09/16/18 Reason for Consultation: Aspiration pneumonia History of Present Illness: The patient is a 77-year-old male, with a history as outlined below, who presented to the emergency department on September 12 with complaints of thoracic rib pain and shortness of breath. The patient had sustained a mechanical fall at home. The patient has a known history of advanced stage Parkinson's disease, initially diagnosed in 1994, along with restrictive ventilatory mechanics. I previously evaluated him in the pulmonary medicine clinic in May 2018. At that time, my suspicion was that the shortness of breath was related to his restrictive ventilatory mechanics, which developed over the course of time and was related to progression in his underlying Parkinson's disease, coupled with his exaggerated spinal kyphosis. In addition, I was also extremely concerned about the possibility that the patient was aspirating on a chronic basis. I subsequently referred him to speech therapy who performed a modified barium swallow and did confirm the presence of chronic, silent aspiration. On presentation to the emergency department, the patient was noted to be afebrile and hemodynamically stable. He was initially maintaining appropriate oxygen saturations on room air. Laboratory evaluation revealed a mildly elevated white blood cell count. Chemistry profile was largely unremarkable. Due to the presence of right hip and back pain, a CT abdomen/pelvis was obtained, which identified a large right-sided anterior pneumothorax. A Pneumovax catheter was subsequently placed in the emergency department. General surgery was consulted to assist with management of the patient's chest tube. The patient's hospital course has been complicated by worsening respiratory status along with progressive airspace disease, associated pleural effusion and persistent pneumothorax. While the patient was previously being maintained on ciprofloxacin, his antibiotics were broadened to include Zosyn over concerns for aspiration pneumonia. The patient remains afebrile and is without evidence of a leukocytosis. Past Medical History Past Medical History (Chronic Problems): Chronic Problems (Last Reviewed 09/13/18 @ 11:19 by Sharif Gurrola MD) SOB (shortness of breath) (Chronic) Benign prostate hyperplasia (Chronic) Parkinson disease (Chronic) Chronic back pain (Chronic) Urinary incontinence (Chronic) Depression (Chronic) Medical History: Medical History (Last Reviewed 09/13/18 @ 11:19 by Sharif Gurrola MD) SOB (shortness of breath) (Chronic) R06.02 Anemia due to blood loss, acute (Acute) D62 Dehydration (Acute) E86.0 Benign prostate hyperplasia (Chronic) Parkinson disease (Chronic) G20 Chronic back pain (Chronic) M54.9, G89.29 Urinary incontinence (Chronic) R32 Depression (Chronic) F32.9 FTT (failure to thrive) in adult (Acute) Lower GI bleed (Acute) K92.2 Diverticulitis large intestine (Acute) K57.32 Dyspnea R06.00 Hypercholesterolemia E78.00 Impacted cerumen of right ear H61.21 Spinal cord stimulator status Z96.89 Allergies albuterol [From Proventil HFA] Adverse Reaction (Mild, Verified 05/21/18 10:42) jittery meperidine [From Demerol] Adverse Reaction (Mild, Verified 05/21/18 10:42) Vomiting morphine Adverse Reaction (Verified 05/21/18 10:42) Other Narcotics Allergy (Uncoded 05/21/18 10:42) Other Halluciantes Home Medications: Ambulatory Orders Medication Instructions Recorded Pantoprazole Sodium [Protonix] 40 mg PO 0600 07/11/13 Rasagiline Mesylate [Azilect] 1 mg PO DAILY 07/11/13 Venlafaxine XR [Effexor Xr] 75 mg PO DAILY 07/11/13 carbidopa 25 mg-levodopa 100 mg 1 tab PO TIDCM tab 05/15/18 tablet ibuprofen 800 mg tablet 800 mg PO TID PRN PRN 05/15/18 Glycopyrrolate [Robinul] 1 mg PO TIDCM 09/12/18 Multivitamin with Minerals 1 each PO DAILY 09/12/18 [Multiple Vitamin] Rivastigmine Tartrate 6 mg PO BIDCM 09/12/18 [Rivastigmine] Ropinirole HCl [Requip] 1 mg PO TIDCM 09/12/18 Surgical History: Surgical History (Last Reviewed 09/13/18 @ 11:19 by Sharif Gurrola MD) Cataract extraction status of left eye Z98.42 H/O elbow surgery Z98.890 Right H/O shoulder surgery Z98.890 1990 History of back surgery Z98.890 04/2009 History of hip surgery Z98.890 due to right sided fracture, 12/2009 Surgical History: - - Back surgery, elbow replacement bilaterally and rotator cuff repair. He has also had an ORIF of a hip fracture. He also has an electric stimulator in his back and he has had battery changes. Psychiatric History: Depression Lives: Spouse/ Significant Other Smoking Status: Never smoker - *Family History Maternal Family History: Family History (Last Reviewed 09/12/18 @ 20:40 by Jluis Cason MD) Mother Bacterial pneumonia Father Lung cancer History Items: No pertinent history Paternal Family History: Family History (Last Reviewed 09/12/18 @ 20:40 by Jluis Cason MD) Mother Bacterial pneumonia Father Lung cancer History Items: No pertinent history Review of Systems Unable to obtain accurate/complete ROS d/t: Due to patient's somnolence Patient Problems: Active and Suspected Problems (Last Reviewed 09/13/18 @ 11:19 by Sharif Gurrola MD) Pneumothorax (Acute) Cystitis (Acute) Fall (Acute) Objective: The patient's most recent lab work, culture data and imaging studies have all been personally reviewed. Urine culture dated September 12 was positive for Enterococcus faecalis. - Physical Exam General: - - Frail and cachectic in appearance. The patient is quite somnolent and will open eyes transiently to verbal stimulation. HEENT: Atraumatic, PERRLA, Normocephalic Oral: Dry Mucosa Neck: Supple, No Nodes, Trachea Midline Lungs: No rhonchi, No wheeze, Diminished, Rales Cardiovascular: Normal S1, Normal S2, No murmurs, Bradycardic Abdomen: Soft, Non Tender, Hypoactive Bowel Sounds Extremities: No clubbing, No cyanosis, No edema Skin: No breakdown Musculoskeletal: Cachexia, Muscle Wasting Lymphatic: No Cervical, Supraclavicular, or Inguinal Adenopathy Neurological: - - No focal deficits. Lethargic. Psych/Mental Status: Flat Affect Vital Signs Temp Pulse Resp BP Pulse Ox 97.9 F 48 L 16 184/79 H 95 09/16/18 08:27 09/16/18 08:35 09/16/18 08:27 09/16/18 08:27 09/16/18 08:27 Oxygen Flow Rate (L/min) [3] 15 Oxygen Flow Rate (L/min) [2] 15 Oxygen Flow Rate (L/min) [1 ( 15 Initial Baseline)] Oxygen Flow Rate (L/min) 15 Oxygen Delivery Method [3] Non-Rebreather Oxygen Delivery Method [2] Non-Rebreather Oxygen Delivery Method [1 ( Non-Rebreather Initial Baseline)] Oxygen Delivery Method Room Air Weight: 120 lb 5.958 oz Body Mass Index (BMI) 18.3 Finger Stick Blood Glucose 81 Intake and Output for Last 24 Hours 09/14/18 09/15/18 09/16/18 23:59 23:59 23:59 Intake Total 1760 225 / 225 Balance 1760 225 / 225 Microbiology Past 72 Hours 09/14/18 09:24 Blood Culture - Preliminary Blood Culture (Wb) - Left Hand No growth in 48 hours. 09/14/18 09:20 Blood Culture - Preliminary Blood Culture (Wb) - Anticubital Left No growth in 48 hours. 09/12/18 18:30 Urine Culture - Final Urine, Catheterized Enterococcus faecalis Laboratory Tests Past 24 Hrs 09/16/18 09/16/18 05:42 05:42 WBC 9.6 RBC 3.88 L Hgb 11.9 L Hct 33.6 L MCV 86.6 MCH 30.7 MCHC 35.4 RDW 12.3 RDW Differential 38.1 Plt Count 232 MPV 9.0 Immature Gran % (Auto) 0.100 Neut % (Auto) 68.7 Lymph % (Auto) 20.6 Dyer % (Auto) 6.8 Eos % (Auto) 3.4 Baso % (Auto) 0.4 Absolute Neuts (auto) 6.6 Absolute Lymphs (auto) 1.98 Total Counted Not Reportable Sodium 140 Potassium 3.6 Chloride 107 Carbon Dioxide 23.0 Anion Gap 10 BUN 23 H Creatinine 0.64 L Estim Creat Clear Calc 47.78 Est GFR (MDRD) Af Amer 157 Est GFR (MDRD) Non-Af 130 BUN/Creatinine Ratio 36.2 H Glucose 74 Calcium 8.0 L Clinical Impression(s) from Imaging Studies Abdomen/Pelvis CT 09/12/18 17:59 IMPRESSION: 1. Large right pneumothorax partially visualized. 2. No abdominal ascites or pneumoperitoneum. 3. Moderate fecal retention. 4. Similar degenerative and operative changes of the lumbar spine. Lower thoracic and upper lumbar vertebral body compression fractures are similar since 2017. 5. Atherosclerosis. 6. Nonobstructing renal calculi. Electronically Signed: Flavio Jacome MD at 19:23 EDT , Service support , Brain CT 09/12/18 18:24 IMPRESSION: 1. No acute intracranial hemorrhage or mass effect. 2. Central parenchymal volume loss. White matter changes that are nonspecific but most commonly associated with chronic small vessel ischemic disease. Electronically Signed: Flavio Jacome MD at 19:18 EDT , Service support , Chest X-Ray 09/12/18 19:00 IMPRESSION: Stable cardiomegaly, hyperexpansion and hiatal hernia. No acute finding. Electronically Signed: Gaudencio Hearn MD at 19:21 EDT , Service support , ADDENDUM: 09/12/182000 Chest X-Ray 09/12/18 19:40 IMPRESSION: Placement of right thoracostomy tube with decrease in right pneumothorax. Electronically Signed: Gaudencio Hearn MD at 19:54 EDT , Service support , Chest X-Ray 09/13/18 05:50 IMPRESSION: small less than 1 cm residual right-sided pneumothorax which is smaller in size when compared to prior exam Stable right-sided chest tube Stimulator wires overlying the mid thoracic spine Prior compression fractures thoracic spine with prior kyphoplasty in thoracic dextroscoliosis unchanged Improved aeration with improving bibasilar subsegmental atelectasis Electronically Signed: Juan Pablo Mendoza, at 7:25 EDT Tel , Service support , Chest X-Ray 09/14/18 05:55 IMPRESSION: Minimal residual right apical pneumothorax. There has been no change. Electronically Signed: Corby Figueroa, at 13:05 EDT , Service support , Brain CT 09/14/18 09:04 IMPRESSION: Chronic involutional changes of the brain. Stable examination. Electronically Signed: Corby Armstrongcurtis, at 11:19 EDT , Service support , Chest X-Ray 09/14/18 12:00 IMPRESSION: Increase in size of the right apical pneumothorax. Mild left basilar atelectasis. Electronically Signed: Corby Meyertiny, at 11:17 EDT , Service support , Chest X-Ray 09/14/18 22:43 IMPRESSION: Decrease in size of right-sided pneumothorax, no change in right chest tube position. If there is clinical concern for intrathoracic or malpositioned chest tube CT could be performed to evaluate position Mild developing right lower lobe infiltrate and/or subsegmental atelectasis Electronically Signed: Juan Pablo Mendoza, at 23:20 EDT Tel , Service support , Chest X-Ray 09/15/18 16:00 IMPRESSION: Increasing right hydropneumothorax with right lower lobe consolidation.. Probable small left effusion and left lower lobe atelectasis Electronically Signed: Chucho Bartholomew MD at 17:13 EDT , Service support , ADDENDUM: 09/15/18 5315 IMPRESSION: Increasing right hydropneumothorax with right lower lobe consolidation.. Probable small left effusion and left lower lobe atelectasis N.B. : The above information has been verbally conveyed by Chucho Bartholomew MD to Judy Sherman RN, on 09/15/2018 17:28:17 (ET). Electronically Signed: Chucho Bartholomew MD at 17:13 EDT , Service support , Assessment/Plan All Active Problems (Last Reviewed 09/13/18 @ 11:19 by Sharif Gurrola MD) Pneumothorax (Acute) Cystitis (Acute) Fall (Acute) Anemia due to blood loss, acute (Acute) Dehydration (Acute) FTT (failure to thrive) in adult (Acute) Lower GI bleed (Acute) Diverticulitis large intestine (Acute) RECOMMENDATIONS: 1. Agree with broad-spectrum antimicrobials as ordered. 2. Aggressive bronchopulmonary hygiene: Orders have been placed for incentive spirometer, PEP, and IPV 3. Aspiration precautions. 4. While a Dobbhoff feeding tube is being considered, this would not address the patient's long-term nutritional needs. 5. Palliative care referral 6. Obtain arterial blood gas. 7. Avoid CPAP/BiPAP for now, given issues with pneumothorax. IMPRESSIONS: 1. Right-sided pneumothorax following fall at home The patient currently has a small bore chest tube in situ, which was placed in the emergency department. Upon removal from wall suction yesterday, the patient's pneumothorax enlarged. He is currently being maintained on wall suction and does not appear to have an air leak in the atrium at the bedside this morning. His chest x-ray was personally reviewed and I did not see evidence of residual pneumothorax. General surgery is currently following to assist in the management of the patient's chest tube. Therefore, will defer management to them. 2. Concerns for aspiration pneumonia Given the patient's history of chronic, silent aspiration and the radiographic findings noted on his most recent chest x-ray, clinical concern would be for aspiration pneumonia. Agree with broad-spectrum antibiotics as ordered. If the patient does produce any sputum, please send for culture. Continue aggressive bronchopulmonary hygiene. 3. Concerns for sleep apnea I did personally witness the patient at the bedside this morning with multiple hypercapnic/apneic events. Given the patient's Parkinson's disease, it is certainly possible that he has underlying sleep apnea. Nevertheless, in the setting of his current pneumothorax, would recommend avoiding positive pressure ventilatory support at this time. I would avoid sedating medications as well. 4. 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 I did refer him to speech therapy after that office evaluation. The patient was confirmed to be aspirating on a chronic basis. It was also recommended that he establish a relationship with palliative care. However, the patient's reported that they were unable to do so. Therefore, I did discuss the case with social work and case management and asked them to facilitate a referral being placed to palliative care. This note was generated with [employer] dictation software. It may contain incorrect words, spelling, and punctuation that were not noted in checking the note before signing. Code Visit Inpatient E&M: 08463 Init Hosp L3
--- NOTE | 2018-09-16 09:58 | PN_ITS ---
Patient Problems: Active and Suspected Problems (Last Reviewed 09/13/18 @ 11:19 by Sharif Gurrola MD) Pneumothorax (Acute) Cystitis (Acute) Fall (Acute) Subjective: Patient seen and examined. Patient remains very frail and lethargic. Unable to do review of systems as patient was very lethargic and can answer questions. had her close friend read by his bedside. says she felt that he had deteriorated some more was yesterday was able to sit up in a chair for about 30 minutes. She is concerned that he has not had anything to eat since that today. counseled that per x-ray done yesterday evening, right-sided pneumothorax had increased in size and general surgery plans to change chest tube to a larger size today. He is also developed a right-sided pleural effusion and pneumonia which is likely due to aspiration. Speech therapy on board. Labs and vitals reviewed. Vitals/I&O's: Vital Signs Temp Pulse Resp BP Pulse Ox 97.9 F 48 L 16 184/79 H 95 09/16/18 08:27 09/16/18 08:35 09/16/18 08:27 09/16/18 08:27 09/16/18 08:27 Oxygen Flow Rate (L/min) [3] 15 Oxygen Flow Rate (L/min) [2] 15 Oxygen Flow Rate (L/min) [1 ( 15 Initial Baseline)] Oxygen Flow Rate (L/min) 15 Oxygen Delivery Method [3] Non-Rebreather Oxygen Delivery Method [2] Non-Rebreather Oxygen Delivery Method [1 ( Non-Rebreather Initial Baseline)] Oxygen Delivery Method Room Air Weight: 120 lb 5.958 oz Body Mass Index (BMI) 18.3 Finger Stick Blood Glucose 81 Intake and Output for Last 24 Hours 09/14/18 09/15/18 09/16/18 23:59 23:59 23:59 Intake Total 17605 / Balance 1760 / General: very lethargic HEENT: Atraumatic, PERRLA, EOMI, Normocephalic Oral: Dry Mucosa Neck: Supple, No JVD, Negative Carotid Bruits Lungs: - - significantly decreased breath sounds in right lung bruner; also decreased breath sounds in left lower lung bruner, no wheezes or crackles. on room air. Right sided chest tube in place Cardiovascular: Regular rate, Regular Rhythm, Normal S1, Normal S2, No murmurs Abdomen: Bowel Sounds Present, Soft, Non Tender, Non-Distended, No Hepato- splenomegaly Extremities: No clubbing, No cyanosis, No edema, Capillary Refill Less than 3 Seconds Skin: No rashes, No breakdown Musculoskeletal: No Tenderness to Palpation of Joints or Extremities Neurological: - - very lethargic; still moves limbs spontaneously, but very weakly Psych/Mental Status: - -lethargic Microbiology Past 72 Hours 09/14/18 09:24 Blood Culture (Wb) - Left Hand Blood Culture - Preliminary No growth in 48 hours. 09/14/18 09:20 Blood Culture (Wb) - Anticubital Left Blood Culture - Preliminary No growth in 48 hours. 09/12/18 18:30 Urine, Catheterized Urine Culture - Final Enterococcus faecalis Laboratory Results 09/16/18 05:42: WBC 9.6, RBC 3.88 L, Hgb 11.9 L, Hct 33.6 L, MCV 86.6, MCH 30.7, MCHC 35.4, RDW 12.3, RDW Differential 38.1, Plt Count 232, MPV 9.0, Immature Gran % (Auto) 0.100, Neut % (Auto) 68.7, Lymph % (Auto) 20.6, [place] % (Auto) 6.8, Eos % (Auto) 3.4, Baso % (Auto) 0.4, Absolute Neuts (auto) 6.6, Absolute Lymphs (auto) 1.98, Total Counted Not Reportable 09/16/18 05:42: Sodium 140, Potassium 3.6, Chloride 107, Carbon Dioxide 23.0, Anion Gap 10, BUN 23 H, Creatinine 0.64 L, Estim Creat Clear Calc 47.78, Est GFR (MDRD) Af Amer 157, Est GFR (MDRD) Non-Af 130, BUN/Creatinine Ratio 36.2 H, Glu cose 74, Calcium 8.0 L Diagnostic Data Abdomen/Pelvis CT 09/12/18 17:59 IMPRESSION: 1. Large right pneumothorax partially visualized. 2. No abdominal ascites or pneumoperitoneum. 3. Moderate fecal retention. 4. Similar degenerative and operative changes of the lumbar spine. Lower thoracic and upper lumbar vertebral body compression fractures are similar since 2017. 5. Atherosclerosis. 6. Nonobstructing renal calculi. Electronically Signed: Flavio Jacome MD at 19:23 EDT , Service support , Brain CT 09/14/18 09:04 IMPRESSION: Chronic involutional changes of the brain. Stable examination. Electronically Signed: Corby Figueroa, at 11:19 EDT , Service support , Chest X-Ray 09/15/18 16:00 IMPRESSION: Increasing right hydropneumothorax with right lower lobe consolidation.. Probable small left effusion and left lower lobe atelectasis Electronically Signed: Chucho Bartholomew MD at 17:13 EDT , Service support , ADDENDUM: 09/15/18 1735 IMPRESSION: Increasing right hydropneumothorax with right lower lobe consolidation.. Probable small left effusion and left lower lobe atelectasis N.B. : The above information has been verbally conveyed by Chucho Bartholomew MD to Judy Sherman RN, on 09/15/2018 17:28:17 (ET). Electronically Signed: Chucho Bartholomew MD at 17:13 EDT , Service support , Current Medications Acetaminophen (Tylenol) 500 mg PO Q6H PRN PRN PRN Reason: PAIN Carbidopa/Levodopa (Sinemet) 1 tablet PO TIDAC [facility] Last Admin: 09/16/18 08:34 Dose: Not Given Dextrose (D50w Syringe) 0 gm IV X1 PRN; Protocol PRN Reason: Hypoglycemia Enoxaparin Sodium (Lovenox) 40 mg SC DAILY@1000 [facility] Last Admin: 09/16/18 09:46 Dose: 40 mg Glucagon () 1 mg IM .X1 PRN PRN Reason: Hypoglycemia Glycopyrrolate (Robinul) 1 mg PO TID [facility] Last Admin: 09/16/18 03:34 Dose: Not Given Sodium Chloride () 250 mls @ 15 mls/hr IV .L60P10G PRN PRN Reason: SALINE FLUSH Famotidine 20 mg/ Sodium (Chloride) 10 mls @ 300 mls/hr IV Q24 [facility] Last Admin: 09/16/18 09:45 Dose: 300 mls/hr Piperacillin Sod/Tazobactam (Sod 3.375 gm/ Sodium Chloride) 50 mls @ 12.5 mls/hr IV Q8 [facility] Last Admin: 09/16/18 05:21 Dose: 12.5 mls/hr Sodium Chloride () 1,000 mls @ 100 mls/hr IV .Q10H [facility] Last Admin: 09/16/18 03:00 Dose: 100 mls/hr Ketorolac Tromethamine (Toradol) 30 mg IV Q8H PRN PRN PRN Reason: PAIN Stop: 09/19/18 11:43 Last Admin: 09/16/18 09:45 Dose: 30 mg Melatonin (Melatonin) 3 mg PO QHS PRN PRN Reason: INSOMNIA [facility]ivit[facility] ([facility]itamin) [facility] Last Admin: 09/16/18 08:34 Dose: Not Given Nutritional Formula (Lactose Free) (Ensure Enlive) 120 ml PO TID [facility] Last Admin: 09/16/18 03:34 Dose: Not Given Ondansetron HCl (Zofran) 4 mg IV Q8H PRN PRN PRN Reason: NAUSEA/VOMITING Pantoprazole Sodium (Protonix) 40 mg PO DAILY [facility] Last Admin: 09/16/18 09:46 Dose: Not Given Pramipexole Dihydrochloride (Mirapex) 0.5 mg PO TIDCM [facility] Last Admin: 09/16/18 08:34 Dose: Not Given Rivastigmine Tartrate (Exelon) 3 mg PO BIDCM [facility] Last Admin: 09/16/18 08:34 Dose: Not Given Sodium Chloride () 5 - 15 ml IV UD PRN PRN Reason: SALINE FLUSH Last Admin: 09/16/18 09:45 Dose: 10 ml Venlafaxine HCl (Effexor Xr) 75 mg PO DAILY [facility] Last Admin: 09/16/18 09:46 Dose: Not Given Medical Necessity - Tobacco Use Smoking Status: Never smoker Assessment/Plan All Active Problems (Last Reviewed 09/13/18 @ 11:19 by Sharif Gurrola MD) Pneumothorax (Acute) Cystitis (Acute) Fall (Acute) Anemia due to blood loss, acute (Acute) Dehydration (Acute) FTT (failure to thrive) in adult (Acute) Lower GI bleed (Acute) Diverticulitis large intestine (Acute) 1. Acute metabolic encephalopathy due to UTI and aspiration pneumonia * patient now NPO o/a of risk of aspiration * fever has resolved; he is however still lethargic * blood cultuers showed no growth after 48 hours * CXSR done yesterday showed enlargement of right sided pneumothorax; he also has right sided pleural effusion and right lower lobe consolidation, as well as smlal left lower lobe effusion and basilar consolidation * urine cultured Enterococcus; * antibiotics broadened to IV zosyn yesternight o/a of pneumonia * speech therapy on board * to have Dobhoff NG tube passed for medication and feeding today * continue hydration with IVF. * consult pulmonology o.a of aspiration pneumonia and pleural effusion * 2.Right sided pneumothorax: * CXR showed enlargement of pneumothorax again yesterday; general surgery to insert larger chest tube today. 3. Aspiration pneumonia: as under 1 4. UTI: as under 1. 5. Debility due to mechanical falls: * fell at home, resulting in pneumothorax. * PT/OT on board. on ibuprofen and tylenol for pain. * 6. Parkinsons disease: on carbidopa, rivastigmine, rasagiline and Requip. 7. Protein calorie malnutrition: BMI is only ~ 18. Nutrition on board. 8. BPH: on flomax DVT prophylaxis: lovenox Code status: DNRCCA Code Visit Inpatient E&M: 79101 Subs Hosp L3
[2018-09-16 10:46] LABS: Base Excess -5 mmol/L (-2 to +2); Bicarbonate 19.8 mmol/L (22-26); Blood Gas Specimen Type ART; O2 Delivery Device Room Air; PO2 75 mmHG (75-100); SITE R Radial; SO2 95 % (95-99); Time Given 1038; Total Carbon Dioxide 21 mmol/L; pCO2 32.4 mmHg (35-45); pH 7.39 (7.35-7.45)
--- NOTE | 2018-09-16 10:49 | CASEMGMT ---
Social Work Note ANNA spoke with Dr. Klein who states pt's is agreeable to Palliative Care Referral. Physician updated is also agreeable to Palliative Care Referral. ANNA met with pt and pt's Harriet. SW informed Harriet that pre-cert was submitted yesterday for TCU. SW educated Harriet on Palliative Care and [facility]. Harriet agreeable to Palliative Care Referral. ANNA placed a call to [facility] and provided Palliative Care Referral to CYN Larios. ANNA also completed Palliative Care Screening Tool and faxed document to [facility] with Palliative Care Referral. Plan: TCU pending pre-cert. Palliative Care Referral made. Zandra Villar MOTORCYCLE REPAIRER, LOAN REVIEWER
--- NOTE | 2018-09-16 13:00 | PN.SURG_ITS ---
Patient Problems: Active and Suspected Problems (Last Reviewed 09/13/18 @ 11:19 by Sharif Gurrola MD) Pneumothorax (Acute) Cystitis (Acute) Fall (Acute) Subjective: Patient evaluated resting in bed. He continues to be lethargic. Not responding to questions. Patient's pneumothorax increased in size after being on water seal for 4 hours. Patient was reconnected to wall suction. Repeat CXR today demonstrated resolution of the pneumothorax. - Physical Exam General: Lethargic Lungs: Normal air movement, Wheezes - bilaterally, - - Chest tube intact on wall suction Vital Signs Temp Pulse Resp BP Pulse Ox 97.9 F 48 L 16 184/79 H 95 09/16/18 08:27 09/16/18 08:35 09/16/18 08:27 09/16/18 08:27 09/16/18 08:27 Oxygen Flow Rate (L/min) [3] 15 Oxygen Flow Rate (L/min) [2] 15 Oxygen Flow Rate (L/min) [1 ( 15 Initial Baseline)] Oxygen Flow Rate (L/min) 15 Oxygen Delivery Method [3] Non-Rebreather Oxygen Delivery Method [2] Non-Rebreather Oxygen Delivery Method [1 ( Non-Rebreather Initial Baseline)] Oxygen Delivery Method Room Air Weight: 120 lb 5.958 oz Body Mass Index (BMI) 18.3 Finger Stick Blood Glucose 81 Intake and Output for Last 24 Hours 09/14/18 09/15/18 09/16/18 23:59 23:59 23:59 Intake Total 1760 1762081 / 2081 1276 / 1276 Balance 1760 / 1760 1276 / 1276 Microbiology Past 72 Hours 09/14/18 09:24 Blood Culture - Preliminary Blood Culture (Wb) - Left Hand No growth in 48 hours. 09/14/18 09:20 Blood Culture - Preliminary Blood Culture (Wb) - Anticubital Left No growth in 48 hours. 09/12/18 18:30 Urine Culture - Final Urine, Catheterized Enterococcus faecalis Laboratory Tests Past 24 Hrs 09/15/18 09/16/18 09/16/18 11:25 05:42 05:42 WBC 9.6 RBC 3.88 L Hgb 11.9 L Hct 33.6 L MCV 86.6 MCH 30.7 MCHC 35.4 RDW 12.3 RDW Differential 38.1 Plt Count 232 MPV 9.0 Immature Gran % (Auto) 0.100 Neut % (Auto) 68.7 Lymph % (Auto) 20.6 Tillman % (Auto) 6.8 Eos % (Auto) 3.4 Baso % (Auto) 0.4 Absolute Neuts (auto) 6.6 Absolute Lymphs (auto) 1.98 Total Counted Not Reportable Specimen Type Sample Site pH Bicarbonate Actual POC Total CO2 Base Excess O2 Saturation ABG pCO2 ABG pO2 Kamron Test O2 Delivery Device Blood Gas Notified Whom Blood Gas Notified Time Sodium 140 Potassium 3.6 Chloride 107 Carbon Dioxide 23.0 Anion Gap 10 BUN 23 H Creatinine 0.64 L Estim Creat Clear Calc 47.78 Est GFR (MDRD) Af Amer 157 Est GFR (MDRD) Non-Af 130 BUN/Creatinine Ratio 36.2 H Glucose 74 Calcium 8.0 L MRSA (PCR) Pending 09/16/18 10:40 WBC RBC Hgb Hct MCV MCH MCHC RDW RDW Differential Plt Count MPV Immature Gran % (Auto) Neut % (Auto) Lymph % (Auto) Tillman % (Auto) Eos % (Auto) Baso % (Auto) Absolute Neuts (auto) Absolute Lymphs (auto) Total Counted Specimen Type ART Sample Site R Radial pH 7.39 Bicarbonate Actual 19.8 L POC Total CO2 21 Base Excess -5 L O2 Saturation 95 ABG pCO2 32.4 L ABG pO2 75 Kamron Test NA O2 Delivery Device Room Air Blood Gas Notified Whom ICU MD Blood Gas Notified Time 1038 Sodium Potassium Chloride Carbon Dioxide Anion Gap BUN Creatinine Estim Creat Clear Calc Est GFR (MDRD) Af Amer Est GFR (MDRD) Non-Af BUN/Creatinine Ratio Glucose Calcium MRSA (PCR) Medical Necessity - Tobacco Use Smoking Status: Never smoker Assessment/Plan All Active Problems (Last Reviewed 09/13/18 @ 11:19 by Sharif Gurrola MD) Pneumothorax (Acute) Cystitis (Acute) Fall (Acute) Anemia due to blood loss, acute (Acute) Dehydration (Acute) FTT (failure to thrive) in adult (Acute) Lower GI bleed (Acute) Diverticulitis large intestine (Acute) I am following this patient in conjunction with Dr. Gurrola. Right pneumothorax Dr. Gurrola would like to place an 18 [place] Citizen chest tube at bedside Continue to keep patient connected to wall suction Dr. Gurrola will independently evaluate this patient We will continue to monitor this patient Code Visit Inpatient E&M: 97329 Subs Hosp L1
[2018-09-16 13:02] LABS: M R Staph aureus DNA By PCR Negative (Negative); Probe Check PASS; Specimen Processing Control PASS
[2018-09-16] MEDS: hydrALAZINE 20 MG/ML Vial 10 MG IV (14:41)
--- NOTE | 2018-09-16 16:33 | OP.PCM_ITS ---
Problem List (1) Pneumothorax Status: Acute Qualifiers: Pneumothorax type: spontaneous, primary Qualified Code(s): J93.11 - Primary spontaneous pneumothorax (2) Aspiration of food Status: Acute Qualifiers: Encounter type: initial encounter Qualified Code(s): T17.920A - Food in respiratory tract, part unspecified causing asphyxiation, initial encounter Report of Operation Date of Procedure: 09/16/18 Pre-Operative Diagnosis: Right sided pneumothorax. Aspiration of food Post-Operative Diagnosis: Same Surgery/Procedure Performed:: Placement of a right-sided 20 [place] chest tube. Attempted placement of Dobbhoff feeding tube Type of Anesthesia:: Local Description of Procedure: Patient's previous right-sided CorPak chest tube was removed without difficulty. The right side of his chest was sterilely prepped and draped in usual fashion local was injected. Incision was made local was injected in between the intercostal spaces Ana María clamp was used to gain access into the thoracic cavity and a 20 [place] chest tube was directed posteriorly towards the cephalad direction. It was sutured in place with an 0 Nurolon. Sterile dressings were applied and the patient tolerated this well. He did have a small air leak that was noticed that closed spontaneously. A right nares CorPak was then placed after lidocaine jelly was placed in the right nares it went down quite smoothly it was taped to the nares. Portable x- ray was obtained showing the CorPak that will go down through the right bronchus and more likely into the chest cavity I subsequently remove this. Initially the patient did have a very large air leak which spontaneously stopped. Repeat chest x-ray was obtained. Which showed the lung to be completely expanded. We are going to attempt to place a Dobbhoff feeding tube and endoscopy tomorrow. - Admit VTE Documentation VTE Present on Admission: No VTE Mechan Device Prophylaxis: SCD's VTE Pharm Prophylaxis ordered?: No Reason prophylaxis not ordered:: Treatment Not Indicated
[2018-09-16] MEDS: Lidocaine Jelly 2% 20 ML Syringe (URO-JET) 20 APPLIC TOPICAL (16:40)
--- NOTE | 2018-09-16 16:44 | RAD_ITS ---
STUDY: X-RAY CHEST REASON FOR EXAM: Male, 77 years old. Chest tube and Dobbhoff placement TECHNIQUE: AP portable COMPARISON: September 16, 2018 9:48 AM. FINDINGS: The lungs are clear and expanded. There is no demonstrated pleural abnormality. Heart is enlarged. Normal mediastinum and ashanti. Normal visualized pulmonary arteries. Tortuous aortic arch and descending thoracic aorta. Chest tube is seen in the right pleural space. Dorsal spine demonstrates scoliosis and degenerative changes. There is old compression fractures status post kyphoplasty.. Normal visualized ribs, clavicles, and shoulders. Central line is seen on the right. There is no demonstrated abnormality of the visualized soft tissue structures of the upper abdomen. Previously noted right pleural effusion has improved since prior study. Dobbhoff tube is not clearly identified RAD/Chest 1 View (Portable) IMPRESSION: Improvement in right pleural effusion status post chest tube placement. Dobbhoff tube is not clearly identified. Clinical correlation recommended and follow-up Electronically Signed: Chucho Bartholomew MD at 18:20 EDT , Service support ,
--- NOTE | 2018-09-16 17:38 | RAD_ITS ---
STUDY: X-RAY CHEST REASON FOR EXAM: Male, 77 years old. Status post removal of Dobbhoff tube TECHNIQUE: AP portable COMPARISON: September 16, 2018 5:01 PM FINDINGS: There is a tiny right pleural effusion and minor basilar atelectasis. Chest tube noted in the right pleural space Normal size heart. Normal mediastinum and ashanti. Normal visualized pulmonary arteries. Normal visualized aortic arch and descending thoracic aorta. Dorsal spine demonstrates scoliosis and degenerative change. Old compression fractures status post kyphoplasty. Epidural stimulator noted within the thoracic canal. Normal visualized ribs, clavicles, and shoulders. Dobbhoff tube not visualized consistent with clinical history of removal There is no demonstrated abnormality of the visualized soft tissue structures of the upper abdomen. RAD/Chest 1 View (Portable) IMPRESSION: Tiny residual right pleural effusion and right lower lobe atelectasis status post chest tube placement. Nonvisualization of Dobbhoff tube status post removal Electronically Signed: Chucho Bartholomew MD at 18:38 EDT , Service support ,
[2018-09-17] VITALS (11 sets, daily range): BP systolic 125–195; BP diastolic 66–98; PULSE 55–79; RESP 14–18; TEMP 36.2–36.6; O2SAT 94–99; BMI 18.3
[2018-09-17] MEDS: Ketorolac 30 MG/ML Syringe IV ×2 (00:19→12:18)
--- NOTE | 2018-09-17 06:00 | EKG12_ITS ---
Test Reason : PRE-OP Blood Pressure : / mmHG Vent. Rate : 057 BPM Atrial Rate : 057 BPM P-R Int : 152 ms QRS Dur : 106 ms QT Int : 496 ms P-R-T Axes : 077 050 061 degrees QTc Int : 482 ms Sinus bradycardia Low voltage QRS Nonspecific T wave abnormality Prolonged QT Abnormal ECG When compared with ECG of 08-JUL-2015 05:42, No significant change was found Confirmed by AZALIA PAGAN, REYNALDO ([id number]), photograph editor RADHA FELIX ([id number]) on 09/18/2018 8:16:56 AM Referred By: Jluis Cason Confirmed By:REYNALDO VIEYRA MD
[2018-09-17 06:31] LABS: Absolute Lymphocyte Count 1.97 X10^3/ul (0.83-4.51); Absolute Neutrophil Count 9.9 X10^3/uL (2.0-7.7); Basophil# 0.07 X10^3/uL; Basophil% 0.5 % (0-1); Differential Indicated SCAN CRITERIA MET; Eosinophil# 0.34 X10^3/uL; Eosinophils% 2.6 % (0-5); Hematocrit 38.6 % (40-54); Hemoglobin 13.5 g/dl (13.0-16.5); Lymphocyte # 1.97 X10^3/ul (4.0); Lymphocyte % 14.9 % (19-41); Mean Corpuscular Hgb 30.9 pg (27.0-32.0); Mean Corpuscular Volume 88.3 fL (80-94); Mean Platelet Vol. 9.4 fl (6.2-12.0); Monocyte# 0.86 X10^3/uL; Monocyte% 6.5 % (0-10); Neutrophil # 9.92 X10^3/uL (2.7-7.7); Neutrophil % 75.3 % (47-70); POSITIVE COUNT YES; POSITIVE DIFFERENTIAL NO; POSITIVE MORPHOLOGY NO; Platelet Count 52 K/mm3 (150-450); RBC Distribution Width CV 12.8 % (11.6-14.6); RBC Distribution Width SD 41.3 fl (35.1-43.9); Red Blood Count 4.37 M/mm3 (4.6-6.2); White Blood Count 13.2 K/mm3 (4.4-11.0)
[2018-09-17 06:43] LABS: Anion Gap 14 (5-15); BUN 14 mg/dL (7-18); BUN/Creat Ratio 25.3 RATIO (10-20); Calcium,Total 7.7 mg/dL (8.5-10.1); Chloride 109 mmol/L (98-107); Creatinine, Serum 0.55 mg/dL (0.70-1.30); EST Glomerular Filtration Rate 152 mL/min (>60); Est Glom Filt Rate - Afr Amer 184 mL/min (>60); Estimated Creatinine Clearance 47.78 ml/min; Glucose 68 mg/dL (74-106); Potassium 3.4 mmol/L (3.5-5.1); Sodium Level 137 mmol/L (136-145)
[2018-09-17 06:52] LABS: Differential Comment SCAN
[2018-09-17 06:53] LABS: Platelet Estimate MOD DEC (ADEQ)
[2018-09-17] MEDS: Lidocaine Jelly 2% 20 ML Syringe (URO-JET) 20 APPLIC TOPICAL (07:30)
--- NOTE | 2018-09-17 07:45 | NURSING ---
off unit via bed for scheduled procedure. ct intact, no crepitus, ls diminished throughout. zosyn infusing
--- NOTE | 2018-09-17 08:30 | SUR.PREOP ---
Right sided chest tube placed to suction at -20 per order, canister appears without complication. Site with crepitus posterior to left of drsg. Equal rise of chest observed, LS more diminished on right compared to left, minimal bright red drainage from chest tube. Pt does not appear distressed VSS. Dr. Gurrola made aware of chest tube finding and states crepitus is not new for pt.
--- NOTE | 2018-09-17 08:34 | PCM.PN.PUL ---
Patient Problems: Active and Suspected Problems (Last Reviewed 09/13/18 @ 11:19 by Sharif Gurrola MD) Pneumothorax (Acute) Cystitis (Acute) Fall (Acute) Aspiration of food (Acute) Subjective: The patient was seen and examined at the bedside this morning. Events from the last 24 hours have been reviewed. The patient is currently afebrile, hemodynamically stable and maintaining appropriate oxygen saturations on room air. Last evening, the patient small bore chest tube was removed and replaced with a 20 [place] tube by general surgery. Following this, attempt was undertaken at the bedside to place a CorPak. Due to malpositioning, the corpak had to be removed and there are plans for the patient to have the tube replaced today endoscopically. The patient remains quite lethargic. His at the bedside reports that she has a meeting scheduled today with palliative care, but is leaning towards initiation of hospice services. Objective: The patient's most recent lab work, culture data and imaging studies have all been personally reviewed. Blood cultures have revealed no growth to date. - Physical Exam General: - - Will arouse transiently to verbal and noxious stimulation. Remains quite lethargic. HEENT: Atraumatic, PERRLA, Normocephalic, - - Dobbhoff feeding tube in place Oral: Dry Mucosa Neck: Supple, No Nodes, Trachea Midline Lungs: Diminished, - - Right-sided large bore chest tube in place. No air leak noted in the atrium. Cardiovascular: Normal S1, Normal S2, No murmurs, Bradycardic Abdomen: Bowel Sounds Present, Soft, Non Tender Extremities: No clubbing, No cyanosis, No edema Skin: - - No significant change from previous Musculoskeletal: Cachexia, Muscle Wasting Lymphatic: No Cervical, Supraclavicular, or Inguinal Adenopathy Neurological: - - No focal deficits Psych/Mental Status: Flat Affect Vital Signs Temp Pulse Resp BP Pulse Ox 97.7 F L 57 L 16 169/76 H 99 09/17/18 08:06 09/17/18 08:06 09/17/18 08:06 09/17/18 08:06 09/17/18 08:06 Oxygen Flow Rate (L/min) [3] 15 Oxygen Flow Rate (L/min) [2] 15 Oxygen Flow Rate (L/min) [1 ( 15 Initial Baseline)] Oxygen Flow Rate (L/min) 15 Oxygen Delivery Method [3] Non-Rebreather Oxygen Delivery Method [2] Non-Rebreather Oxygen Delivery Method [1 ( Non-Rebreather Initial Baseline)] Oxygen Delivery Method Room Air Weight: 120 lb 5.958 oz Body Mass Index (BMI) 18.3 Finger Stick Blood Glucose 81 Intake and Output for Last 24 Hours 09/15/18 09/16/18 09/17/18 23:59 23:59 23:59 Intake Total 2081 1200 / 1200 Balance 2081 1200 / 1200 Microbiology Past 72 Hours 09/14/18 09:24 Blood Culture - Preliminary Blood Culture (Wb) - Left Hand No growth in 48 hours. 09/14/18 09:20 Blood Culture - Preliminary Blood Culture (Wb) - Anticubital Left No growth in 48 hours. 09/12/18 18:30 Urine Culture - Final Urine, Catheterized Enterococcus faecalis Laboratory Tests Past 24 Hrs 09/15/18 09/16/18 09/17/18 11:25 10:40 05:58 WBC 13.2 H RBC 4.37 L Hgb 13.5 Hct 38.6 L MCV 88.3 MCH 30.9 MCHC 35.0 RDW 12.8 RDW Differential 41.3 Plt Count 52 L MPV 9.4 Immature Gran % (Auto) 0.200 Neut % (Auto) 75.3 H Lymph % (Auto) 14.9 L [place] % (Auto) 6.5 Eos % (Auto) 2.6 Baso % (Auto) 0.5 Absolute Neuts (auto) 9.9 H Absolute Lymphs (auto) 1.97 Total Counted Not Reportable Differential Comment SCAN Platelet Estimate MOD DEC Specimen Type ART Sample Site R Radial pH 7.39 Bicarbonate Actual 19.8 L POC Total CO2 21 Base Excess -5 L O2 Saturation 95 ABG pCO2 32.4 L ABG pO2 75 Kamron Test NA O2 Delivery Device Room Air Blood Gas Notified Whom ICU Blood Gas Notified Time 1038 Sodium Potassium Chloride Carbon Dioxide Anion Gap BUN Creatinine Estim Creat Clear Calc Est GFR (MDRD) Af Amer Est GFR (MDRD) Non-Af BUN/Creatinine Ratio Glucose Calcium MRSA (PCR) Negative 09/17/18 05:58 WBC RBC Hgb Hct MCV MCH MCHC RDW RDW Differential Plt Count MPV Immature Gran % (Auto) Neut % (Auto) Lymph % (Auto) [place] % (Auto) Eos % (Auto) Baso % (Auto) Absolute Neuts (auto) Absolute Lymphs (auto) Total Counted Differential Comment Platelet Estimate Specimen Type Sample Site pH Bicarbonate Actual POC Total CO2 Base Excess O2 Saturation ABG pCO2 ABG pO2 Kamron Test O2 Delivery Device Blood Gas Notified Whom Blood Gas Notified Time Sodium 137 Potassium 3.4 L Chloride 109 H Carbon Dioxide 14.0 L Anion Gap 14 BUN 14 Creatinine 0.55 L Estim Creat Clear Calc 47.78 Est GFR (MDRD) Af Amer 184 Est GFR (MDRD) Non-Af 152 BUN/Creatinine Ratio 25.3 H Glucose 68 L Calcium 7.7 L MRSA (PCR) Clinical Impression(s) from Imaging Studies Abdomen/Pelvis CT 09/12/18 17:59 IMPRESSION: 1. Large right pneumothorax partially visualized. 2. No abdominal ascites or pneumoperitoneum. 3. Moderate fecal retention. 4. Similar degenerative and operative changes of the lumbar spine. Lower thoracic and upper lumbar vertebral body compression fractures are similar since 2017. 5. Atherosclerosis. 6. Nonobstructing renal calculi. Electronically Signed: Flavio Jacome MD at 19:23 EDT , Service support , Brain CT 09/12/18 18:24 IMPRESSION: 1. No acute intracranial hemorrhage or mass effect. 2. Central parenchymal volume loss. White matter changes that are nonspecific but most commonly associated with chronic small vessel ischemic disease. Electronically Signed: Flavio Jacome MD at 19:18 EDT , Service support , Chest X-Ray 09/12/18 19:00 IMPRESSION: Stable cardiomegaly, hyperexpansion and hiatal hernia. No acute finding. Electronically Signed: Gaudencio Hearn MD at 19:21 EDT , Service support , ADDENDUM: 09/12/182000 Chest X-Ray 09/12/18 19:40 IMPRESSION: Placement of right thoracostomy tube with decrease in right pneumothorax. Electronically Signed: Gaudencio Hearn MD at 19:54 EDT , Service support , Chest X-Ray 09/13/18 05:50 IMPRESSION: small less than 1 cm residual right-sided pneumothorax which is smaller in size when compared to prior exam Stable right-sided chest tube Stimulator wires overlying the mid thoracic spine Prior compression fractures thoracic spine with prior kyphoplasty in thoracic dextroscoliosis unchanged Improved aeration with improving bibasilar subsegmental atelectasis Electronically Signed: Juan Pablo Mendoza at 7:25 EDT Tel , Service support , Chest X-Ray 09/14/18 05:55 IMPRESSION: Minimal residual right apical pneumothorax. There has been no change. Electronically Signed: Corby Figueroa, at 13:05 EDT , Service support , Brain CT 09/14/18 09:04 IMPRESSION: Chronic involutional changes of the brain. Stable examination. Electronically Signed: Corby Figueroa, at 11:19 EDT , Service support , Chest X-Ray 09/14/18 12:00 IMPRESSION: Increase in size of the right apical pneumothorax. Mild left basilar atelectasis. Electronically Signed: Corby Figueroa, at 11:17 EDT , Service support , Chest X-Ray 09/14/18 22:43 IMPRESSION: Decrease in size of right-sided pneumothorax, no change in right chest tube position. If there is clinical concern for intrathoracic or malpositioned chest tube CT could be performed to evaluate position Mild developing right lower lobe infiltrate and/or subsegmental atelectasis Electronically Signed: Juan Pablo Mendoza, at 23:20 EDT Tel , Service support , Chest X-Ray 09/15/18 16:00 IMPRESSION: Increasing right hydropneumothorax with right lower lobe consolidation.. Probable small left effusion and left lower lobe atelectasis Electronically Signed: Chucho Bartholomew MD at 17:13 EDT , Service support , ADDENDUM: 09/15/18 1735 IMPRESSION: Increasing right hydropneumothorax with right lower lobe consolidation.. Probable small left effusion and left lower lobe atelectasis N.B. : The above information has been verbally conveyed by Chucho Bartholomew MD to Judy Sherman RN, on 09/15/2018 17:28:17 (ET). Electronically Signed: Chucho Bartholomew MD at 17:13 EDT , Service support , Chest X-Ray 09/16/18 09:54 IMPRESSION: No evidence of pneumothorax at this time. Persistent atelectasis and/or infiltrates at the lung bases worse on the right side with blunting of both costophrenic angles. Electronically Signed: Corby Figueroa, at 10:27 EDT , Service support , Chest X-Ray 09/16/18 16:44 IMPRESSION: Improvement in right pleural effusion status post chest tube placement. Dobbhoff tube is not clearly identified. Clinical correlation recommended and follow-up Electronically Signed: Chucho Bartholomew MD at 18:20 EDT , Service support , Chest X-Ray 09/16/18 17:38 IMPRESSION: Tiny residual right pleural effusion and right lower lobe atelectasis status post chest tube placement. Nonvisualization of Dobbhoff tube status post removal Electronically Signed: Chucho Bartholomew MD at 18:38 EDT , Service support , Medical Necessity - Tobacco Use Smoking Status: Never smoker Assessment/Plan All Active Problems (Last Reviewed 09/13/18 @ 11:19 by Sharif Gurrola MD) Pneumothorax (Acute) Cystitis (Acute) Fall (Acute) Aspiration of food (Acute) Anemia due to blood loss, acute (Acute) Dehydration (Acute) FTT (failure to thrive) in adult (Acute) Lower GI bleed (Acute) Diverticulitis large intestine (Acute) RECOMMENDATIONS: 1. Agree with palliative care referral and consideration for the initiation of hospice care services. 2. Chest tube management per surgery. 3. Start nutritional support through nasogastric tube. 4. Continue antibiotics as ordered. 5. Continue aspiration precautions and bronchopulmonary hygiene, as tolerated by the patient. 6. Avoid CPAP/BiPAP, given issues with pneumothorax. IMPRESSIONS: 1. Right-sided pneumothorax following fall at home Continue management of chest tube per surgery recommendations. Avoid any form of noninvasive positive pressure ventilatory support. 2. Concerns for aspiration pneumonia Given the patient's history of chronic, silent aspiration and the radiographic findings noted on his most recent chest x-ray, clinical concern would be for aspiration pneumonia. Agree with broad-spectrum antibiotics as ordered. If the patient does produce any sputum, please send for culture. Continue aggressive bronchopulmonary hygiene, as tolerated by the patient. 3. Concerns for sleep apnea I did personally witness the patient at the bedside this morning with multiple hypercapnic/apneic events. Given the patient's Parkinson's disease, it is certainly possible that he has underlying sleep apnea. Nevertheless, in the setting of his current pneumothorax, would recommend avoiding positive pressure ventilatory support at this time. I would avoid sedating medications as well. 4. 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 I did refer him to speech therapy after that office evaluation. The patient was confirmed to be aspirating on a chronic basis. It was also recommended that he establish a relationship with palliative care. However, the patient's reported that they were unable to do so. There are tentative plans for the patient's to meet with palliative care today. I do feel that the patient is likely hospice appropriate at this time. This note was generated with [employer] software. It may contain incorrect words, spelling, and punctuation that were not noted in checking the note before signing. Code Visit Inpatient E&M: 16629 Subs Hosp L3
--- NOTE | 2018-09-17 08:38 | PN_ITS ---
Patient Problems: Active and Suspected Problems (Last Reviewed 09/13/18 @ 11:19 by Sharif Gurrola MD) Pneumothorax (Acute) Cystitis (Acute) Fall (Acute) Aspiration of food (Acute) Subjective: The patient was seen and examined at the bedside this morning. Events from the last 24 hours have been reviewed. The patient is currently afebrile, hemodynamically stable and maintaining appropriate oxygen saturations on room air. Last evening, the patient small bore chest tube was removed and replaced with a 20 German tube by general surgery. Following this, attempt was undertaken at the bedside to place a CorPak. Due to malpositioning, the corpak had to be removed and there are plans for the patient to have the tube replaced today endoscopically. The patient remains quite lethargic. His at the bedside reports that she has a meeting scheduled today with palliative care, but is leaning towards initiation of hospice services. Objective: The patient's most recent lab work, culture data and imaging studies have all been personally reviewed. Blood cultures have revealed no growth to date. - Physical Exam General: - - Will arouse transiently to verbal and noxious stimulation. Remains quite lethargic. HEENT: Atraumatic, PERRLA, Normocephalic, - - Dobbhoff feeding tube in place Oral: Dry Mucosa Neck: Supple, No Nodes, Trachea Midline Lungs: Diminished, - - Right-sided large bore chest tube in place. No air leak noted in the atrium. Cardiovascular: Normal S1, Normal S2, No murmurs, Bradycardic Abdomen: Bowel Sounds Present, Soft, Non Tender Extremities: No clubbing, No cyanosis, No edema Skin: - - No significant change from previous Musculoskeletal: Cachexia, Muscle Wasting Lymphatic: No Cervical, Supraclavicular, or Inguinal Adenopathy Neurological: - - No focal deficits Psych/Mental Status: Flat Affect Vital Signs Temp Pulse Resp BP Pulse Ox 97.7 F L 57 L 16 169/76 H 99 09/17/18 08:06 09/17/18 08:06 09/17/18 08:06 09/17/18 08:06 09/17/18 08:06 Oxygen Flow Rate (L/min) [3] 15 Oxygen Flow Rate (L/min) [2] 15 Oxygen Flow Rate (L/min) [1 ( 15 Initial Baseline)] Oxygen Flow Rate (L/min) 15 Oxygen Delivery Method [3] Non-Rebreather Oxygen Delivery Method [2] Non-Rebreather Oxygen Delivery Method [1 ( Non-Rebreather Initial Baseline)] Oxygen Delivery Method Room Air Weight: 120 lb 5.958 oz Body Mass Index (BMI) 18.3 Finger Stick Blood Glucose 81 Intake and Output for Last 24 Hours 09/15/18 09/16/18 09/17/18 23:59 23:59 23:59 Intake Total 2081 1200 / 1200 Balance 2081 1200 / 1200 Microbiology Past 72 Hours 09/14/18 09:24 Blood Culture - Preliminary Blood Culture (Wb) - Left Hand No growth in 48 hours. 09/14/18 09:20 Blood Culture - Preliminary Blood Culture (Wb) - Anticubital Left No growth in 48 hours. 09/12/18 18:30 Urine Culture - Final Urine, Catheterized Enterococcus faecalis Laboratory Tests Past 24 Hrs 09/15/18 09/16/18 09/17/18 11:25 10:40 05:58 WBC 13.2 H RBC 4.37 L Hgb 13.5 Hct 38.6 L MCV 88.3 MCH 30.9 MCHC 35.0 RDW 12.8 RDW Differential 41.3 Plt Count 52 L MPV 9.4 Immature Gran % (Auto) 0.200 Neut % (Auto) 75.3 H Lymph % (Auto) 14.9 L Atkinson % (Auto) 6.5 Eos % (Auto) 2.6 Baso % (Auto) 0.5 Absolute Neuts (auto) 9.9 H Absolute Lymphs (auto) 1.97 Total Counted Not Reportable Differential Comment SCAN Platelet Estimate MOD DEC Specimen Type ART Sample Site R Radial pH 7.39 Bicarbonate Actual 19.8 L POC Total CO2 21 Base Excess -5 L O2 Saturation 95 ABG pCO2 32.4 L ABG pO2 75 Kamron Test NA O2 Delivery Device Room Air Blood Gas Notified Whom ICU Blood Gas Notified Time 1038 Sodium Potassium Chloride Carbon Dioxide Anion Gap BUN Creatinine Estim Creat Clear Calc Est GFR (MDRD) Af Amer Est GFR (MDRD) Non-Af BUN/Creatinine Ratio Glucose Calcium MRSA (PCR) Negative 09/17/18 05:58 WBC RBC Hgb Hct MCV MCH MCHC RDW RDW Differential Plt Count MPV Immature Gran % (Auto) Neut % (Auto) Lymph % (Auto) Atkinson % (Auto) Eos % (Auto) Baso % (Auto) Absolute Neuts (auto) Absolute Lymphs (auto) Total Counted Differential Comment Platelet Estimate Specimen Type Sample Site pH Bicarbonate Actual POC Total CO2 Base Excess O2 Saturation ABG pCO2 ABG pO2 Kamron Test O2 Delivery Device Blood Gas Notified Whom Blood Gas Notified Time Sodium 137 Potassium 3.4 L Chloride 109 H Carbon Dioxide 14.0 L Anion Gap 14 BUN 14 Creatinine 0.55 L Estim Creat Clear Calc 47.78 Est GFR (MDRD) Af Amer 184 Est GFR (MDRD) Non-Af 152 BUN/Creatinine Ratio 25.3 H Glucose 68 L Calcium 7.7 L MRSA (PCR) Clinical Impression(s) from Imaging Studies Abdomen/Pelvis CT 09/12/18 17:59 IMPRESSION: 1. Large right pneumothorax partially visualized. 2. No abdominal ascites or pneumoperitoneum. 3. Moderate fecal retention. 4. Similar degenerative and operative changes of the lumbar spine. Lower thoracic and upper lumbar vertebral body compression fractures are similar since 2017. 5. Atherosclerosis. 6. Nonobstructing renal calculi. Electronically Signed: Flavio Jacome MD at 19:23 EDT , Service support , Brain CT 09/12/18 18:24 IMPRESSION: 1. No acute intracranial hemorrhage or mass effect. 2. Central parenchymal volume loss. White matter changes that are nonspecific but most commonly associated with chronic small vessel ischemic disease. Electronically Signed: Flavio Jacome MD at 19:18 EDT , Service support , Chest X-Ray 09/12/18 19:00 IMPRESSION: Stable cardiomegaly, hyperexpansion and hiatal hernia. No acute finding. Electronically Signed: Gaudencio Hearn MD at 19:21 EDT , Service support , ADDENDUM: 09/12/182000 Chest X-Ray 09/12/18 19:40 IMPRESSION: Placement of right thoracostomy tube with decrease in right pneumothorax. Electronically Signed: Gaudencio Hearn MD at 19:54 EDT , Service support , Chest X-Ray 09/13/18 05:50 IMPRESSION: small less than 1 cm residual right-sided pneumothorax which is smaller in size when compared to prior exam Stable right-sided chest tube Stimulator wires overlying the mid thoracic spine Prior compression fractures thoracic spine with prior kyphoplasty in thoracic dextroscoliosis unchanged Improved aeration with improving bibasilar subsegmental atelectasis Electronically Signed: Juan Pablo Mendoza at 7:25 EDT Tel , Service support , Chest X-Ray 09/14/18 05:55 IMPRESSION: Minimal residual right apical pneumothorax. There has been no change. Electronically Signed: Corby Figueroa, at 13:05 EDT , Service support , Brain CT 09/14/18 09:04 IMPRESSION: Chronic involutional changes of the brain. Stable examination. Electronically Signed: Corby Figueroa, at 11:19 EDT , Service support , Chest X-Ray 09/14/18 12:00 IMPRESSION: Increase in size of the right apical pneumothorax. Mild left basilar atelectasis. Electronically Signed: Corby Figueroa, at 11:17 EDT , Service support , Chest X-Ray 09/14/18 22:43 IMPRESSION: Decrease in size of right-sided pneumothorax, no change in right chest tube position. If there is clinical concern for intrathoracic or malpositioned chest tube CT could be performed to evaluate position Mild developing right lower lobe infiltrate and/or subsegmental atelectasis Electronically Signed: Juan Pablo Mendoza, at 23:20 EDT Tel , Service support , Chest X-Ray 09/15/18 16:00 IMPRESSION: Increasing right hydropneumothorax with right lower lobe consolidation.. Probable small left effusion and left lower lobe atelectasis Electronically Signed: Chucho Bartholomew MD at 17:13 EDT , Service support , ADDENDUM: 09/15/18 1735 IMPRESSION: Increasing right hydropneumothorax with right lower lobe consolidation.. Probable small left effusion and left lower lobe atelectasis N.B. : The above information has been verbally conveyed by Chucho Bartholomew MD to Judy Sherman RN, on 09/15/2018 17:28:17 (ET). Electronically Signed: Chucho Bartholomew MD at 17:13 EDT , Service support , Chest X-Ray 09/16/18 09:54 IMPRESSION: No evidence of pneumothorax at this time. Persistent atelectasis and/or infiltrates at the lung bases worse on the right side with blunting of both costophrenic angles. Electronically Signed: Corby Figueroa, at 10:27 EDT , Service support , Chest X-Ray 09/16/18 16:44 IMPRESSION: Improvement in right pleural effusion status post chest tube placement. Dobbhoff tube is not clearly identified. Clinical correlation recommended and follow-up Electronically Signed: Chucho Bartholomew MD at 18:20 EDT , Service support , Chest X-Ray 09/16/18 17:38 IMPRESSION: Tiny residual right pleural effusion and right lower lobe atelectasis status post chest tube placement. Nonvisualization of Dobbhoff tube status post removal Electronically Signed: Chucho Bartholomew MD at 18:38 EDT , Service support , Medical Necessity - Tobacco Use Smoking Status: Never smoker Assessment/Plan All Active Problems (Last Reviewed 09/13/18 @ 11:19 by Sharif Gurrola MD) Pneumothorax (Acute) Cystitis (Acute) Fall (Acute) Aspiration of food (Acute) Anemia due to blood loss, acute (Acute) Dehydration (Acute) FTT (failure to thrive) in adult (Acute) Lower GI bleed (Acute) Diverticulitis large intestine (Acute) RECOMMENDATIONS: 1. Agree with palliative care referral and consideration for the initiation of hospice care services. 2. Chest tube management per surgery. 3. Start nutritional support through nasogastric tube. 4. Continue antibiotics as ordered. 5. Continue aspiration precautions and bronchopulmonary hygiene, as tolerated by the patient. 6. Avoid CPAP/BiPAP, given issues with pneumothorax. IMPRESSIONS: 1. Right-sided pneumothorax following fall at home Continue management of chest tube per surgery recommendations. Avoid any form of noninvasive positive pressure ventilatory support. 2. Concerns for aspiration pneumonia Given the patient's history of chronic, silent aspiration and the radiographic findings noted on his most recent chest x-ray, clinical concern would be for aspiration pneumonia. Agree with broad-spectrum antibiotics as ordered. If the patient does produce any sputum, please send for culture. Continue aggressive bronchopulmonary hygiene, as tolerated by the patient. 3. Concerns for sleep apnea I did personally witness the patient at the bedside this morning with multiple hypercapnic/apneic events. Given the patient's Parkinson's disease, it is certainly possible that he has underlying sleep apnea. Nevertheless, in the setting of his current pneumothorax, would recommend avoiding positive pressure ventilatory support at this time. I would avoid sedating medications as well. 4. 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 I did refer him to speech therapy after that office evaluation. The patient was confirmed to be aspirating on a chronic basis. It was also recommended that he establish a relationship with palliative care. However, the patient's reported that they were unable to do so. There are tentative plans for the patient's to meet with palliative care today. I do feel that the patient is likely hospice appropriate at this time. This note was generated with One-Song[employer] software. It may contain incorrect words, spelling, and punctuation that were not noted in checking the note before signing. Code Visit Inpatient E&M: 05813 Subs Hosp L3
--- NOTE | 2018-09-17 08:41 | CASEMGMT ---
ANNA spoke w/physician, pt is not yet ready for discharge. Pt may be ready by the weekend. ANNA called Marika in TCU, message left to update so she can let insurance company know while working on attaining precert. YANE Clement
--- NOTE | 2018-09-17 09:18 | OP.ENDO_ITS ---
09/17/2018 Tereso Abraham [address] [place] [address] Re : Upper GI endoscopy procedure for Sharif Yan Dear Dr. Abraham This procedure was performed on September. My impressions and recommendations are as follows: Impressions : - Normal esophagus. No specimens collected. - Normal stomach. - Normal examined duodenum. No specimens collected. - Feeding tube placement was successfully performed. Recommendations : - [facility] to [facility] care. - Tube feeds indefinitely. - Continue present medications. - Repeat upper endoscopy. - Return to primary care physician at appointment to be scheduled. My findings are described in the full procedure note, which is enclosed. If I can be of further assistance, please feel free to contact me at Doctor phone number(s): , Fax: [phone], Work: . Sincerely, MD Sharif Bassett MD 09/17/2018 9:17:49 AM This report has been signed electronically.
--- NOTE | 2018-09-17 10:58 | NURSING ---
pt just returned to unit from procedure. dr phipps in w/pt and
--- NOTE | 2018-09-17 11:16 | CASEMGMT ---
Patient has a Healthcare POA and Healthcare LW on file at [facility]. Korina GODDARD [employer]
[2018-09-17] MEDS: 0.9% Normal Saline 1,000 ML 100 ML IV ×2 (11:23→20:45)
--- NOTE | 2018-09-17 11:41 | PCM.PN.HOSP ---
Patient Problems: Active and Suspected Problems (Last Reviewed 09/13/18 @ 11:19 by Sharif Gurrola MD) Pneumothorax (Acute) Cystitis (Acute) Fall (Acute) Aspiration of food (Acute) Subjective: Patient seen and examined. He had Dobbhoff NG tube placement today. Chest tube was also changed to a bigger size yesterday. Patient still remains very lethargic but however his says he is able to answer questions when asked. Patient cannot verbalize but was able to check his head in response to questions and denied being in any pain or feeling short of breath. He also denied any chest pain, abdominal pain or diarrhea. Review of systems otherwise negative. Labs and vitals reviewed. Hospitalist had extensive discussion with about patient's prognosis and his debilitated state. was wondering if patient would be back to being able to eat a regular diet and ambulate with his walker. Hospitalist informed that in light of patient's advanced debility and chronic silent aspiration, he was at risk of aspiration pneumonia like he currently had and he would need a lot of therapy to even regain a semblance of ability to ambulate. Palliative care is meeting with today and was also open to hospice care and will discuss that with palliative care when they came in. Her long-term goal is to take patient back home possibly with hospice. Vitals/I&O's: Vital Signs Temp Pulse Resp BP Pulse Ox 97.8 F 58 L 18 195/94 H 96 09/17/18 11:32 09/17/18 11:32 09/17/18 11:32 09/17/18 11:32 09/17/18 11:32 Oxygen Flow Rate (L/min) [3] 15 Oxygen Flow Rate (L/min) [2] 15 Oxygen Flow Rate (L/min) [1 ( 15 Initial Baseline)] Oxygen Flow Rate (L/min) 15 Oxygen Delivery Method [3] Non-Rebreather Oxygen Delivery Method [2] Non-Rebreather Oxygen Delivery Method [1 ( Non-Rebreather Initial Baseline)] Oxygen Delivery Method Room Air Weight: 120 lb 5.958 oz Body Mass Index (BMI) 18.3 Finger Stick Blood Glucose 81 Intake and Output for Last 24 Hours 09/15/18 09/16/18 09/17/18 23:59 23:59 23:59 Intake Total 2081 1700 / 1700 Balance 2081 1700 / 1700 General: very lethargic HEENT: Atraumatic, PERRLA, EOMI, Normocephalic Oral: Dry Mucosa Neck: Supple, No JVD, Negative Carotid Bruits Lungs: - - significantly decreased breath sounds in right lung bruner; Right sided chest tube in place Cardiovascular: Regular rate, Regular Rhythm, Normal S1, Normal S2, No murmurs Abdomen: Bowel Sounds Present, Soft, Non Tender, Non-Distended, No Hepato-splenomegaly Extremities: No clubbing, No cyanosis, No edema, Capillary Refill Less than 3 Seconds Skin: No rashes, No breakdown Musculoskeletal: No Tenderness to Palpation of Joints or Extremities Neurological: - - very lethargic; Psych/Mental Status: - -lethargic Microbiology Past 72 Hours 09/14/18 09:24 Blood Culture (Wb) - Left Hand Blood Culture - Preliminary No growth in 48 hours. 09/14/18 09:20 Blood Culture (Wb) - Anticubital Left Blood Culture - Preliminary No growth in 48 hours. 09/12/18 18:30 Urine, Catheterized Urine Culture - Final Enterococcus faecalis Laboratory Results 09/15/18 11:25: MRSA (PCR) Negative 09/17/18 05:58: WBC 13.2 H, RBC 4.37 L, Hgb 13.5, Hct 38.6 L, MCV 88.3, MCH 30.9, MCHC 35.0, RDW 12.8, RDW Differential 41.3, Plt Count 52 L, MPV 9.4, Immature Gran % (Auto) 0.200, Neut % (Auto) 75.3 H, Lymph % (Auto) 14.9 L, [place] % (Auto) 6.5, Eos % (Auto) 2.6, Baso % (Auto) 0.5, Absolute Neuts (auto) 9.9 H, Absolute Lymphs (auto) 1.97, Total Counted Not Reportable, Differential Comment SCAN, Platelet Estimate MOD 09/17/18 05:58: Sodium 137, Potassium 3.4 L, Chloride 109 H, Carbon Dioxide 14.0 L, Anion Gap 14, BUN 14, Creatinine 0.55 L, Estim Creat Clear Calc 47.78, Est GFR (MDRD) Af Amer 184, Est GFR (MDRD) Non-Af 152, BUN/Creatinine Ratio 25.3 H, Glucose 68 L, Calcium 7.7 L Diagnostic Data Abdomen/Pelvis CT 09/12/18 17:59 IMPRESSION: 1. Large right pneumothorax partially visualized. 2. No abdominal ascites or pneumoperitoneum. 3. Moderate fecal retention. 4. Similar degenerative and operative changes of the lumbar spine. Lower thoracic and upper lumbar vertebral body compression fractures are similar since 2017. 5. Atherosclerosis. 6. Nonobstructing renal calculi. Electronically Signed: Flavio Jacome MD at 19:23 EDT , Service support , Brain CT 09/14/18 09:04 IMPRESSION: Chronic involutional changes of the brain. Stable examination. Electronically Signed: Corby Figueroa, at 11:19 EDT , Service support , Chest X-Ray 09/16/18 17:38 IMPRESSION: Tiny residual right pleural effusion and right lower lobe atelectasis status post chest tube placement. Nonvisualization of Dobbhoff tube status post removal Electronically Signed: Chucho Bartholomew MD at 18:38 EDT , Service support , Current Medications Acetaminophen (Tylenol) 500 mg PO Q6H PRN PRN PRN Reason: PAIN Carbidopa/Levodopa (Sinemet) 1 tablet PO TIDAC [facility] Last Admin: 09/17/18 06:17 Dose: Not Given Dextrose (D50w Syringe) 0 gm IV X1 PRN; Protocol PRN Reason: Hypoglycemia Enoxaparin Sodium (Lovenox) 40 mg SC DAILY@1000 [facility] Last Admin: 09/16/18 09:46 Dose: 40 mg Glucagon () 1 mg IM .X1 PRN PRN Reason: Hypoglycemia Glycopyrrolate (Robinul) 1 mg PO TID [facility] Last Admin: 09/17/18 05:10 Dose: Not Given Hydralazine HCl (Apresoline Iv) 10 mg IV Q6H PRN PRN PRN Reason: BLOOD PRESSURE ELEVATION Last Admin: 09/16/18 14:41 Dose: 10 mg Sodium Chloride () 250 mls @ 15 mls/hr IV .[id number] PRN PRN Reason: SALINE FLUSH Famotidine 20 mg/ Sodium (Chloride) 10 mls @ 300 mls/hr IV Q24 [facility] Last Admin: 09/16/18 09:45 Dose: 300 mls/hr Piperacillin Sod/Tazobactam (Sod 3.375 gm/ Sodium Chloride) 50 mls @ 12.5 mls/hr IV Q8 [facility] Last Admin: 09/17/18 05:08 Dose: 12.5 mls/hr Sodium Chloride () 1,000 mls @ 100 mls/hr IV .Q10H [facility] Last Admin: 09/17/18 11:23 Dose: 100 mls/hr Enteral Nutritional Formula (Jevity 1.5) 1,000 mls @ 20 mls/hr GT .Q48H [facility] Ketorolac Tromethamine (Toradol) 30 mg IV Q8H PRN PRN PRN Reason: PAIN Stop: 09/19/18 11:43 Last Admin: 09/17/18 00:19 Dose: 30 mg Melatonin (Melatonin) 3 mg PO QHS PRN PRN Reason: INSOMNIA [facility]ivit[facility] ([facility]itamin) [facility] Last Admin: 09/16/18 08:34 Dose: Not Given Nutritional Formula (Lactose Free) (Ensure Enlive) 120 ml PO TID [facility] Last Admin: 09/17/18 05:09 Dose: Not Given Ondansetron HCl (Zofran) 4 mg IV Q8H PRN PRN PRN Reason: NAUSEA/VOMITING Pantoprazole Sodium (Protonix) 40 mg PO DAILY [facility] Last Admin: 09/16/18 09:46 Dose: Not Given Pramipexole Dihydrochloride (Mirapex) 0.5 mg PO TIDCM [facility] Last Admin: 09/16/18 17:58 Dose: Not Given Rivastigmine Tartrate (Exelon) 3 mg PO BIDCM [facility] Last Admin: 09/16/18 17:57 Dose: Not Given Sodium Chloride () 5 - 15 ml IV UD PRN PRN Reason: SALINE FLUSH Last Admin: 09/16/18 16:03 Dose: 10 ml Venlafaxine HCl (Effexor Xr) 75 mg PO DAILY [facility] Last Admin: 09/16/18 09:46 Dose: Not Given Medical Necessity - Tobacco Use Smoking Status: Never smoker Assessment/Plan All Active Problems (Last Reviewed 09/13/18 @ 11:19 by Sharif Gurrola MD) Pneumothorax (Acute) Cystitis (Acute) Fall (Acute) Aspiration of food (Acute) Anemia due to blood loss, acute (Acute) Dehydration (Acute) FTT (failure to thrive) in adult (Acute) Lower GI bleed (Acute) Diverticulitis large intestine (Acute) 1. Acute metabolic encephalopathy due to UTI and aspiration pneumonia patient now NPO o/a of risk of aspiration; had Dobbhoff NG tube inserted today by general surgery on IV zosyn no leucocytosis; pulmonology on board general surgery on board. continue hydration with IVF 2.Right sided pneumothorax: CXR showed enlargement of pneumothorax; had larger chest tube inserted yesterday. management as per general surgery 3. Aspiration pneumonia: as under 1 4. UTI: as under 1. 5. Debility due to mechanical falls: fell at home, resulting in pneumothorax. PT/OT on board. on ibuprofen and tylenol for pain. 6. Non anion gap acidosis: bicarb has dropped to 14 today. ANion gap is 14. Will repeat bicarb to confirm drop as bicarb has been in 20s since admission, and there is no obvious pathology to explain sudden drop. 7. Parkinsons disease: on carbidopa, rivastigmine, rasagiline and Requip. to get meds via NG tube 8. Protein calorie malnutrition: BMI is only ~ 18. Nutrition on board. to start tube feeding today. On Jevity per nutrition recommendations 9. BPH: on flomax DVT prophylaxis: lovenox Code status: DNRCCA Prognosis: poor. Palliative care meeting with today. Code Visit Inpatient E&M: 11661 Subs Hosp L3
--- NOTE | 2018-09-17 11:47 | PN_ITS ---
Patient Problems: Active and Suspected Problems (Last Reviewed 09/13/18 @ 11:19 by Sharif Gurrola MD) Pneumothorax (Acute) Cystitis (Acute) Fall (Acute) Aspiration of food (Acute) Subjective: Patient seen and examined. He had Dobbhoff NG tube placement today. Chest tube was also changed to a bigger size yesterday. Patient still remains very lethargic but however his says he is able to answer questions when asked. Patient cannot verbalize but was able to check his head in response to questions and denied being in any pain or feeling short of breath. He also denied any chest pain, abdominal pain or diarrhea. Review of systems otherwise negative. Labs and vitals reviewed. Hospitalist had extensive discussion with about patient's prognosis and his debilitated state. was wondering if patient would be back to being able to eat a regular diet and ambulate with his walker. Hospitalist informed that in light of patient's advanced debility and chronic silent aspiration, he was at risk of aspiration pneumonia like he currently had and he would need a lot of therapy to even regain a semblance of ability to ambulate. Palliative care is meeting with today and was also open to hospice care and will discuss that with palliative care when they came in. Her long-term goal is to take patient back home possibly with hospice. Vitals/I&O's: Vital Signs Temp Pulse Resp BP Pulse Ox 97.8 F 58 L 18 195/94 H 96 09/17/18 11:32 09/17/18 11:32 09/17/18 11:32 09/17/18 11:32 09/17/18 11:32 Oxygen Flow Rate (L/min) [3] 15 Oxygen Flow Rate (L/min) [2] 15 Oxygen Flow Rate (L/min) [1 ( 15 Initial Baseline)] Oxygen Flow Rate (L/min) 15 Oxygen Delivery Method [3] Non-Rebreather Oxygen Delivery Method [2] Non-Rebreather Oxygen Delivery Method [1 ( Non-Rebreather Initial Baseline)] Oxygen Delivery Method Room Air Weight: 120 lb 5.958 oz Body Mass Index (BMI) 18.3 Finger Stick Blood Glucose 81 Intake and Output for Last 24 Hours 09/15/18 09/16/18 09/17/18 23:59 23:59 23:59 Intake Total 2081 1700 / 1700 Balance 2081 1700 / 1700 General: very lethargic HEENT: Atraumatic, PERRLA, EOMI, Normocephalic Oral: Dry Mucosa Neck: Supple, No JVD, Negative Carotid Bruits Lungs: - - significantly decreased breath sounds in right lung bruner; Right sided chest tube in place Cardiovascular: Regular rate, Regular Rhythm, Normal S1, Normal S2, No murmurs Abdomen: Bowel Sounds Present, Soft, Non Tender, Non-Distended, No Hepato- splenomegaly Extremities: No clubbing, No cyanosis, No edema, Capillary Refill Less than 3 Seconds Skin: No rashes, No breakdown Musculoskeletal: No Tenderness to Palpation of Joints or Extremities Neurological: - - very lethargic; Psych/Mental Status: - -lethargic Microbiology Past 72 Hours 09/14/18 09:24 Blood Culture (Wb) - Left Hand Blood Culture - Preliminary No growth in 48 hours. 09/14/18 09:20 Blood Culture (Wb) - Anticubital Left Blood Culture - Preliminary No growth in 48 hours. 09/12/18 18:30 Urine, Catheterized Urine Culture - Final Enterococcus faecalis Laboratory Results 09/15/18 11:25: MRSA (PCR) Negative 09/17/18 05:58: WBC 13.2 H, RBC 4.37 L, Hgb 13.5, Hct 38.6 L, MCV 88.3, MCH 30.9, MCHC 35.0, RDW 12.8, RDW Differential 41.3, Plt Count 52 L, MPV 9.4, Immature Gran % (Auto) 0.200, Neut % (Auto) 75.3 H, Lymph % (Auto) 14.9 L, [place] % (Auto) 6.5, Eos % (Auto) 2.6, Baso % (Auto) 0.5, Absolute Neuts (auto) 9.9 H, Absolute Lymphs (auto) 1.97, Total Counted Not Reportable, Differential Comment SCAN, Platelet Estimate MOD 09/17/18 05:58: Sodium 137, Potassium 3.4 L, Chloride 109 H, Carbon Dioxide 14.0 L, Anion Gap 14, BUN 14, Creatinine 0.55 L, Estim Creat Clear Calc 47.78, Est GFR (MDRD) Af Amer 184, Est GFR (MDRD) Non-Af 152, BUN/Creatinine Ratio 25.3 H, Glucose 68 L, Calcium 7.7 L Diagnostic Data Abdomen/Pelvis CT 09/12/18 17:59 IMPRESSION: 1. Large right pneumothorax partially visualized. 2. No abdominal ascites or pneumoperitoneum. 3. Moderate fecal retention. 4. Similar degenerative and operative changes of the lumbar spine. Lower thoracic and upper lumbar vertebral body compression fractures are similar since 2017. 5. Atherosclerosis. 6. Nonobstructing renal calculi. Electronically Signed: Flavio Jacome MD at 19:23 EDT , Service support , Brain CT 09/14/18 09:04 IMPRESSION: Chronic involutional changes of the brain. Stable examination. Electronically Signed: Corby Figueroa, at 11:19 EDT , Service support , Chest X-Ray 09/16/18 17:38 IMPRESSION: Tiny residual right pleural effusion and right lower lobe atelectasis status post chest tube placement. Nonvisualization of Dobbhoff tube status post removal Electronically Signed: Chucho Bartholomew MD at 18:38 EDT , Service support , Current Medications Acetaminophen (Tylenol) 500 mg PO Q6H PRN PRN PRN Reason: PAIN Carbidopa/Levodopa (Sinemet) 1 tablet PO TIDAC [facility] Last Admin: 09/17/18 06:17 Dose: Not Given Dextrose (D50w Syringe) 0 gm IV X1 PRN; Protocol PRN Reason: Hypoglycemia Enoxaparin Sodium (Lovenox) 40 mg SC DAILY@1000 [facility] Last Admin: 09/16/18 09:46 Dose: 40 mg Glucagon () 1 mg IM .X1 PRN PRN Reason: Hypoglycemia Glycopyrrolate (Robinul) 1 mg PO TID [facility] Last Admin: 09/17/18 05:10 Dose: Not Given Hydralazine HCl (Apresoline Iv) 10 mg IV Q6H PRN PRN PRN Reason: BLOOD PRESSURE ELEVATION Last Admin: 09/16/18 14:41 Dose: 10 mg Sodium Chloride () 250 mls @ 15 mls/hr IV .[id number] PRN PRN Reason: SALINE FLUSH Famotidine 20 mg/ Sodium (Chloride) 10 mls @ 300 mls/hr IV Q24 [facility] Last Admin: 09/16/18 09:45 Dose: 300 mls/hr Piperacillin Sod/Tazobactam (Sod 3.375 gm/ Sodium Chloride) 50 mls @ 12.5 mls/hr IV Q8 [facility] Last Admin: 09/17/18 05:08 Dose: 12.5 mls/hr Sodium Chloride () 1,000 mls @ 100 mls/hr IV .Q10H [facility] Last Admin: 09/17/18 11:23 Dose: 100 mls/hr Enteral Nutritional Formula (Jevity 1.5) 1,000 mls @ 20 mls/hr GT .Q48H [facility] Ketorolac Tromethamine (Toradol) 30 mg IV Q8H PRN PRN PRN Reason: PAIN Stop: 09/19/18 11:43 Last Admin: 09/17/18 00:19 Dose: 30 mg Melatonin (Melatonin) 3 mg PO QHS PRN PRN Reason: INSOMNIA [facility]ivit[facility] ([facility]ivitamin) [address] [facility] Last Admin: 09/16/18 08:34 Dose: Not Given Nutritional Formula (Lactose Free) (Ensure Enlive) 120 ml PO TID [facility] Last Admin: 09/17/18 05:09 Dose: Not Given Ondansetron HCl (Zofran) 4 mg IV Q8H PRN PRN PRN Reason: NAUSEA/VOMITING Pantoprazole Sodium (Protonix) 40 mg PO DAILY [facility] Last Admin: 09/16/18 09:46 Dose: Not Given Pramipexole Dihydrochloride (Mirapex) 0.5 mg PO TIDCM [facility] Last Admin: 09/16/18 17:58 Dose: Not Given Rivastigmine Tartrate (Exelon) 3 mg PO BIDCM [facility] Last Admin: 09/16/18 17:57 Dose: Not Given Sodium Chloride () 5 - 15 ml IV UD PRN PRN Reason: SALINE FLUSH Last Admin: 09/16/18 16:03 Dose: 10 ml Venlafaxine HCl (Effexor Xr) 75 mg PO DAILY [facility] Last Admin: 09/16/18 09:46 Dose: Not Given Medical Necessity - Tobacco Use Smoking Status: Never smoker Assessment/Plan All Active Problems (Last Reviewed 09/13/18 @ 11:19 by Sharif Gurrola MD) Pneumothorax (Acute) Cystitis (Acute) Fall (Acute) Aspiration of food (Acute) Anemia due to blood loss, acute (Acute) Dehydration (Acute) FTT (failure to thrive) in adult (Acute) Lower GI bleed (Acute) Diverticulitis large intestine (Acute) 1. Acute metabolic encephalopathy due to UTI and aspiration pneumonia * patient now NPO o/a of risk of aspiration; had Dobbhoff NG tube inserted today by general surgery * on IV zosyn * no leucocytosis; pulmonology on board * general surgery on board. * continue hydration with IVF * * 2.Right sided pneumothorax: * CXR showed enlargement of pneumothorax; had larger chest tube inserted yesterday. * management as per general surgery 3. Aspiration pneumonia: as under 1 4. UTI: as under 1. 5. Debility due to mechanical falls: * fell at home, resulting in pneumothorax. * PT/OT on board. on ibuprofen and tylenol for pain. * 6. Non anion gap acidosis: * bicarb has dropped to 14 today. ANion gap is 14. * Will repeat bicarb to confirm drop as bicarb has been in 20s since admission, and there is no obvious pathology to explain sudden drop. * 7. Parkinsons disease: on carbidopa, rivastigmine, rasagiline and Requip. to get meds via NG tube 8. Protein calorie malnutrition: BMI is only ~ 18. Nutrition on board. to start tube feeding today. On Jevity per nutrition recommendations 9. BPH: on flomax DVT prophylaxis: lovenox Code status: DNRCCA Prognosis: poor. Palliative care meeting with today. Code Visit Inpatient E&M: 49609 Subs Hosp L3
[2018-09-17] MEDS: Pantoprazole Sodium 40 MG Tablet PO (11:52)
[2018-09-17] MEDS: Multivitamins,Therapeutic Tablet 1 TABLET PO (11:52)
[2018-09-17] MEDS: Rivastigmine Tartrate 1.5 MG Capsule 3 MG PO ×2 (11:52→18:38)
[2018-09-17] MEDS: Carbidopa/Levodopa 25/100 Tablet PO ×2 (11:52→18:38)
[2018-09-17] MEDS: Venlafaxine XR 75 MG Capsule PO (11:52)
[2018-09-17] MEDS: Pramipexole Di-HCl 0.5 MG Tablet PO ×2 (11:53→18:38)
[2018-09-17] MEDS: hydrALAZINE 20 MG/ML Vial 10 MG IV (11:53)
[2018-09-17] MEDS: 0.9% NaCl Peripheral Flush Adult/Peds IV ×2 (11:54→12:18)
[2018-09-17] MEDS: Enoxaparin 40 MG/0.4 ML Syringe SC (11:55)
--- NOTE | 2018-09-17 12:46 | CASEMGMT ---
SW spoke w/Marika in TCU, pt has been approved by insurance to go to TCU. Precert would be good until Friday, if pt is still here Friday a new precert would be needed. SW spoke w/ in room, let her know that TCU did get approval for pt to go there when ready. states she spoke w/Dr. Gurrola who indicated to her that pt will not come back from this to how he was. states that how he is now, he would not be for TCU, she states, that's not what the second floor is for. states is meeting w/palliative care today. She may opt to take pt home. SW explained will continue to follow, and can check back with her to see if TCU is still the plan or if she wants to take pt home, also to see how the meeting w/palliative goes, if this would be helpful to have pt involved w/palliative as well. SW will continue to follow. YANE Clement
--- NOTE | 2018-09-17 13:33 | CPS ---
pt unable to do IPV @this time, cannot keep a seal.
[2018-09-17] MEDS: Glycopyrrolate 1 MG TABLET PO (15:26)
[2018-09-17] MEDS: Jevity 1.5 1,000 ML 20 ML GT (15:27)
[2018-09-17] MEDS: Acetaminophen 500 MG Tablet PO (18:38)
--- NOTE | 2018-09-17 21:15 | NURSING ---
Oral care given, lip moisturizer applied. Pt's and 2 visitors present in room.
[2018-09-18 02:30] VITALS: BP 146/84; PULSE 59; RESP 20; TEMP 36.6; O2SAT 100
[2018-09-18 06:00] LABS: Absolute Lymphocyte Count 1.61 X10^3/ul (0.83-4.51); Absolute Neutrophil Count 5.5 X10^3/uL (2.0-7.7); Basophil# 0.03 X10^3/uL; Basophil% 0.4 % (0-1); Eosinophil# 0.35 X10^3/uL; Eosinophils% 4.3 % (0-5); Hematocrit 36.5 % (40-54); Hemoglobin 12.8 g/dl (13.0-16.5); Lymphocyte # 1.61 X10^3/ul (4.0); Lymphocyte % 19.7 % (19-41); Mean Corp Hgb Conc 35.1 g/gl (32-36); Mean Corpuscular Volume 85.7 fL (80-94); Mean Platelet Vol. 8.8 fl (6.2-12.0); Monocyte# 0.64 X10^3/uL; Monocyte% 7.8 % (0-10); Neutrophil # 5.52 X10^3/uL (2.7-7.7); Neutrophil % 67.4 % (47-70); Platelet Count 259 K/mm3 (150-450); RBC Distribution Width CV 12.8 % (11.6-14.6); Red Blood Count 4.26 M/mm3 (4.6-6.2); White Blood Count 8.2 K/mm3 (4.4-11.0)
[2018-09-18 06:05] LABS: POSITIVE DIFFERENTIAL NO
[2018-09-18 06:06] LABS: POSITIVE COUNT NO; POSITIVE MORPHOLOGY NO
[2018-09-18 06:14] LABS: Anion Gap 7 (5-15); BUN 12 mg/dL (7-18); BUN/Creat Ratio 19.3 RATIO (10-20); Calcium,Total 7.9 mg/dL (8.5-10.1); Chloride 109 mmol/L (98-107); Creatinine, Serum 0.62 mg/dL (0.70-1.30); EST Glomerular Filtration Rate 133 mL/min (>60); Est Glom Filt Rate - Afr Amer 161 mL/min (>60); Estimated Creatinine Clearance 47.78 ml/min; Glucose 124 mg/dL (74-106); Potassium 3.5 mmol/L (3.5-5.1); Sodium Level 142 mmol/L (136-145)
--- NOTE | 2018-09-18 06:28 | PN_ITS ---
Patient Problems: Active and Suspected Problems (Last Reviewed 09/13/18 @ 11:19 by Sharif Gurrola MD) Pneumothorax (Acute) Cystitis (Acute) Fall (Acute) Aspiration of food (Acute) Subjective: The patient was seen and examined at the bedside this morning. Events from the last 24 hours have been reviewed. The patient is currently afebrile, hemodynamically stable and maintaining appropriate oxygen saturations on room air. The patient does seem a bit more alert this morning, but remains confused. I did call and personally speak with the patient's by phone this morning, who indicated to me that she did meet with palliative/hospice care services yesterday with her son. She states that she is hoping that the patient can go home with hospice care services in place. He has been tolerating tube feeds via his Dobbhoff feeding tube. Objective: The patient's most recent lab work, culture data and imaging studies have all been personally reviewed. - Physical Exam General: - - The patient is a bit more alert this morning. However, he is still significantly confused. HEENT: Atraumatic, PERRLA, Normocephalic Oral: Dry Mucosa Neck: Supple, No Nodes, Trachea Midline Lungs: Diminished, - - Chest tube remains in situ. No air leak noted in the atrium. Cardiovascular: Normal S1, Normal S2, No murmurs, Bradycardic Abdomen: Soft, Non Tender Extremities: No clubbing, No cyanosis, No edema Skin: - - No significant change from previous. Musculoskeletal: Cachexia, Muscle Wasting Lymphatic: No Cervical, Supraclavicular, or Inguinal Adenopathy Neurological: - - No focal neurological deficits. Psych/Mental Status: Flat Affect Vital Signs Temp Pulse Resp BP Pulse Ox 97.8 F 59 L 20 H 146/84 H 100 09/18/18 02:30 09/18/18 02:30 09/18/18 02:30 09/18/18 02:30 09/18/18 02:30 Oxygen Flow Rate (L/min) [3] 15 Oxygen Flow Rate (L/min) [2] 15 Oxygen Flow Rate (L/min) [1 ( 15 Initial Baseline)] Oxygen Flow Rate (L/min) 15 Oxygen Delivery Method [3] Non-Rebreather Oxygen Delivery Method [2] Non-Rebreather Oxygen Delivery Method [1 ( Non-Rebreather Initial Baseline)] Oxygen Delivery Method Room Air Weight: 120 lb 5.958 oz Body Mass Index (BMI) 18.3 Finger Stick Blood Glucose 81 Intake and Output for Last 24 Hours 09/16/18 09/17/18 09/18/18 23:59 23:59 23:59 Intake Total 2058 5087 / 5087 1350 / 1350 Output Total 40 / 40 20 / 20 Balance 2058 5047 / 5047 1330 / 1330 Microbiology Past 72 Hours 09/14/18 09:24 Blood Culture - Preliminary Blood Culture (Wb) - Left Hand No growth in 48 hours. 09/14/18 09:20 Blood Culture - Preliminary Blood Culture (Wb) - Anticubital Left No growth in 48 hours. Laboratory Tests Past 24 Hrs 09/17/18 09/17/18 09/17/18 05:58 05:58 12:00 WBC 13.2 H RBC 4.37 L Hgb 13.5 Hct 38.6 L MCV 88.3 MCH 30.9 MCHC 35.0 RDW 12.8 RDW Differential 41.3 Plt Count 52 L MPV 9.4 Immature Gran % (Auto) 0.200 Neut % (Auto) 75.3 H Lymph % (Auto) 14.9 L [place] % (Auto) 6.5 Eos % (Auto) 2.6 Baso % (Auto) 0.5 Absolute Neuts (auto) 9.9 H Absolute Lymphs (auto) 1.97 Total Counted Not Reportable Differential Comment SCAN Platelet Estimate MOD DEC Sodium 137 Potassium 3.4 L Chloride 109 H Carbon Dioxide 14.0 L 19.0 L Anion Gap 14 BUN 14 Creatinine 0.55 L Estim Creat Clear Calc 47.78 Est GFR (MDRD) Af Amer 184 Est GFR (MDRD) Non-Af 152 BUN/Creatinine Ratio 25.3 H Glucose 68 L Calcium 7.7 L 09/18/18 09/18/18 05:40 05:40 WBC 8.2 RBC 4.26 L Hgb 12.8 L Hct 36.5 L MCV 85.7 MCH 30.0 MCHC 35.1 RDW 12.8 RDW Differential 39.0 Plt Count 259 MPV 8.8 Immature Gran % (Auto) 0.400 Neut % (Auto) 67.4 Lymph % (Auto) 19.7 [place] % (Auto) 7.8 Eos % (Auto) 4.3 Baso % (Auto) 0.4 Absolute Neuts (auto) 5.5 Absolute Lymphs (auto) 1.61 Total Counted Not Reportable Differential Comment Platelet Estimate Sodium 142 Potassium 3.5 Chloride 109 H Carbon Dioxide 26.0 Anion Gap 7 BUN 12 Creatinine 0.62 L Estim Creat Clear Calc 47.78 Est GFR (MDRD) Af Amer 161 Est GFR (MDRD) Non-Af 133 BUN/Creatinine Ratio 19.3 Glucose 124 H Calcium 7.9 L Clinical Impression(s) from Imaging Studies Abdomen/Pelvis CT 09/12/18 17:59 IMPRESSION: 1. Large right pneumothorax partially visualized. 2. No abdominal ascites or pneumoperitoneum. 3. Moderate fecal retention. 4. Similar degenerative and operative changes of the lumbar spine. Lower thoracic and upper lumbar vertebral body compression fractures are similar since 2017. 5. Atherosclerosis. 6. Nonobstructing renal calculi. Electronically Signed: Flavio Jacome MD at 19:23 EDT , Service support , Brain CT 09/12/18 18:24 IMPRESSION: 1. No acute intracranial hemorrhage or mass effect. 2. Central parenchymal volume loss. White matter changes that are nonspecific but most commonly associated with chronic small vessel ischemic disease. Electronically Signed: Flavio Jacome MD at 19:18 EDT , Service support , Chest X-Ray 09/12/18 19:00 IMPRESSION: Stable cardiomegaly, hyperexpansion and hiatal hernia. No acute finding. Electronically Signed: Gaudencio Hearn MD at 19:21 EDT , Service support , ADDENDUM: 09/12/182000 Chest X-Ray 09/12/18 19:40 IMPRESSION: Placement of right thoracostomy tube with decrease in right pneumothorax. Electronically Signed: Gaudencio Hearn MD at 19:54 EDT , Service support , Chest X-Ray 09/13/18 05:50 IMPRESSION: small less than 1 cm residual right-sided pneumothorax which is smaller in size when compared to prior exam Stable right-sided chest tube Stimulator wires overlying the mid thoracic spine Prior compression fractures thoracic spine with prior kyphoplasty in thoracic dextroscoliosis unchanged Improved aeration with improving bibasilar subsegmental atelectasis Electronically Signed: Juan Pablo Mendoza, at 7:25 EDT Tel , Service support , Chest X-Ray 09/14/18 05:55 IMPRESSION: Minimal residual right apical pneumothorax. There has been no change. Electronically Signed: Corby Figueroa, at 13:05 EDT , Service support , Brain CT 09/14/18 09:04 IMPRESSION: Chronic involutional changes of the brain. Stable examination. Electronically Signed: Corby Figueroa, at 11:19 EDT , Service support , Chest X-Ray 09/14/18 12:00 IMPRESSION: Increase in size of the right apical pneumothorax. Mild left basilar atelectasis. Electronically Signed: Corby Figueroa, at 11:17 EDT , Service support , Chest X-Ray 09/14/18 22:43 IMPRESSION: Decrease in size of right-sided pneumothorax, no change in right chest tube position. If there is clinical concern for intrathoracic or malpositioned chest tube CT could be performed to evaluate position Mild developing right lower lobe infiltrate and/or subsegmental atelectasis Electronically Signed: Juan Pablo Mendoza, at 23:20 EDT Tel , Service support , Chest X-Ray 09/15/18 16:00 IMPRESSION: Increasing right hydropneumothorax with right lower lobe consolidation.. Probable small left effusion and left lower lobe atelectasis Electronically Signed: Chucho Bartholomew MD at 17:13 EDT , Service support , ADDENDUM: 09/15/18 1735 IMPRESSION: Increasing right hydropneumothorax with right lower lobe consolidation.. Probable small left effusion and left lower lobe atelectasis N.B. : The above information has been verbally conveyed by Chucho Bartholomew MD to Judy Sherman RN, on 09/15/2018 17:28:17 (ET). Electronically Signed: Chucho Bartholomew MD at 17:13 EDT , Service support , Chest X-Ray 09/16/18 09:54 IMPRESSION: No evidence of pneumothorax at this time. Persistent atelectasis and/or infiltrates at the lung bases worse on the right side with blunting of both costophrenic angles. Electronically Signed: Corby Figueroa, at 10:27 EDT , Service support , Chest X-Ray 09/16/18 16:44 IMPRESSION: Improvement in right pleural effusion status post chest tube placement. Dobbhoff tube is not clearly identified. Clinical correlation recommended and follow-up Electronically Signed: Chucho Bartholomew MD at 18:20 EDT , Service support , Chest X-Ray 09/16/18 17:38 IMPRESSION: Tiny residual right pleural effusion and right lower lobe atelectasis status post chest tube placement. Nonvisualization of Dobbhoff tube status post removal Electronically Signed: Chucho Bartholomew MD at 18:38 EDT , Service support , Medical Necessity - Tobacco Use Smoking Status: Never smoker Assessment/Plan All Active Problems (Last Reviewed 09/13/18 @ 11:19 by Sharif Gurrola MD) Pneumothorax (Acute) Cystitis (Acute) Fall (Acute) Aspiration of food (Acute) Anemia due to blood loss, acute (Acute) Dehydration (Acute) FTT (failure to thrive) in adult (Acute) Lower GI bleed (Acute) Diverticulitis large intestine (Acute) RECOMMENDATIONS: 1. Chest tube management per surgery. 2. Continue nutritional support through nasogastric tube. 3. Continue antibiotics as ordered. 4. Continue aspiration precautions and bronchopulmonary hygiene, as tolerated by the patient. 5. Avoid CPAP/BiPAP, given pneumothorax. IMPRESSIONS: 1. Right-sided pneumothorax following fall at home Continue management of chest tube per surgery recommendations. Avoid any form of noninvasive positive pressure ventilatory support. 2. Concerns for aspiration pneumonia Given the patient's history of chronic, silent aspiration and the radiographic findings noted on his most recent chest x-ray, clinical concern would be for aspiration pneumonia. Agree with broad-spectrum antibiotics as ordered. Continue aggressive bronchopulmonary hygiene, as tolerated by the patient. 3. Concerns for sleep apnea I did personally witness the patient experiencing multiple apneic events with sleep. Given the patient's Parkinson's disease, it is certainly possible that he has underlying sleep apnea. Nevertheless, in the setting of his current pneumothorax, would recommend avoiding positive pressure ventilatory support at this time. I would avoid sedating medications as well. 4. 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 I did refer him to speech therapy after that office evaluation. The patient was confirmed to be aspirating on a chronic basis. It was also recommended that he establish a relationship with palliative care. However, the patient's reported that they were unable to do so. From a big picture perspective, the patient has what appears to be end-stage Parkinson's disease with recurrent, silent aspiration and is severely debilitated. The patient's and son did meet with palliative/hospice care services yesterday. The patient's appears to be wishing to pursue home hospice care services. This note was generated with [employer] software. It may contain incorrect words, spelling, and punctuation that were not noted in checking the note before signing. Code Visit Inpatient E&M: 57080 Subs Hosp L2
--- NOTE | 2018-09-18 06:48 | NURSING ---
I was discussing this pt with Dr. Klein who was rounding while I was in the room. He stated that at this point he would continue to leave pt NPO until some things are figured out today.
[2018-09-18] MEDS: 0.9% Normal Saline 1,000 ML 100 ML IV ×2 (07:31→16:50)
[2018-09-18] MEDS: Pramipexole Di-HCl 0.5 MG Tablet PO ×2 (09:00→16:30)
[2018-09-18] MEDS: Carbidopa/Levodopa 25/100 Tablet PO ×2 (09:00→16:30)
[2018-09-18] MEDS: Rivastigmine Tartrate 1.5 MG Capsule 3 MG PO ×2 (09:00→16:30)
[2018-09-18 09:20] VITALS: BP 147/71; PULSE 56; RESP 16; TEMP 37.1; O2SAT 93
--- NOTE | 2018-09-18 09:41 | CASEMGMT ---
Addendum entered by Zandra Villar 09/18/18 10:47: ANNA spoke with Gail at [facility]. ANNA updated Gail that they are doing test today to determine if test tube can be taken out. ANNA informed Gail that per physician, once test tube is taken out then pt will be discharged home with Hospice. Gail states staff over the weekend will need to talk to the potato peeling machine operator at [facility] and ask to be transferred to radio station engineer [facility] Nurse and the nurse will be Ting. Gail also states that that Liaison over the weekend will be Michelle. Gail states that they have the equipment all ready for pt, they will just need updated once pt is discharged. ANNA placed a call to Marika in TCU, left message to inform her that pt will now be going home with Hospice and pt can be taken off TCU list. Green sheet on chart. Original Note: Social Work Note Physician updated this worker that pt's Harriet signed with Hospice and pt will be going home with Hospice services. ANNA met with pt and Harriet. Harriet confirms that she will be taking pt home with Hospice. Harriet states pt is not going to be able to walk again and that's not what the second floor is for. SW offered support to Harriet. ANNA informed Harriet that pt will be taken off TCU list then and whenever pt is medically cleared he will be going home with Hospice. Harriet states understanding. Green sheet on chart. Plan: Home with Hospice Zandra Villar SUPPORT SPECIALIST, LIDDING MACHINE OPERATOR
--- NOTE | 2018-09-18 10:11 | PCM.PN.HOSP ---
Patient Problems: Active and Suspected Problems (Last Reviewed 09/13/18 @ 11:19 by Sharif Gurrola MD) Pneumothorax (Acute) Cystitis (Acute) Fall (Acute) Aspiration of food (Acute) Subjective: Patient seen and examined. He had Dobhoff tube placed yesterday by general surgery and is on tube feeding now. is by his bedside. She informed me that she met with hospice care yesterday, and her plan is to send him home with home hospice after chest tube is taken out. Patient remains very frail and is unable to answer any questions. Labs and vitals reviewed. He is noted to have episodic asymptomatic bradycardia. Vitals/I&O's: Vital Signs Temp Pulse Resp BP Pulse Ox 98.8 F 56 L 16 147/71 H 93 09/18/18 09:20 09/18/18 09:20 09/18/18 09:20 09/18/18 09:20 09/18/18 09:20 Oxygen Flow Rate (L/min) [3] 15 Oxygen Flow Rate (L/min) [2] 15 Oxygen Flow Rate (L/min) [1 ( 15 Initial Baseline)] Oxygen Flow Rate (L/min) 15 Oxygen Delivery Method [3] Non-Rebreather Oxygen Delivery Method [2] Non-Rebreather Oxygen Delivery Method [1 ( Non-Rebreather Initial Baseline)] Oxygen Delivery Method Room Air Weight: 120 lb 5.958 oz Body Mass Index (BMI) 18.3 Finger Stick Blood Glucose 81 Intake and Output for Last 24 Hours 09/16/18 09/17/18 09/18/18 23:59 23:59 23:59 Intake Total 2058 5087 / 5087 1350 / 1350 Output Total 40 / 40 20 / 20 Balance 2058 5047 / 5047 1330 / 1330 General: very lethargic HEENT: Atraumatic, PERRLA, EOMI, Normocephalic. DObhoff tube in place, receiving tube feed through tube. Oral: Dry Mucosa Neck: Supple, No JVD, Negative Carotid Bruits Lungs: - - significantly decreased breath sounds in right lung bruner; Right sided chest tube in place Cardiovascular: Regular rate, Regular Rhythm, Normal S1, Normal S2, No murmurs Abdomen: Bowel Sounds Present, Soft, Non Tender, Non-Distended, No Hepato-splenomegaly Extremities: No clubbing, No cyanosis, No edema, Capillary Refill Less than 3 Seconds Skin: No rashes, No breakdown Musculoskeletal: No Tenderness to Palpation of Joints or Extremities Neurological: - - very lethargic; Psych/Mental Status: - -lethargic Microbiology Past 72 Hours 09/14/18 09:24 Blood Culture (Wb) - Left Hand Blood Culture - Preliminary No growth in 48 hours. 09/14/18 09:20 Blood Culture (Wb) - Anticubital Left Blood Culture - Preliminary No growth in 48 hours. Laboratory Results 09/17/18 12:00: Carbon Dioxide 19.0 L 09/18/18 05:40: WBC 8.2, RBC 4.26 L, Hgb 12.8 L, Hct 36.5 L, MCV 85.7, MCH 30.0, MCHC 35.1, RDW 12.8, RDW Differential 39.0, Plt Count 259, MPV 8.8, Immature Gran % (Auto) 0.400, Neut % (Auto) 67.4, Lymph % (Auto) 19.7, Menard % (Auto) 7.8, Eos % (Auto) 4.3, Baso % (Auto) 0.4, Absolute Neuts (auto) 5.5, Absolute Lymphs (auto) 1.61, Total Counted Not Reportable 09/18/18 05:40: Sodium 142, Potassium 3.5, Chloride 109 H, Carbon Dioxide 26.0, Anion Gap 7, BUN 12, Creatinine 0.62 L, Estim Creat Clear Calc 47.78, Est GFR (MDRD) Af Amer 161, Est GFR (MDRD) Non-Af 133, BUN/Creatinine Ratio 19.3, Glucose 124 H, Calcium 7.9 L Current Medications Acetaminophen (Tylenol) 500 mg PO Q6H PRN PRN PRN Reason: PAIN Last Admin: 09/17/18 18:38 Dose: 500 mg Carbidopa/Levodopa (Sinemet) 1 tablet PO TIDAC [facility] Last Admin: 09/18/18 09:00 Dose: 1 tablet Dextrose (D50w Syringe) 0 gm IV X1 PRN; Protocol PRN Reason: Hypoglycemia Enoxaparin Sodium (Lovenox) 40 mg SC DAILY@1000 [facility] Last Admin: 09/17/18 11:55 Dose: 40 mg Glucagon () 1 mg IM .X1 PRN PRN Reason: Hypoglycemia Glycopyrrolate (Robinul) 1 mg PO TID [facility] Last Admin: 09/18/18 05:32 Dose: Not Given Hydralazine HCl (Apresoline Iv) 10 mg IV Q6H PRN PRN PRN Reason: BLOOD PRESSURE ELEVATION Last Admin: 09/17/18 11:53 Dose: 10 mg Sodium Chloride () 250 mls @ 15 mls/hr IV .[id number] PRN PRN Reason: SALINE FLUSH Famotidine 20 mg/ Sodium (Chloride) 10 mls @ 300 mls/hr IV Q24 [facility] Last Admin: 09/17/18 11:54 Dose: 300 mls/hr Piperacillin Sod/Tazobactam (Sod 3.375 gm/ Sodium Chloride) 50 mls @ 12.5 mls/hr IV Q8 [facility] Last Admin: 09/18/18 06:48 Dose: 12.5 mls/hr Sodium Chloride () 1,000 mls @ 100 mls/hr IV .Q10H [facility] Last Admin: 09/18/18 07:31 Dose: 100 mls/hr Enteral Nutritional Formula (Jevity 1.5) 1,000 mls @ 20 mls/hr GT .Q48H [facility] Last Admin: 09/17/18 15:27 Dose: 20 mls/hr Ketorolac Tromethamine (Toradol) 30 mg IV Q8H PRN PRN PRN Reason: PAIN Stop: 09/19/18 11:43 Last Admin: 09/17/18 12:18 Dose: 30 mg Melatonin (Melatonin) 3 mg PO QHS PRN PRN Reason: INSOMNIA [facility]ivit[facility] ([facility]amin) [facility] Last Admin: 09/18/18 09:52 Dose: Not Given Nutritional Formula (Lactose Free) (Ensure Enlive) 120 ml PO TID [facility] Last Admin: 09/18/18 05:32 Dose: Not Given Ondansetron HCl (Zofran) 4 mg IV Q8H PRN PRN PRN Reason: NAUSEA/VOMITING Pantoprazole Sodium (Protonix) 40 mg PO DAILY [facility] Last Admin: 09/17/18 11:52 Dose: 40 mg Pramipexole Dihydrochloride (Mirapex) 0.5 mg PO TIDCM [facility] Last Admin: 09/18/18 09:00 Dose: 0.5 mg Rivastigmine Tartrate (Exelon) 3 mg PO BIDCM [facility] Last Admin: 09/18/18 09:00 Dose: 3 mg Sodium Chloride () 5 - 15 ml IV UD PRN PRN Reason: SALINE FLUSH Last Admin: 09/17/18 12:18 Dose: 10 ml Venlafaxine HCl (Effexor Xr) 75 mg PO DAILY [facility] Last Admin: 09/17/18 11:52 Dose: 75 mg Medical Necessity - Tobacco Use Smoking Status: Never smoker Assessment/Plan All Active Problems (Last Reviewed 09/13/18 @ 11:19 by Sharif Gurrola MD) Pneumothorax (Acute) Cystitis (Acute) Fall (Acute) Aspiration of food (Acute) Anemia due to blood loss, acute (Acute) Dehydration (Acute) FTT (failure to thrive) in adult (Acute) Lower GI bleed (Acute) Diverticulitis large intestine (Acute) 1. Acute metabolic encephalopathy due to UTI and aspiration pneumonia patient now NPO o/a of risk of aspiration; receiving tube feeding via Dobbhoff NG tube. on IV zosyn no leucocytosis; pulmonology on board general surgery on board. continue hydration with IVF 2.Right sided pneumothorax: CXR showed enlargement of pneumothorax; had larger chest tube inserted management as per general surgery 3. Aspiration pneumonia: as under 1 4. UTI: as under 1. 5. Debility due to mechanical falls: has history of multiple falls. PT/OT on board. on ibuprofen and tylenol for pain. 6. Non anion gap acidosis: resolved. Bicarb is 26 today. 7. Parkinsons disease: on carbidopa, rivastigmine, rasagiline and Requip. to get meds via NG tube 8. Protein calorie malnutrition: BMI is only ~ 18. Nutrition on board. On tube feeding with Jevity, as per nutrition. 9. BPH: on flomax DVT prophylaxis: lovenox Code status: DNRCCA Prognosis: poor. met with hospice team yesterday, and her plan is for him to go with home hospice once chest tube is out. Code Visit Inpatient E&M: 50796 Subs Hosp L3
--- NOTE | 2018-09-18 10:15 | PN_ITS ---
Patient Problems: Active and Suspected Problems (Last Reviewed 09/13/18 @ 11:19 by Sharif Gurrola MD) Pneumothorax (Acute) Cystitis (Acute) Fall (Acute) Aspiration of food (Acute) Subjective: Patient seen and examined. He had Dobhoff tube placed yesterday by general surgery and is on tube feeding now. is by his bedside. She informed me that she met with hospice care yesterday, and her plan is to send him home with home hospice after chest tube is taken out. Patient remains very frail and is unable to answer any questions. Labs and vitals reviewed. He is noted to have episodic asymptomatic bradycardia. Vitals/I&O's: Vital Signs Temp Pulse Resp BP Pulse Ox 98.8 F 56 L 16 147/71 H 93 09/18/18 09:20 09/18/18 09:20 09/18/18 09:20 09/18/18 09:20 09/18/18 09:20 Oxygen Flow Rate (L/min) [3] 15 Oxygen Flow Rate (L/min) [2] 15 Oxygen Flow Rate (L/min) [1 ( 15 Initial Baseline)] Oxygen Flow Rate (L/min) 15 Oxygen Delivery Method [3] Non-Rebreather Oxygen Delivery Method [2] Non-Rebreather Oxygen Delivery Method [1 ( Non-Rebreather Initial Baseline)] Oxygen Delivery Method Room Air Weight: 120 lb 5.958 oz Body Mass Index (BMI) 18.3 Finger Stick Blood Glucose 81 Intake and Output for Last 24 Hours 09/16/18 09/17/18 09/18/18 23:59 23:59 23:59 Intake Total 2058 5087 / 5087 1350 / 1350 Output Total 40 / 40 20 / 20 Balance 2058 5047 / 5047 1330 / 1330 General: very lethargic HEENT: Atraumatic, PERRLA, EOMI, Normocephalic. DObhoff tube in place, receiving tube feed through tube. Oral: Dry Mucosa Neck: Supple, No JVD, Negative Carotid Bruits Lungs: - - significantly decreased breath sounds in right lung bruner; Right sided chest tube in place Cardiovascular: Regular rate, Regular Rhythm, Normal S1, Normal S2, No murmurs Abdomen: Bowel Sounds Present, Soft, Non Tender, Non-Distended, No Hepato- splenomegaly Extremities: No clubbing, No cyanosis, No edema, Capillary Refill Less than 3 Seconds Skin: No rashes, No breakdown Musculoskeletal: No Tenderness to Palpation of Joints or Extremities Neurological: - - very lethargic; Psych/Mental Status: - -lethargic Microbiology Past 72 Hours 09/14/18 09:24 Blood Culture (Wb) - Left Hand Blood Culture - Preliminary No growth in 48 hours. 09/14/18 09:20 Blood Culture (Wb) - Anticubital Left Blood Culture - Preliminary No growth in 48 hours. Laboratory Results 09/17/18 12:00: Carbon Dioxide 19.0 L 09/18/18 05:40: WBC 8.2, RBC 4.26 L, Hgb 12.8 L, Hct 36.5 L, MCV 85.7, MCH 30.0, MCHC 35.1, RDW 12.8, RDW Differential 39.0, Plt Count 259, MPV 8.8, Immature Gran % (Auto) 0.400, Neut % (Auto) 67.4, Lymph % (Auto) 19.7, Burnett % (Auto) 7.8, Eos % (Auto) 4.3, Baso % (Auto) 0.4, Absolute Neuts (auto) 5.5, Absolute Lymphs (auto) 1.61, Total Counted Not Reportable 09/18/18 05:40: Sodium 142, Potassium 3.5, Chloride 109 H, Carbon Dioxide 26.0, Anion Gap 7, BUN 12, Creatinine 0.62 L, Estim Creat Clear Calc 47.78, Est GFR (MDRD) Af Amer 161, Est GFR (MDRD) Non-Af 133, BUN/Creatinine Ratio 19.3, Glucose 124 H, Calcium 7.9 L Current Medications Acetaminophen (Tylenol) 500 mg PO Q6H PRN PRN PRN Reason: PAIN Last Admin: 09/17/18 18:38 Dose: 500 mg Carbidopa/Levodopa (Sinemet) 1 tablet PO TIDAC [facility] Last Admin: 09/18/18 09:00 Dose: 1 tablet Dextrose (D50w Syringe) 0 gm IV X1 PRN; Protocol PRN Reason: Hypoglycemia Enoxaparin Sodium (Lovenox) 40 mg SC DAILY@1000 [facility] Last Admin: 09/17/18 11:55 Dose: 40 mg Glucagon () 1 mg IM .X1 PRN PRN Reason: Hypoglycemia Glycopyrrolate (Robinul) 1 mg PO TID [facility] Last Admin: 09/18/18 05:32 Dose: Not Given Hydralazine HCl (Apresoline Iv) 10 mg IV Q6H PRN PRN PRN Reason: BLOOD PRESSURE ELEVATION Last Admin: 09/17/18 11:53 Dose: 10 mg Sodium Chloride () 250 mls @ 15 mls/hr IV .[id number] PRN PRN Reason: SALINE FLUSH Famotidine 20 mg/ Sodium (Chloride) 10 mls @ 300 mls/hr IV Q24 [facility] Last Admin: 09/17/18 11:54 Dose: 300 mls/hr Piperacillin Sod/Tazobactam (Sod 3.375 gm/ Sodium Chloride) 50 mls @ 12.5 mls/hr IV Q8 [facility] Last Admin: 09/18/18 06:48 Dose: 12.5 mls/hr Sodium Chloride () 1,000 mls @ 100 mls/hr IV .Q10H [facility] Last Admin: 09/18/18 07:31 Dose: 100 mls/hr Enteral Nutritional Formula (Jevity 1.5) 1,000 mls @ 20 mls/hr GT .Q48H [facility] Last Admin: 09/17/18 15:27 Dose: 20 mls/hr Ketorolac Tromethamine (Toradol) 30 mg IV Q8H PRN PRN PRN Reason: PAIN Stop: 09/19/18 11:43 Last Admin: 09/17/18 12:18 Dose: 30 mg Melatonin (Melatonin) 3 mg PO QHS PRN PRN Reason: INSOMNIA Multivitamins (Multivitamin) [facility] Last Admin: 09/18/18 09:52 Dose: Not Given Nutritional Formula (Lactose Free) (Ensure Enlive) 120 ml PO TID [facility] Last Admin: 09/18/18 05:32 Dose: Not Given Ondansetron HCl (Zofran) 4 mg IV Q8H PRN PRN PRN Reason: NAUSEA/VOMITING Pantoprazole Sodium (Protonix) 40 mg PO DAILY [facility] Last Admin: 09/17/18 11:52 Dose: 40 mg Pramipexole Dihydrochloride (Mirapex) 0.5 mg PO TIDCM [facility] Last Admin: 09/18/18 09:00 Dose: 0.5 mg Rivastigmine Tartrate (Exelon) 3 mg PO BIDCM [facility] Last Admin: 09/18/18 09:00 Dose: 3 mg Sodium Chloride () 5 - 15 ml IV UD PRN PRN Reason: SALINE FLUSH Last Admin: 09/17/18 12:18 Dose: 10 ml Venlafaxine HCl (Effexor Xr) 75 mg PO DAILY [facility] Last Admin: 09/17/18 11:52 Dose: 75 mg Medical Necessity - Tobacco Use Smoking Status: Never smoker Assessment/Plan All Active Problems (Last Reviewed 09/13/18 @ 11:19 by Sharif Gurrola MD) Pneumothorax (Acute) Cystitis (Acute) Fall (Acute) Aspiration of food (Acute) Anemia due to blood loss, acute (Acute) Dehydration (Acute) FTT (failure to thrive) in adult (Acute) Lower GI bleed (Acute) Diverticulitis large intestine (Acute) 1. Acute metabolic encephalopathy due to UTI and aspiration pneumonia * patient now NPO o/a of risk of aspiration; receiving tube feeding via Dobbhoff NG tube. * on IV zosyn * no leucocytosis; pulmonology on board * general surgery on board. * continue hydration with IVF * * 2.Right sided pneumothorax: * CXR showed enlargement of pneumothorax; had larger chest tube inserted * management as per general surgery 3. Aspiration pneumonia: as under 1 4. UTI: as under 1. 5. Debility due to mechanical falls: * has history of multiple falls. * PT/OT on board. on ibuprofen and tylenol for pain. * 6. Non anion gap acidosis: * resolved. Bicarb is 26 today. * 7. Parkinsons disease: on carbidopa, rivastigmine, rasagiline and Requip. to get meds via NG tube 8. Protein calorie malnutrition: BMI is only ~ 18. Nutrition on board. On tube feeding with Jevity, as per nutrition. 9. BPH: on flomax DVT prophylaxis: lovenox Code status: DNRCCA Prognosis: poor. met with hospice team yesterday, and her plan is for him to go with home hospice once chest tube is out. Code Visit Inpatient E&M: 28064 Subs Hosp L3
--- NOTE | 2018-09-18 10:19 | RAD_ITS ---
STUDY: X-RAY CHEST REASON FOR EXAM: Male, 77 years old. Right-sided pneumothorax. TECHNIQUE: Single AP portable view of the chest. COMPARISON: Comparison is made with prior study dated September 16, 2018. FINDINGS: A right-sided chest tube is once again seen with the tip in the right apex. There is no evidence of pneumothorax. Stable mild increased markings at the lung bases. Blunting of both costophrenic angles. There is mild cardiac enlargement. Normal mediastinum and ashanti. Normal visualized pulmonary arteries. There is atherosclerotic calcification of the aortic arch with tortuosity. There are diffuse degenerative changes of the visualized thoracic spine. Dextroscoliosis. Normal visualized ribs, clavicles, and shoulders. A Dobbhoff feeding tube is seen partly coiled in a hiatal hernia. RAD/Chest 1 View (Portable) IMPRESSION: No evidence of pneumothorax. Residual mild increased markings at the left lung base with blunting of both costophrenic angles. Electronically Signed: Corby Figueroa, at 11:13 EDT , Service support ,
[2018-09-18] MEDS: Enoxaparin 40 MG/0.4 ML Syringe SC (12:22)
[2018-09-18 13:58] VITALS: BP 146/72; PULSE 58; RESP 16; TEMP 37.1; O2SAT 95
[2018-09-18] MEDS: Ketorolac 30 MG/ML Syringe IV (16:38)
[2018-09-18 20:00] VITALS: BP 170/78; PULSE 52; RESP 20; TEMP 36.4; O2SAT 96
[2018-09-18 20:31] VITALS: BP 170/78; PULSE 52
[2018-09-18] MEDS: hydrALAZINE 20 MG/ML Vial 10 MG IV (20:31)
[2018-09-18] MEDS: 0.9% NaCl Peripheral Flush Adult/Peds IV (20:31)
[2018-09-18] MEDS: Jevity 1.5 1,000 ML 20 ML GT (22:41)
[2018-09-18] MEDS: Acetaminophen 500 MG Tablet PO (23:01)
[2018-09-19] VITALS (7 sets, daily range): BP systolic 116–189; BP diastolic 63–91; PULSE 55–70; RESP 14–22; TEMP 36.6–37.1; O2SAT 98–99
[2018-09-19] MEDS: Jevity 1.5 1,000 ML 20 ML GT (00:08)
[2018-09-19] MEDS: 0.9% Normal Saline 1,000 ML 100 ML IV ×5 (03:35→22:47)
--- NOTE | 2018-09-19 05:55 | RAD_ITS ---
STUDY: X-RAY CHEST REASON FOR EXAM: Male, 77 years old. Pneumothorax TECHNIQUE: Frontal view COMPARISON: September 18, 2018 FINDINGS: Stable right chest tube. There is also a stable feeding tube looped within a hiatal hernia. The lungs are not fully expanded. Right basilar mild effusion/atelectasis. Basilar infiltrate cannot be excluded. Cardiomegaly. Normal mediastinum and ashanti. Normal visualized pulmonary arteries. Calcified aortic arch and descending thoracic aorta. Degenerative changes of the thoracic spine. Normal visualized ribs, clavicles, and shoulders. There is no demonstrated abnormality of the visualized soft tissue structures of the upper abdomen. RAD/Chest 1 View (Portable) IMPRESSION: Cardiomegaly. Mild effusion/atelectasis in the right lung base. Basilar infiltrates bilaterally cannot be excluded. Electronically Signed: Farhad Pisano DO at 8:20 EDT Tel [phone], Service support ,
--- NOTE | 2018-09-19 06:38 | PCM.PN.PUL ---
Patient Problems: Active and Suspected Problems (Last Reviewed 09/13/18 @ 11:19 by Sharif Gurrola MD) Pneumothorax (Acute) Cystitis (Acute) Fall (Acute) Aspiration of food (Acute) Subjective: The patient was seen and examined at the bedside this morning. Events from the last 24 hours have been reviewed. The patient is currently afebrile, hemodynamically stable and maintaining appropriate oxygen saturations on room air. No air leak noted today. The patient remains lethargic. Objective: The patient's most recent lab work, culture data and imaging studies have all been personally reviewed. - Physical Exam General: No apparent distress, Lethargic HEENT: Atraumatic, PERRLA, Normocephalic, - - Dobbhoff feeding tube remains in place Oral: Dry Mucosa Neck: Supple, No Nodes, Trachea Midline Lungs: Diminished, - - Right-sided chest tube remains in place. No air leak noted in the atrium. Cardiovascular: Regular rate, Regular Rhythm, Normal S1, Normal S2, No murmurs Abdomen: Bowel Sounds Present, Soft, Non Tender Extremities: No clubbing, No cyanosis, No edema Skin: No breakdown Musculoskeletal: Cachexia, Muscle Wasting Lymphatic: No Cervical, Supraclavicular, or Inguinal Adenopathy Neurological: - - No focal neurological deficits. Vital Signs Temp Pulse Resp BP Pulse Ox 98.7 F 70 14 116/63 99 09/19/18 02:00 09/19/18 02:00 09/19/18 02:00 09/19/18 02:00 09/19/18 02:00 Oxygen Flow Rate (L/min) [3] 15 Oxygen Flow Rate (L/min) [2] 15 Oxygen Flow Rate (L/min) [1 ( 15 Initial Baseline)] Oxygen Flow Rate (L/min) 15 Oxygen Delivery Method [3] Non-Rebreather Oxygen Delivery Method [2] Non-Rebreather Oxygen Delivery Method [1 ( Non-Rebreather Initial Baseline)] Oxygen Delivery Method Room Air Weight: 120 lb 5.958 oz Body Mass Index (BMI) 18.3 Finger Stick Blood Glucose 81 Intake and Output for Last 24 Hours 09/17/18 09/18/18 09/19/18 23:59 23:59 23:59 Intake Total 5087 / 5087 1909 / 1909 2832 / 2832 Output Total 40 / 40 35 / 35 Balance 5047 / 5047 1874 / 1874 2832 / 2832 Microbiology Past 72 Hours 09/14/18 09:24 Blood Culture - Preliminary Blood Culture (Wb) - Left Hand No growth in 48 hours. 09/14/18 09:20 Blood Culture - Preliminary Blood Culture (Wb) - Anticubital Left No growth in 48 hours. Labs (Last 48 Hours) 09/17/18 09/17/18 09/17/18 05:58 05:58 12:00 WBC RBC Hgb Hct MCV MCH MCHC RDW RDW Differential Plt Count MPV Immature Gran % (Auto) Neut % (Auto) Lymph % (Auto) [place] % (Auto) Eos % (Auto) Baso % (Auto) Absolute Neuts (auto) Absolute Lymphs (auto) Total Counted Not Reportable Differential Comment SCAN Platelet Estimate MOD DEC Sodium 137 Potassium 3.4 L Chloride 109 H Carbon Dioxide 14.0 L 19.0 L Anion Gap 14 BUN 14 Creatinine 0.55 L Estim Creat Clear Calc 47.78 Est GFR (MDRD) Af Amer 184 Est GFR (MDRD) Non-Af 152 BUN/Creatinine Ratio 25.3 H Glucose 68 L Calcium 7.7 L 09/18/18 09/18/18 05:40 05:40 WBC 8.2 RBC 4.26 L Hgb 12.8 L Hct 36.5 L MCV 85.7 MCH 30.0 MCHC 35.1 RDW 12.8 RDW Differential 39.0 Plt Count 259 MPV 8.8 Immature Gran % (Auto) 0.400 Neut % (Auto) 67.4 Lymph % (Auto) 19.7 [place] % (Auto) 7.8 Eos % (Auto) 4.3 Baso % (Auto) 0.4 Absolute Neuts (auto) 5.5 Absolute Lymphs (auto) 1.61 Total Counted Not Reportable Differential Comment Platelet Estimate Sodium 142 Potassium 3.5 Chloride 109 H Carbon Dioxide 26.0 Anion Gap 7 BUN 12 Creatinine 0.62 L Estim Creat Clear Calc 47.78 Est GFR (MDRD) Af Amer 161 Est GFR (MDRD) Non-Af 133 BUN/Creatinine Ratio 19.3 Glucose 124 H Calcium 7.9 L Clinical Impression(s) from Imaging Studies Abdomen/Pelvis CT 09/12/18 17:59 IMPRESSION: 1. Large right pneumothorax partially visualized. 2. No abdominal ascites or pneumoperitoneum. 3. Moderate fecal retention. 4. Similar degenerative and operative changes of the lumbar spine. Lower thoracic and upper lumbar vertebral body compression fractures are similar since 2017. 5. Atherosclerosis. 6. Nonobstructing renal calculi. Electronically Signed: Flavio Jacome MD at 19:23 EDT , Service support , Brain CT 09/12/18 18:24 IMPRESSION: 1. No acute intracranial hemorrhage or mass effect. 2. Central parenchymal volume loss. White matter changes that are nonspecific but most commonly associated with chronic small vessel ischemic disease. Electronically Signed: Flavio Jacome MD at 19:18 EDT , Service support , Chest X-Ray 09/12/18 19:00 IMPRESSION: Stable cardiomegaly, hyperexpansion and hiatal hernia. No acute finding. Electronically Signed: Gaudencio Hearn MD at 19:21 EDT , Service support , ADDENDUM: 09/12/182000 Chest X-Ray 09/12/18 19:40 IMPRESSION: Placement of right thoracostomy tube with decrease in right pneumothorax. Electronically Signed: Gaudencio Hearn MD at 19:54 EDT , Service support , Chest X-Ray 09/13/18 05:50 IMPRESSION: small less than 1 cm residual right-sided pneumothorax which is smaller in size when compared to prior exam Stable right-sided chest tube Stimulator wires overlying the mid thoracic spine Prior compression fractures thoracic spine with prior kyphoplasty in thoracic dextroscoliosis unchanged Improved aeration with improving bibasilar subsegmental atelectasis Electronically Signed: Juan Pablo Mendoza, at 7:25 EDT Tel , Service support , Chest X-Ray 09/14/18 05:55 IMPRESSION: Minimal residual right apical pneumothorax. There has been no change. Electronically Signed: Corby Armstrongcurtis, at 13:05 EDT , Service support , Brain CT 09/14/18 09:04 IMPRESSION: Chronic involutional changes of the brain. Stable examination. Electronically Signed: Corby Henry, at 11:19 EDT , Service support , Chest X-Ray 09/14/18 12:00 IMPRESSION: Increase in size of the right apical pneumothorax. Mild left basilar atelectasis. Electronically Signed: Corby Henry, at 11:17 EDT , Service support , Chest X-Ray 09/14/18 22:43 IMPRESSION: Decrease in size of right-sided pneumothorax, no change in right chest tube position. If there is clinical concern for intrathoracic or malpositioned chest tube CT could be performed to evaluate position Mild developing right lower lobe infiltrate and/or subsegmental atelectasis Electronically Signed: Juan Pablo Mendoza, at 23:20 EDT Tel , Service support , Chest X-Ray 09/15/18 16:00 IMPRESSION: Increasing right hydropneumothorax with right lower lobe consolidation.. Probable small left effusion and left lower lobe atelectasis Electronically Signed: Chucho Bartholomew MD at 17:13 EDT , Service support , ADDENDUM: 09/15/18 5025 IMPRESSION: Increasing right hydropneumothorax with right lower lobe consolidation.. Probable small left effusion and left lower lobe atelectasis N.B. : The above information has been verbally conveyed by Chucho Bartholomew MD to Judy Sherman RN, on 09/15/2018 17:28:17 (ET). Electronically Signed: Chucho Bartholomew MD at 17:13 EDT , Service support , Chest X-Ray 09/16/18 09:54 IMPRESSION: No evidence of pneumothorax at this time. Persistent atelectasis and/or infiltrates at the lung bases worse on the right side with blunting of both costophrenic angles. Electronically Signed: Corby Figueroa, at 10:27 EDT , Service support , Chest X-Ray 09/16/18 16:44 IMPRESSION: Improvement in right pleural effusion status post chest tube placement. Dobbhoff tube is not clearly identified. Clinical correlation recommended and follow-up Electronically Signed: Chucho Bartholomew MD at 18:20 EDT , Service support , Chest X-Ray 09/16/18 17:38 IMPRESSION: Tiny residual right pleural effusion and right lower lobe atelectasis status post chest tube placement. Nonvisualization of Dobbhoff tube status post removal Electronically Signed: Chucho Bartholomew MD at 18:38 EDT , Service support , Chest X-Ray 09/18/18 10:19 IMPRESSION: No evidence of pneumothorax. Residual mild increased markings at the left lung base with blunting of both costophrenic angles. Electronically Signed: Corby Figueroa, at 11:13 EDT , Service support , Medical Necessity - Tobacco Use Smoking Status: Never smoker Assessment/Plan All Active Problems (Last Reviewed 09/13/18 @ 11:19 by Sharif Gurrola MD) Pneumothorax (Acute) Cystitis (Acute) Fall (Acute) Aspiration of food (Acute) Anemia due to blood loss, acute (Acute) Dehydration (Acute) FTT (failure to thrive) in adult (Acute) Lower GI bleed (Acute) Diverticulitis large intestine (Acute) RECOMMENDATIONS: 1. Chest tube management per surgery. 2. Continue nutritional support as tolerated. 3. Continue antibiotics as ordered. 4. Continue aspiration precautions and bronchopulmonary hygiene, as tolerated by the patient. 5. Avoid CPAP/BiPAP, given pneumothorax. IMPRESSIONS: 1. Right-sided pneumothorax following fall at home Continue management of chest tube per surgery recommendations. Avoid any form of noninvasive positive pressure ventilatory support. 2. Concerns for aspiration pneumonia Given the patient's history of chronic, silent aspiration and the radiographic findings noted on his most recent chest x-ray, clinical concern would be for aspiration pneumonia. Agree with broad-spectrum antibiotics as ordered. Continue aggressive bronchopulmonary hygiene, as tolerated by the patient. 3. Concerns for sleep apnea I did personally witness the patient experiencing multiple apneic events with sleep. Given the patient's Parkinson's disease, it is certainly possible that he has underlying sleep apnea. Nevertheless, in the setting of his current pneumothorax, would recommend avoiding positive pressure ventilatory support at this time. I would avoid sedating medications as well. 4. 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 I did refer him to speech therapy after that office evaluation. The patient was confirmed to be aspirating on a chronic basis. It was also recommended that he establish a relationship with palliative care. However, the patient's reported that they were unable to do so. From a big picture perspective, the patient has what appears to be end-stage Parkinson's disease with recurrent, silent aspiration and is severely debilitated. The patient's and son did meet with palliative/hospice care services yesterday. The patient's appears to be wishing to pursue home hospice care services. This note was generated with [employer] studioation software. It may contain incorrect words, spelling, and punctuation that were not noted in checking the note before signing. DISPOSITION: Given the plans to pursue hospice care services upon removal of the chest tube, will sign off. Please call with any additional questions. Code Visit Inpatient E&M: 01016 Subs Hosp L2
[2018-09-19] MEDS: Glycopyrrolate 1 MG TABLET GT ×3 (07:09→22:46)
[2018-09-19] MEDS: Ketorolac 30 MG/ML Syringe IV (07:13)
[2018-09-19] MEDS: 0.9% NaCl Peripheral Flush Adult/Peds IV ×3 (07:14→20:31)
[2018-09-19] MEDS: Carbidopa/Levodopa 25/100 Tablet NG ×3 (07:20→18:16)
[2018-09-19 08:04] LABS: Basophil# 0.03 X10^3/uL; Basophil% 0.3 % (0-1); Eosinophil# 0.31 X10^3/uL; Eosinophils% 3.4 % (0-5); Hematocrit 36.3 % (40-54); Hemoglobin 12.9 g/dl (13.0-16.5); Lymphocyte % 21.7 % (19-41); Mean Corp Hgb Conc 35.5 g/gl (32-36); Mean Corpuscular Hgb 30.6 pg (27.0-32.0); Mean Platelet Vol. 9.1 fl (6.2-12.0); Monocyte# 0.84 X10^3/uL; Monocyte% 9.1 % (0-10); Neutrophil % 65.3 % (47-70); Platelet Count 154 K/mm3 (150-450); RBC Distribution Width CV 13.2 % (11.6-14.6); RBC Distribution Width SD 41.3 fl (35.1-43.9); Red Blood Count 4.22 M/mm3 (4.6-6.2); White Blood Count 9.2 K/mm3 (4.4-11.0)
[2018-09-19 08:09] LABS: POSITIVE COUNT NO; POSITIVE DIFFERENTIAL NO; POSITIVE MORPHOLOGY NO
[2018-09-19 08:20] LABS: Anion Gap 6 (5-15); BUN 8 mg/dL (7-18); BUN/Creat Ratio 14.3 RATIO (10-20); Calcium,Total 7.4 mg/dL (8.5-10.1); Chloride 113 mmol/L (98-107); Creatinine, Serum 0.56 mg/dL (0.70-1.30); EST Glomerular Filtration Rate 150 mL/min (>60); Est Glom Filt Rate - Afr Amer 181 mL/min (>60); Estimated Creatinine Clearance 47.78 ml/min; Glucose 92 mg/dL (74-106); Potassium 3.5 mmol/L (3.5-5.1); Sodium Level 138 mmol/L (136-145)
--- NOTE | 2018-09-19 08:27 | PN.SURG_ITS ---
Patient Problems: Active and Suspected Problems (Last Reviewed 09/13/18 @ 11:19 by Sharif Gurrola MD) Pneumothorax (Acute) Cystitis (Acute) Fall (Acute) Aspiration of food (Acute) Subjective: Not tolerating his tube feeds well at all. In reviewing his chest x-ray I really do not think his Dobbhoff feeding tube is in the duodenum anymore I think it is come out. No air leak is identified today. Objective: No air leak is identified. - Physical Exam Vital Signs Temp Pulse Resp BP Pulse Ox 98.7 F 70 14 116/63 99 09/19/18 02:00 09/19/18 02:00 09/19/18 02:00 09/19/18 02:00 09/19/18 02:00 Oxygen Flow Rate (L/min) [3] 15 Oxygen Flow Rate (L/min) [2] 15 Oxygen Flow Rate (L/min) [1 ( 15 Initial Baseline)] Oxygen Flow Rate (L/min) 15 Oxygen Delivery Method [3] Non-Rebreather Oxygen Delivery Method [2] Non-Rebreather Oxygen Delivery Method [1 ( Non-Rebreather Initial Baseline)] Oxygen Delivery Method Room Air Weight: 120 lb 5.958 oz Body Mass Index (BMI) 18.3 Finger Stick Blood Glucose 81 Intake and Output for Last 24 Hours 09/17/18 09/18/18 09/19/18 23:59 23:59 23:59 Intake Total 5087 / 5087 1909 / 1909 4286 / 4286 Output Total 40 / 40 35 / 35 50 / 50 Balance 5047 / 5047 1874 / 1874 4236 / 4236 Microbiology Past 72 Hours 09/14/18 09:24 Blood Culture - Preliminary Blood Culture (Wb) - Left Hand No growth in 48 hours. 09/14/18 09:20 Blood Culture - Preliminary Blood Culture (Wb) - Anticubital Left No growth in 48 hours. Laboratory Tests Past 24 Hrs 09/19/18 09/19/18 07:41 07:41 WBC 9.2 RBC 4.22 L Hgb 12.9 L Hct 36.3 L MCV 86.0 MCH 30.6 MCHC 35.5 RDW 13.2 RDW Differential 41.3 Plt Count 154 MPV 9.1 Immature Gran % (Auto) 0.200 Neut % (Auto) 65.3 Lymph % (Auto) 21.7 [place] % (Auto) 9.1 Eos % (Auto) 3.4 Baso % (Auto) 0.3 Absolute Neuts (auto) 6.0 Absolute Lymphs (auto) 2.00 Total Counted Not Reportable Sodium 138 Potassium 3.5 Chloride 113 H Carbon Dioxide 19.0 L Anion Gap 6 BUN 8 Creatinine 0.56 L Estim Creat Clear Calc 47.78 Est GFR (MDRD) Af Amer 181 Est GFR (MDRD) Non-Af 150 BUN/Creatinine Ratio 14.3 Glucose 92 Calcium 7.4 L Medical Necessity - Tobacco Use Smoking Status: Never smoker Assessment/Plan All Active Problems (Last Reviewed 09/13/18 @ 11:19 by Sharif Gurrola MD) Pneumothorax (Acute) Cystitis (Acute) Fall (Acute) Aspiration of food (Acute) Anemia due to blood loss, acute (Acute) Dehydration (Acute) FTT (failure to thrive) in adult (Acute) Lower GI bleed (Acute) Diverticulitis large intestine (Acute) We will keep the patient to wall suction today. [facility] Check a chest x-ray in the morning on Friday to see if we will be able to remove the chest tube.
--- NOTE | 2018-09-19 09:03 | RAD_ITS ---
STUDY: X-RAY - ABDOMEN/PELVIS REASON FOR EXAM: Male, 77 years old. Dobbhoff placement TECHNIQUE: 2 views COMPARISON: None. FINDINGS: Possible right pleural effusion. Right chest tube is noted. There is an unremarkable bowel gas pattern. There is no demonstrated free abdominal air. The tube is noted likely in the distal duodenal loop. The catheter also forms a loop within a hiatal hernia. Normal soft tissue structures. Degenerative vertebral changes. Mild compression of mid and lower dorsal segments. There is a previous vertebroplasty of a lower thoracic body. Spinal stimulator is noted. RAD/Abdomen Single View IMPRESSION: Feeding tube with tip in the distal duodenum. The catheter also forms a loop in a hiatal hernia. Electronically Signed: Farhad Pisano DO at 9:48 EDT Tel [phone], Service support ,
[2018-09-19] MEDS: Pramipexole Di-HCl 0.5 MG Tablet GT ×3 (09:45→18:16)
[2018-09-19] MEDS: Multivitamins,Therapeutic Tablet 1 TABLET NG (09:49)
[2018-09-19] MEDS: Rivastigmine Tartrate 1.5 MG Capsule 3 MG NG ×2 (09:49→18:17)
[2018-09-19] MEDS: Venlafaxine XR 75 MG Capsule PO (09:50)
[2018-09-19] MEDS: Enoxaparin 40 MG/0.4 ML Syringe SC (09:50)
[2018-09-19] MEDS: Lansoprazole 15 MG Capsule.DR 30 MG NG (09:59)
--- NOTE | 2018-09-19 11:18 | PCM.PN.HOSP ---
Patient Problems: Active and Suspected Problems (Last Reviewed 09/13/18 @ 11:19 by Sharif Gurrola MD) Pneumothorax (Acute) Cystitis (Acute) Fall (Acute) Aspiration of food (Acute) Subjective: Patient seen and examined. He remains very lethargic and weak and unable to respond to review of systems. According to his nurse, he was noted to be not tolerating tube feeds very well and this has been stopped. Labs and vitals reviewed. Chest x-ray done today showed cardiomegaly with mild effusion and atelectasis in the right lower lung base. Lungs are not fully expanded. Basilar infiltrates bilaterally cannot be excluded per x-ray. KUB showed feeding tube with tip in the distal duodenal with catheter forming a loop in a hiatal hernia. Vitals/I&O's: Vital Signs Temp Pulse Resp BP Pulse Ox 98.2 F 66 22 H 143/79 H 99 09/19/18 08:39 09/19/18 08:39 09/19/18 08:39 09/19/18 08:39 09/19/18 08:39 Oxygen Flow Rate (L/min) [3] 15 Oxygen Flow Rate (L/min) [2] 15 Oxygen Flow Rate (L/min) [1 ( 15 Initial Baseline)] Oxygen Flow Rate (L/min) 15 Oxygen Delivery Method [3] Non-Rebreather Oxygen Delivery Method [2] Non-Rebreather Oxygen Delivery Method [1 ( Non-Rebreather Initial Baseline)] Oxygen Delivery Method Room Air Weight: 120 lb 5.958 oz Body Mass Index (BMI) 18.3 Finger Stick Blood Glucose 81 Intake and Output for Last 24 Hours 09/17/18 09/18/18 09/19/18 23:59 23:59 23:59 Intake Total 5087 / 5087 1909 / 1909 4286 / 4286 Output Total 40 / 40 35 / 35 50 / 50 Balance 5047 / 5047 1874 / 1874 4236 / 4236 General: very lethargic and frail HEENT: Atraumatic, PERRLA, EOMI, Normocephalic. DObhoff tube in place, receiving tube feed through tube. Oral: Dry Mucosa Neck: Supple, No JVD, Negative Carotid Bruits Lungs: - - significantly decreased breath sounds in right lung bruner; Right sided chest tube in place Cardiovascular: Regular rate, Regular Rhythm, Normal S1, Normal S2, No murmurs Abdomen: Bowel Sounds Present, Soft, Non Tender, Non-Distended, No Hepato-splenomegaly Extremities: No clubbing, No cyanosis, No edema, Capillary Refill Less than 3 Seconds Skin: No rashes, No breakdown Musculoskeletal: No Tenderness to Palpation of Joints or Extremities Neurological: - - very lethargic; Psych/Mental Status: - -lethargic Microbiology Past 72 Hours 09/14/18 09:24 Blood Culture (Wb) - Left Hand Blood Culture - Preliminary No growth in 48 hours. 09/14/18 09:20 Blood Culture (Wb) - Anticubital Left Blood Culture - Preliminary No growth in 48 hours. Laboratory Results 09/19/18 07:41: WBC 9.2, RBC 4.22 L, Hgb 12.9 L, Hct 36.3 L, MCV 86.0, MCH 30.6, MCHC 35.5, RDW 13.2, RDW Differential 41.3, Plt Count 154, MPV 9.1, Immature Gran % (Auto) 0.200, Neut % (Auto) 65.3, Lymph % (Auto) 21.7, [place] % (Auto) 9.1, Eos % (Auto) 3.4, Baso % (Auto) 0.3, Absolute Neuts (auto) 6.0, Absolute Lymphs (auto) 2.00, Total Counted Not Reportable 09/19/18 07:41: Sodium 138, Potassium 3.5, Chloride 113 H, Carbon Dioxide 19.0 L, Anion Gap 6, BUN 8, Creatinine 0.56 L, Estim Creat Clear Calc 47.78, Est GFR (MDRD) Af Amer 181, Est GFR (MDRD) Non-Af 150, BUN/Creatinine Ratio 14.3, Glucose 92, Calcium 7.4 L Current Medications Acetaminophen (Tylenol Liquid) 500 mg NG Q6H PRN PRN PRN Reason: PAIN Carbidopa/Levodopa (Sinemet) 1 tablet NG TIDAC [facility] Last Admin: 09/19/18 07:20 Dose: 1 tablet Dextrose (D50w Syringe) 0 gm IV X1 PRN; Protocol PRN Reason: Hypoglycemia Enoxaparin Sodium (Lovenox) 40 mg SC DAILY@1000 SAIRA Last Admin: 09/19/18 09:50 Dose: 40 mg Glucagon () 1 mg IM .X1 PRN PRN Reason: Hypoglycemia Glycopyrrolate (Robinul) 1 mg GT TID [facility] Last Admin: 09/19/18 07:09 Dose: 1 mg Hydralazine HCl (Apresoline Iv) 10 mg IV Q6H PRN PRN PRN Reason: BLOOD PRESSURE ELEVATION Last Admin: 09/18/18 20:31 Dose: 10 mg Sodium Chloride () 250 mls @ 15 mls/hr IV .[id number] PRN PRN Reason: SALINE FLUSH Famotidine 20 mg/ Sodium (Chloride) 10 mls @ 300 mls/hr IV Q24 [facility] Last Admin: 09/19/18 09:58 Dose: 300 mls/hr Piperacillin Sod/Tazobactam (Sod 3.375 gm/ Sodium Chloride) 50 mls @ 12.5 mls/hr IV Q8 [facility] Last Admin: 09/19/18 07:06 Dose: 12.5 mls/hr Sodium Chloride () 1,000 mls @ 100 mls/hr IV .Q10H [facility] Last Admin: 09/19/18 03:35 Dose: 100 mls/hr Enteral Nutritional Formula (Jevity 1.5) 1,000 mls @ 20 mls/hr GT .Q48H [facility] Last Admin: 09/19/18 00:08 Dose: 20 mls/hr Ketorolac Tromethamine (Toradol) 30 mg IV Q8H PRN PRN PRN Reason: PAIN Stop: 09/19/18 11:43 Last Admin: 09/19/18 07:13 Dose: 30 mg Lansoprazole (Lansoprazole) 30 mg NG DAILY [facility] Last Admin: 09/19/18 09:59 Dose: 30 mg Melatonin (Melatonin) 3 mg NG QHS PRN PRN Reason: INSOMNIA Multivitamins (Multivitamin) 1 tablet NG DAILYCM [facility] Last Admin: 09/19/18 09:49 Dose: 1 tablet Nutritional Formula (Lactose Free) (Ensure Enlive) 120 ml PO TID [facility] Last Admin: 09/19/18 07:28 Dose: Not Given Ondansetron HCl (Zofran) 4 mg IV Q8H PRN PRN PRN Reason: NAUSEA/VOMITING Pramipexole Dihydrochloride (Mirapex) 0.5 mg GT TIDCM [facility] Last Admin: 09/19/18 09:45 Dose: 0.5 mg Rivastigmine Tartrate (Exelon) 3 mg NG BIDCM [facility] Last Admin: 09/19/18 09:49 Dose: 3 mg Sodium Chloride () 5 - 15 ml IV UD PRN PRN Reason: SALINE FLUSH Last Admin: 09/19/18 09:59 Dose: 10 ml Venlafaxine HCl (Effexor Xr) 75 mg PO DAILY [facility] Last Admin: 09/19/18 09:50 Dose: 75 mg Medical Necessity - Tobacco Use Smoking Status: Never smoker Assessment/Plan All Active Problems (Last Reviewed 09/13/18 @ 11:19 by Sharif Gurrola MD) Pneumothorax (Acute) Cystitis (Acute) Fall (Acute) Aspiration of food (Acute) Anemia due to blood loss, acute (Acute) Dehydration (Acute) FTT (failure to thrive) in adult (Acute) Lower GI bleed (Acute) Diverticulitis large intestine (Acute) 1. Acute metabolic encephalopathy due to UTI and aspiration pneumonia patient was not tolerating tube feeds well. CXR repeated today shows bibasilar infiltrates continue IV zosyn. Tube feed stopped now. on IV zosyn no leucocytosis; pulmonology on board general surgery on board. aggressive bronchopulmonary hygiene 2.Right sided pneumothorax: CXR showed enlargement of pneumothorax; had larger chest tube inserted CXR done today showed lungs havent fully expanded. per general surgery, for chest tube removal likely Friday 3. Aspiration pneumonia: as under 1 4. UTI: as under 1. 5.Severe Debility due to mechanical falls and end stage Parkinson's disease has history of multiple falls. PT/OT on board. on ibuprofen and tylenol for pain. 6. Non anion gap acidosis: bicarb is down to 19 today. Will monitor 7. Parkinsons disease: on carbidopa, rivastigmine, rasagiline and Requip. to get meds via NG tube 8. Protein calorie malnutrition: BMI is only ~ 18. Nutrition on board. On tube feeding with Jevity, as per nutrition. TUbe feeds on hold now as he wasnt able to tolerate it; at risk of aspiration. 9. BPH: on flomax DVT prophylaxis: lovenox Code status: DNRCCA Prognosis: poor.Plan is for dc home with home hospice after chest tube is removed. and her plan is for him to go with home hospice once chest tube is out. Code Visit Inpatient E&M: 92506 Subs Hosp L3
--- NOTE | 2018-09-19 11:24 | PN_ITS ---
Patient Problems: Active and Suspected Problems (Last Reviewed 09/13/18 @ 11:19 by Sharif Gurrola MD) Pneumothorax (Acute) Cystitis (Acute) Fall (Acute) Aspiration of food (Acute) Subjective: Patient seen and examined. He remains very lethargic and weak and unable to respond to review of systems. According to his nurse, he was noted to be not tolerating tube feeds very well and this has been stopped. Labs and vitals reviewed. Chest x-ray done today showed cardiomegaly with mild effusion and atelectasis in the right lower lung base. Lungs are not fully expanded. Basilar infiltrates bilaterally cannot be excluded per x-ray. KUB showed feeding tube with tip in the distal duodenal with catheter forming a loop in a hiatal hernia. Vitals/I&O's: Vital Signs Temp Pulse Resp BP Pulse Ox 98.2 F 66 22 H 143/79 H 99 09/19/18 08:39 09/19/18 08:39 09/19/18 08:39 09/19/18 08:39 09/19/18 08:39 Oxygen Flow Rate (L/min) [3] 15 Oxygen Flow Rate (L/min) [2] 15 Oxygen Flow Rate (L/min) [1 ( 15 Initial Baseline)] Oxygen Flow Rate (L/min) 15 Oxygen Delivery Method [3] Non-Rebreather Oxygen Delivery Method [2] Non-Rebreather Oxygen Delivery Method [1 ( Non-Rebreather Initial Baseline)] Oxygen Delivery Method Room Air Weight: 120 lb 5.958 oz Body Mass Index (BMI) 18.3 Finger Stick Blood Glucose 81 Intake and Output for Last 24 Hours 09/17/18 09/18/18 09/19/18 23:59 23:59 23:59 Intake Total 5087 / 5087 1909 / 1909 4286 / 4286 Output Total 40 / 40 35 / 35 50 / 50 Balance 5047 / 5047 1874 / 1874 4236 / 4236 General: very lethargic and frail HEENT: Atraumatic, PERRLA, EOMI, Normocephalic. DObhoff tube in place, receiving tube feed through tube. Oral: Dry Mucosa Neck: Supple, No JVD, Negative Carotid Bruits Lungs: - - significantly decreased breath sounds in right lung bruner; Right sided chest tube in place Cardiovascular: Regular rate, Regular Rhythm, Normal S1, Normal S2, No murmurs Abdomen: Bowel Sounds Present, Soft, Non Tender, Non-Distended, No Hepato- splenomegaly Extremities: No clubbing, No cyanosis, No edema, Capillary Refill Less than 3 Seconds Skin: No rashes, No breakdown Musculoskeletal: No Tenderness to Palpation of Joints or Extremities Neurological: - - very lethargic; Psych/Mental Status: - -lethargic Microbiology Past 72 Hours 09/14/18 09:24 Blood Culture (Wb) - Left Hand Blood Culture - Preliminary No growth in 48 hours. 09/14/18 09:20 Blood Culture (Wb) - Anticubital Left Blood Culture - Preliminary No growth in 48 hours. Laboratory Results 09/19/18 07:41: WBC 9.2, RBC 4.22 L, Hgb 12.9 L, Hct 36.3 L, MCV 86.0, MCH 30.6, MCHC 35.5, RDW 13.2, RDW Differential 41.3, Plt Count 154, MPV 9.1, Immature Gran % (Auto) 0.200, Neut % (Auto) 65.3, Lymph % (Auto) 21.7, Henderson % (Auto) 9.1, Eos % (Auto) 3.4, Baso % (Auto) 0.3, Absolute Neuts (auto) 6.0, Absolute Lymphs (auto) 2.00, Total Counted Not Reportable 09/19/18 07:41: Sodium 138, Potassium 3.5, Chloride 113 H, Carbon Dioxide 19.0 L , Anion Gap 6, BUN 8, Creatinine 0.56 L, Estim Creat Clear Calc 47.78, Est GFR (MDRD) Af Amer 181, Est GFR (MDRD) Non-Af 150, BUN/Creatinine Ratio 14.3, Glucose 92, Calcium 7.4 L Current Medications Acetaminophen (Tylenol Liquid) 500 mg NG Q6H PRN PRN PRN Reason: PAIN Carbidopa/Levodopa (Sinemet) 1 tablet NG TIDAC [facility] Last Admin: 09/19/18 07:20 Dose: 1 tablet Dextrose (D50w Syringe) 0 gm IV X1 PRN; Protocol PRN Reason: Hypoglycemia Enoxaparin Sodium (Lovenox) 40 mg SC DAILY@1000 [facility] Last Admin: 09/19/18 09:50 Dose: 40 mg Glucagon () 1 mg IM .X1 PRN PRN Reason: Hypoglycemia Glycopyrrolate (Robinul) 1 mg GT TID [facility] Last Admin: 09/19/18 07:09 Dose: 1 mg Hydralazine HCl (Apresoline Iv) 10 mg IV Q6H PRN PRN PRN Reason: BLOOD PRESSURE ELEVATION Last Admin: 09/18/18 20:31 Dose: 10 mg Sodium Chloride () 250 mls @ 15 mls/hr IV .[id number] PRN PRN Reason: SALINE FLUSH Famotidine 20 mg/ Sodium (Chloride) 10 mls @ 300 mls/hr IV Q24 [facility] Last Admin: 09/19/18 09:58 Dose: 300 mls/hr Piperacillin Sod/Tazobactam (Sod 3.375 gm/ Sodium Chloride) 50 mls @ 12.5 mls/hr IV Q8 [facility] Last Admin: 09/19/18 07:06 Dose: 12.5 mls/hr Sodium Chloride () 1,000 mls @ 100 mls/hr IV .Q10H [facility] Last Admin: 09/19/18 03:35 Dose: 100 mls/hr Enteral Nutritional Formula (Jevity 1.5) 1,000 mls @ 20 mls/hr GT .Q48H [facility] Last Admin: 09/19/18 00:08 Dose: 20 mls/hr Ketorolac Tromethamine (Toradol) 30 mg IV Q8H PRN PRN PRN Reason: PAIN Stop: 09/19/18 11:43 Last Admin: 09/19/18 07:13 Dose: 30 mg Lansoprazole (Lansoprazole) 30 mg NG DAILY [facility] Last Admin: 09/19/18 09:59 Dose: 30 mg Melatonin (Melatonin) 3 mg NG QHS PRN PRN Reason: INSOMNIA Multivitamins (Multivitamin) 1 tablet NG DAILYCM [facility] Last Admin: 09/19/18 09:49 Dose: 1 tablet Nutritional Formula (Lactose Free) (Ensure Enlive) 120 ml PO TID [facility] Last Admin: 09/19/18 07:28 Dose: Not Given Ondansetron HCl (Zofran) 4 mg IV Q8H PRN PRN PRN Reason: NAUSEA/VOMITING Pramipexole Dihydrochloride (Mirapex) 0.5 mg GT TIDCM [facility] Last Admin: 09/19/18 09:45 Dose: 0.5 mg Rivastigmine Tartrate (Exelon) 3 mg NG BIDCM [facility] Last Admin: 09/19/18 09:49 Dose: 3 mg Sodium Chloride () 5 - 15 ml IV UD PRN PRN Reason: SALINE FLUSH Last Admin: 09/19/18 09:59 Dose: 10 ml Venlafaxine HCl (Effexor Xr) 75 mg PO DAILY [facility] Last Admin: 09/19/18 09:50 Dose: 75 mg Medical Necessity - Tobacco Use Smoking Status: Never smoker Assessment/Plan All Active Problems (Last Reviewed 09/13/18 @ 11:19 by Sharif Gurrola MD) Pneumothorax (Acute) Cystitis (Acute) Fall (Acute) Aspiration of food (Acute) Anemia due to blood loss, acute (Acute) Dehydration (Acute) FTT (failure to thrive) in adult (Acute) Lower GI bleed (Acute) Diverticulitis large intestine (Acute) 1. Acute metabolic encephalopathy due to UTI and aspiration pneumonia * patient was not tolerating tube feeds well. CXR repeated today shows bibasilar infiltrates * continue IV zosyn. Tube feed stopped now. * on IV zosyn * no leucocytosis; pulmonology on board * general surgery on board. * aggressive bronchopulmonary hygiene * * 2.Right sided pneumothorax: * CXR showed enlargement of pneumothorax; had larger chest tube inserted * CXR done today showed lungs havent fully expanded. * per general surgery, for chest tube removal likely Friday * 3. Aspiration pneumonia: as under 1 4. UTI: as under 1. 5.Severe Debility due to mechanical falls and end stage Parkinson's disease * has history of multiple falls. * PT/OT on board. on ibuprofen and tylenol for pain. * 6. Non anion gap acidosis: * bicarb is down to 19 today. Will monitor * 7. Parkinsons disease: on carbidopa, rivastigmine, rasagiline and Requip. to get meds via NG tube 8. Protein calorie malnutrition: * BMI is only ~ 18. Nutrition on board. On tube feeding with Jevity, as per nutrition. * TUbe feeds on hold now as he wasnt able to tolerate it; at risk of aspiration. 9. BPH: on flomax DVT prophylaxis: lovenox Code status: DNRCCA Prognosis: poor.Plan is for dc home with home hospice after chest tube is removed. and her plan is for him to go with home hospice once chest tube is out. Code Visit Inpatient E&M: 62893 Subs Hosp L3
[2018-09-19] MEDS: Acetaminophen 650 MG/20 ML UDC 500 MG NG (18:22)
--- NOTE | 2018-09-19 19:34 | NURSING ---
Earlier this afternoon, ([id number]) Dr. Gurrola was informed of the results of the KUB. Dr. Gurrola was informed this morning by this nurse that Jevity had been decreased to 30ml/hr d/t pt coughing. Dr. Gurrola concerned that Dobhoff not in correct place ordered KUB. Dr. Gurrola after knowing the results of KUB stated it was okay to Increase Jevity to 40ml/hr and in 6hrs increase to 50ml/hr with max goal of 50m./hr just like previously ordered.
[2018-09-19] MEDS: hydrALAZINE 20 MG/ML Vial 10 MG IV (20:31)
[2018-09-19] MEDS: Menthol/Lanolin/Calamine/Znox 113 GM Tube 1 APPLIC TOPICAL (22:46)
[2018-09-19] MEDS: MELATONIN 3 MG TABLET NG (23:11)
[2018-09-20] VITALS (8 sets, daily range): BP systolic 125–164; BP diastolic 68–95; PULSE 56–62; RESP 16–20; TEMP 36–37.4; O2SAT 95–100
[2018-09-20] MEDS: Acetaminophen 650 MG/20 ML UDC 500 MG NG ×2 (03:21→12:51)
--- NOTE | 2018-09-20 05:55 | RAD_ITS ---
STUDY: X-RAY CHEST REASON FOR EXAM: Male, 77 years old. Pneumothorax TECHNIQUE: Frontal view COMPARISON: September 19, 2018 FINDINGS: Stable feeding tube and right chest tube. The lungs are not fully expanded. No pneumothorax. Bibasilar atelectasis/infiltrate, similar to previous study. Normal size heart. Normal mediastinum and ashanti. Normal visualized pulmonary arteries. Normal visualized aortic arch and descending thoracic aorta. Degenerative changes and scoliosis of the thoracic spine. THORACIC compressions with previous vertebral plasty. Normal visualized ribs, clavicles, and shoulders. Stable hiatal hernia. RAD/Chest 1 View (Portable) IMPRESSION: No pneumothorax. Bibasilar atelectasis/infiltrate, similar to previous study. Electronically Signed: Farhad Pisano DO at 8:07 EDT Tel [phone], Service support ,
[2018-09-20] MEDS: Jevity 1.5 1,000 ML 20 ML GT (06:36)
[2018-09-20] MEDS: Carbidopa/Levodopa 25/100 Tablet NG ×3 (06:36→18:40)
[2018-09-20] MEDS: Glycopyrrolate 1 MG TABLET GT ×2 (06:36→18:39)
[2018-09-20 06:54] LABS: Anion Gap 9 (5-15); BUN 8 mg/dL (7-18); BUN/Creat Ratio 15.7 RATIO (10-20); Calcium,Total 7.7 mg/dL (8.5-10.1); Chloride 113 mmol/L (98-107); Creatinine, Serum 0.51 mg/dL (0.70-1.30); EST Glomerular Filtration Rate 167 mL/min (>60); Est Glom Filt Rate - Afr Amer 202 mL/min (>60); Estimated Creatinine Clearance 47.78 ml/min; Glucose 87 mg/dL (74-106); Potassium 3.4 mmol/L (3.5-5.1); Sodium Level 142 mmol/L (136-145)
[2018-09-20 07:06] LABS: Absolute Lymphocyte Count 1.72 X10^3/ul (0.83-4.51); Absolute Neutrophil Count 6.8 X10^3/uL (2.0-7.7); Basophil# 0.03 X10^3/uL; Basophil% 0.3 % (0-1); Eosinophil# 0.44 X10^3/uL; Eosinophils% 4.5 % (0-5); Hematocrit 32.8 % (40-54); Hemoglobin 11.5 g/dl (13.0-16.5); Lymphocyte # 1.72 X10^3/ul (4.0); Lymphocyte % 17.7 % (19-41); Mean Corp Hgb Conc 35.1 g/gl (32-36); Mean Corpuscular Hgb 30.7 pg (27.0-32.0); Mean Corpuscular Volume 87.7 fL (80-94); Mean Platelet Vol. 9.1 fl (6.2-12.0); Monocyte# 0.68 X10^3/uL; Neutrophil # 6.83 X10^3/uL (2.7-7.7); Neutrophil % 70.1 % (47-70); Platelet Count 233 K/mm3 (150-450); RBC Distribution Width CV 13.5 % (11.6-14.6); RBC Distribution Width SD 43.5 fl (35.1-43.9); Red Blood Count 3.74 M/mm3 (4.6-6.2); White Blood Count 9.7 K/mm3 (4.4-11.0)
[2018-09-20 07:15] LABS: POSITIVE COUNT NO; POSITIVE DIFFERENTIAL NO; POSITIVE MORPHOLOGY NO
--- NOTE | 2018-09-20 08:09 | PCM.PN.SRG ---
Patient Problems: Active and Suspected Problems (Last Reviewed 09/13/18 @ 11:19 by Sharif Gurrola MD) Pneumothorax (Acute) Cystitis (Acute) Fall (Acute) Aspiration of food (Acute) Subjective: Patient tolerating tube feeds at 50 cc an hour. Maintaining good oxygenation on room air, chest x-ray does not show a pneumothorax. Objective: No airleak, will change to waterseal - Physical Exam Lungs: Clear to auscultation - Except for some upper airway noise bilaterally Abdomen: Soft, Non Tender, Non-Distended Vital Signs Temp Pulse Resp BP Pulse Ox 97.9 F 60 20 H 125/68 H 95 09/20/18 03:19 09/20/18 03:19 09/20/18 03:19 09/20/18 03:19 09/20/18 06:30 Oxygen Flow Rate (L/min) [3] 15 Oxygen Flow Rate (L/min) [2] 15 Oxygen Flow Rate (L/min) [1 ( 15 Initial Baseline)] Oxygen Flow Rate (L/min) 15 Oxygen Delivery Method [3] Non-Rebreather Oxygen Delivery Method [2] Non-Rebreather Oxygen Delivery Method [1 ( Non-Rebreather Initial Baseline)] Oxygen Delivery Method Room Air Weight: 120 lb 5.958 oz Body Mass Index (BMI) 18.3 Finger Stick Blood Glucose 81 Intake and Output for Last 24 Hours 09/18/18 09/19/18 09/20/18 23:59 23:59 23:59 Intake Total 1909 / 1909 6312 / 6312 1893 / 1893 Output Total 35 / 35 140 / 140 100 / 100 Balance 1874 / 1874 6172 / 6172 1793 / 1793 Microbiology Past 72 Hours 09/14/18 09:24 Blood Culture - Final Blood Culture (Wb) - Left Hand No growth in 5 days. 09/14/18 09:20 Blood Culture - Final Blood Culture (Wb) - Anticubital Left No growth in 5 days. Laboratory Tests Past 24 Hrs 09/19/18 09/19/18 09/20/18 07:41 07:41 06:23 WBC 9.2 9.7 RBC 4.22 L 3.74 L Hgb 12.9 L 11.5 L Hct 36.3 L 32.8 L MCV 86.0 87.7 MCH 30.6 30.7 MCHC 35.5 35.1 RDW 13.2 13.5 RDW Differential 41.3 43.5 Plt Count 154 233 MPV 9.1 9.1 Immature Gran % (Auto) 0.200 0.400 Neut % (Auto) 65.3 70.1 H Lymph % (Auto) 21.7 17.7 L Henry % (Auto) 9.1 7.0 Eos % (Auto) 3.4 4.5 Baso % (Auto) 0.3 0.3 Absolute Neuts (auto) 6.0 6.8 Absolute Lymphs (auto) 2.00 1.72 Total Counted Not Reportable Not Reportable Sodium 138 Potassium 3.5 Chloride 113 H Carbon Dioxide 19.0 L Anion Gap 6 BUN 8 Creatinine 0.56 L Estim Creat Clear Calc 47.78 Est GFR (MDRD) Af Amer 181 Est GFR (MDRD) Non-Af 150 BUN/Creatinine Ratio 14.3 Glucose 92 Calcium 7.4 L 09/20/18 06:23 WBC RBC Hgb Hct MCV MCH MCHC RDW RDW Differential Plt Count MPV Immature Gran % (Auto) Neut % (Auto) Lymph % (Auto) Henry % (Auto) Eos % (Auto) Baso % (Auto) Absolute Neuts (auto) Absolute Lymphs (auto) Total Counted Sodium 142 Potassium 3.4 L Chloride 113 H Carbon Dioxide 20.0 L Anion Gap 9 BUN 8 Creatinine 0.51 L Estim Creat Clear Calc 47.78 Est GFR (MDRD) Af Amer 202 Est GFR (MDRD) Non-Af 167 BUN/Creatinine Ratio 15.7 Glucose 87 Calcium 7.7 L Medical Necessity - Tobacco Use Smoking Status: Never smoker Assessment/Plan All Active Problems (Last Reviewed 09/13/18 @ 11:19 by Sharif Gurrola MD) Pneumothorax (Acute) Cystitis (Acute) Fall (Acute) Aspiration of food (Acute) Anemia due to blood loss, acute (Acute) Dehydration (Acute) FTT (failure to thrive) in adult (Acute) Lower GI bleed (Acute) Diverticulitis large intestine (Acute) Changed right chest tube to waterseal today. Will check chest x-ray in the morning unless is any issues with oxygenation will check sooner. Patient is tolerating tube feeds. Sadaf Sinha M.D. Pager: [phone] [facility] [address] [place] [address], [facility], [address] [place] [address] Office: [phone]
--- NOTE | 2018-09-20 08:12 | PN.SURG_ITS ---
Patient Problems: Active and Suspected Problems (Last Reviewed 09/13/18 @ 11:19 by Sharif Gurrola MD) Pneumothorax (Acute) Cystitis (Acute) Fall (Acute) Aspiration of food (Acute) Subjective: Patient tolerating tube feeds at 50 cc an hour. Maintaining good oxygenation on room air, chest x-ray does not show a pneumothorax. Objective: No airleak, will change to waterseal - Physical Exam Lungs: Clear to auscultation - Except for some upper airway noise bilaterally Abdomen: Soft, Non Tender, Non-Distended Vital Signs Temp Pulse Resp BP Pulse Ox 97.9 F 60 20 H 125/68 H 95 09/20/18 03:19 09/20/18 03:19 09/20/18 03:19 09/20/18 03:19 09/20/18 06:30 Oxygen Flow Rate (L/min) [3] 15 Oxygen Flow Rate (L/min) [2] 15 Oxygen Flow Rate (L/min) [1 ( 15 Initial Baseline)] Oxygen Flow Rate (L/min) 15 Oxygen Delivery Method [3] Non-Rebreather Oxygen Delivery Method [2] Non-Rebreather Oxygen Delivery Method [1 ( Non-Rebreather Initial Baseline)] Oxygen Delivery Method Room Air Weight: 120 lb 5.958 oz Body Mass Index (BMI) 18.3 Finger Stick Blood Glucose 81 Intake and Output for Last 24 Hours 09/18/18 09/19/18 09/20/18 23:59 23:59 23:59 Intake Total 1909 / 1909 6312 / 6312 1893 / 1893 Output Total 35 / 35 140 / 140 100 / 100 Balance 1874 / 1874 6172 / 6172 1793 / 1793 Microbiology Past 72 Hours 09/14/18 09:24 Blood Culture - Final Blood Culture (Wb) - Left Hand No growth in 5 days. 09/14/18 09:20 Blood Culture - Final Blood Culture (Wb) - Anticubital Left No growth in 5 days. Laboratory Tests Past 24 Hrs 09/19/18 09/19/18 09/20/18 07:41 07:41 06:23 WBC 9.2 9.7 RBC 4.22 L 3.74 L Hgb 12.9 L 11.5 L Hct 36.3 L 32.8 L MCV 86.0 87.7 MCH 30.6 30.7 MCHC 35.5 35.1 RDW 13.2 13.5 RDW Differential 41.3 43.5 Plt Count 154 233 MPV 9.1 9.1 Immature Gran % (Auto) 0.200 0.400 Neut % (Auto) 65.3 70.1 H Lymph % (Auto) 21.7 17.7 L Moody % (Auto) 9.1 7.0 Eos % (Auto) 3.4 4.5 Baso % (Auto) 0.3 0.3 Absolute Neuts (auto) 6.0 6.8 Absolute Lymphs (auto) 2.00 1.72 Total Counted Not Reportable Not Reportable Sodium 138 Potassium 3.5 Chloride 113 H Carbon Dioxide 19.0 L Anion Gap 6 BUN 8 Creatinine 0.56 L Estim Creat Clear Calc 47.78 Est GFR (MDRD) Af Amer 181 Est GFR (MDRD) Non-Af 150 BUN/Creatinine Ratio 14.3 Glucose 92 Calcium 7.4 L 09/20/18 06:23 WBC RBC Hgb Hct MCV MCH MCHC RDW RDW Differential Plt Count MPV Immature Gran % (Auto) Neut % (Auto) Lymph % (Auto) Moody % (Auto) Eos % (Auto) Baso % (Auto) Absolute Neuts (auto) Absolute Lymphs (auto) Total Counted Sodium 142 Potassium 3.4 L Chloride 113 H Carbon Dioxide 20.0 L Anion Gap 9 BUN 8 Creatinine 0.51 L Estim Creat Clear Calc 47.78 Est GFR (MDRD) Af Amer 202 Est GFR (MDRD) Non-Af 167 BUN/Creatinine Ratio 15.7 Glucose 87 Calcium 7.7 L Medical Necessity - Tobacco Use Smoking Status: Never smoker Assessment/Plan All Active Problems (Last Reviewed 09/13/18 @ 11:19 by Sharif Gurrola MD) Pneumothorax (Acute) Cystitis (Acute) Fall (Acute) Aspiration of food (Acute) Anemia due to blood loss, acute (Acute) Dehydration (Acute) FTT (failure to thrive) in adult (Acute) Lower GI bleed (Acute) Diverticulitis large intestine (Acute) Changed right chest tube to waterseal today. Will check chest x-ray in the morning unless is any issues with oxygenation will check sooner. Patient is tolerating tube feeds. Sadaf Sinha M.D. Pager: [phone] [facility] [address] [place] [address], [facility], [address] [place] [address] Office: [phone]
--- NOTE | 2018-09-20 08:25 | NURSING ---
Dr. Sinha here and informed this nurse that she put Chest tube to water seal and to keep on water seal today.
[2018-09-20] MEDS: Pramipexole Di-HCl 0.5 MG Tablet GT ×3 (08:29→18:39)
[2018-09-20] MEDS: Enoxaparin 40 MG/0.4 ML Syringe SC (08:30)
[2018-09-20] MEDS: Rivastigmine Tartrate 1.5 MG Capsule 3 MG NG ×2 (08:31→18:41)
[2018-09-20] MEDS: Multivitamins,Therapeutic Tablet 1 TABLET NG (08:31)
[2018-09-20] MEDS: Venlafaxine XR 75 MG Capsule PO (08:32)
[2018-09-20] MEDS: Menthol/Lanolin/Calamine/Znox 113 GM Tube 1 APPLIC TOPICAL ×2 (08:32→21:19)
[2018-09-20] MEDS: Lansoprazole 15 MG Capsule.DR 30 MG NG (08:34)
[2018-09-20] MEDS: 0.9% Normal Saline 1,000 ML 100 ML IV ×2 (09:19→18:48)
[2018-09-20] MEDS: 0.9% NaCl Peripheral Flush Adult/Peds IV (09:20)
--- NOTE | 2018-09-20 09:47 | PCM.PN.HOSP ---
Patient Problems: Active and Suspected Problems (Last Reviewed 09/13/18 @ 11:19 by Sharif Gurrola MD) Pneumothorax (Acute) Cystitis (Acute) Fall (Acute) Aspiration of food (Acute) Subjective: Patient seen and examined. was by his bedside. Patient looks much more alert today. had no concern. Patient agreeable and not able to answer questions. Review of systems not done on account of patient not being able to answer questions. states if pneumothoraxes recurred per x-ray tomorrow, she was told once the chest tube taken out and would not want anything else done. Her plan is still to take him home with home hospice. Vitals/I&O's: Vital Signs Temp Pulse Resp BP Pulse Ox 96.8 F L 56 L 20 H 148/95 H 100 09/20/18 08:51 09/20/18 08:51 09/20/18 08:51 09/20/18 08:51 09/20/18 08:51 Oxygen Flow Rate (L/min) [3] 15 Oxygen Flow Rate (L/min) [2] 15 Oxygen Flow Rate (L/min) [1 ( 15 Initial Baseline)] Oxygen Flow Rate (L/min) 15 Oxygen Delivery Method [3] Non-Rebreather Oxygen Delivery Method [2] Non-Rebreather Oxygen Delivery Method [1 ( Non-Rebreather Initial Baseline)] Oxygen Delivery Method Room Air Weight: 120 lb 5.958 oz Body Mass Index (BMI) 18.3 Finger Stick Blood Glucose 81 Intake and Output for Last 24 Hours 09/18/18 09/19/18 09/20/18 23:59 23:59 23:59 Intake Total 1909 / 1909 6312 / 6312 1893 / 1893 Output Total 35 / 35 140 / 140 100 / 100 Balance 1874 / 1874 6172 / 6172 179 / 179 General: still very frail, but more alert today. Still non verbal HEENT: Atraumatic, PERRLA, EOMI, Normocephalic. DObhoff tube in place, receiving tube feed through tube. Oral: Dry Mucosa Neck: Supple, No JVD, Negative Carotid Bruits Lungs: - - significantly decreased breath sounds in right lung bruner; Right sided chest tube in place Cardiovascular: Regular rate, Regular Rhythm, Normal S1, Normal S2, No murmurs Abdomen: Bowel Sounds Present, Soft, Non Tender, Non-Distended, No Hepato-splenomegaly Extremities: No clubbing, No cyanosis, No edema, Capillary Refill Less than 3 Seconds Skin: No rashes, No breakdown Musculoskeletal: No Tenderness to Palpation of Joints or Extremities Neurological: - -lethargic; Psych/Mental Status: - -lethargic Microbiology Past 72 Hours 09/14/18 09:24 Blood Culture (Wb) - Left Hand Blood Culture - Final No growth in 5 days. 09/14/18 09:20 Blood Culture (Wb) - Anticubital Left Blood Culture - Final No growth in 5 days. Laboratory Results 09/20/18 06:23: WBC 9.7, RBC 3.74 L, Hgb 11.5 L, Hct 32.8 L, MCV 87.7, MCH 30.7, MCHC 35.1, RDW 13.5, RDW Differential 43.5, Plt Count 233, MPV 9.1, Immature Gran % (Auto) 0.400, Neut % (Auto) 70.1 H, Lymph % (Auto) 17.7 L, [place] % (Auto) 7.0, Eos % (Auto) 4.5, Baso % (Auto) 0.3, Absolute Neuts (auto) 6.8, Absolute Lymphs (auto) 1.72, Total Counted Not Reportable 09/20/18 06:23: Sodium 142, Potassium 3.4 L, Chloride 113 H, Carbon Dioxide 20.0 L, Anion Gap 9, BUN 8, Creatinine 0.51 L, Estim Creat Clear Calc 47.78, Est GFR (MDRD) Af Amer 202, Est GFR (MDRD) Non-Af 167, BUN/Creatinine Ratio 15.7, Glucose 87, Calcium 7.7 L Diagnostic Data Abdomen/Pelvis CT 09/12/18 17:59 IMPRESSION: 1. Large right pneumothorax partially visualized. 2. No abdominal ascites or pneumoperitoneum. 3. Moderate fecal retention. 4. Similar degenerative and operative changes of the lumbar spine. Lower thoracic and upper lumbar vertebral body compression fractures are similar since 2017. 5. Atherosclerosis. 6. Nonobstructing renal calculi. Electronically Signed: Flavio Jacome MD at 19:23 EDT , Service support , Brain CT 09/14/18 09:04 IMPRESSION: Chronic involutional changes of the brain. Stable examination. Electronically Signed: Corby Henry, at 11:19 EDT , Service support , KUB X-Ray 09/19/18 09:03 IMPRESSION: Feeding tube with tip in the distal duodenum. The catheter also forms a loop in a hiatal hernia. Electronically Signed: Farhad Pisano DO at 9:48 EDT Tel [phone], Service support , Chest X-Ray 09/20/18 05:55 IMPRESSION: No pneumothorax. Bibasilar atelectasis/infiltrate, similar to previous study. Electronically Signed: Farhad Pisano DO at 8:07 EDT Tel [phone], Service support , Current Medications Acetaminophen (Tylenol Liquid) 500 mg NG Q6H PRN PRN PRN Reason: PAIN Last Admin: 09/20/18 03:21 Dose: 500 mg Calamine/Phenol (Calmoseptine Ointment) 1 applic TOPICAL BID [facility]; Protocol Last Admin: 09/20/18 08:32 Dose: 1 applicatio Carbidopa/Levodopa (Sinemet) 1 tablet NG TIDAC [facility] Last Admin: 09/20/18 06:36 Dose: 1 tablet Dextrose (D50w Syringe) 0 gm IV X1 PRN; Protocol PRN Reason: Hypoglycemia Enoxaparin Sodium (Lovenox) 40 mg SC DAILY@1000 SAIRA Last Admin: 09/20/18 08:30 Dose: 40 mg Glucagon () 1 mg IM .X1 PRN PRN Reason: Hypoglycemia Glycopyrrolate (Robinul) 1 mg GT TID [facility] Last Admin: 09/20/18 06:36 Dose: 1 mg Hydralazine HCl (Apresoline Iv) 10 mg IV Q6H PRN PRN PRN Reason: BLOOD PRESSURE ELEVATION Last Admin: 09/19/18 20:31 Dose: 10 mg Sodium Chloride () 250 mls @ 15 mls/hr IV .[id number] PRN PRN Reason: SALINE FLUSH Famotidine 20 mg/ Sodium (Chloride) 10 mls @ 300 mls/hr IV Q24 [facility] Last Admin: 09/20/18 09:20 Dose: 300 mls/hr Piperacillin Sod/Tazobactam (Sod 3.375 gm/ Sodium Chloride) 50 mls @ 12.5 mls/hr IV Q8 [facility] Last Admin: 09/20/18 06:36 Dose: 12.5 mls/hr Sodium Chloride () 1,000 mls @ 100 mls/hr IV .Q10H [facility] Last Admin: 09/20/18 09:19 Dose: 100 mls/hr Enteral Nutritional Formula (Jevity 1.5) 1,000 mls @ 20 mls/hr GT .Q48H [facility] Last Admin: 09/20/18 06:36 Dose: 20 mls/hr Lansoprazole (Lansoprazole) 30 mg NG DAILY [facility] Last Admin: 09/20/18 08:34 Dose: 30 mg Melatonin (Melatonin) 3 mg NG QHS PRN PRN Reason: INSOMNIA Last Admin: 09/19/18 23:11 Dose: 3 mg Multivitamins (Multivitamin) 1 tablet NG DAILYCM [facility] Last Admin: 09/20/18 08:31 Dose: 1 tablet Ondansetron HCl (Zofran) 4 mg IV Q8H PRN PRN PRN Reason: NAUSEA/VOMITING Pramipexole Dihydrochloride (Mirapex) 0.5 mg GT TIDCM [facility] Last Admin: 09/20/18 08:29 Dose: 0.5 mg Rivastigmine Tartrate (Exelon) 3 mg NG BIDCM [facility] Last Admin: 09/20/18 08:31 Dose: 3 mg Sodium Chloride () 5 - 15 ml IV UD PRN PRN Reason: SALINE FLUSH Last Admin: 09/20/18 09:20 Dose: 10 ml Venlafaxine HCl (Effexor Xr) 75 mg PO DAILY [facility] Last Admin: 09/20/18 08:32 Dose: 75 mg Medical Necessity - Tobacco Use Smoking Status: Never smoker Assessment/Plan All Active Problems (Last Reviewed 09/13/18 @ 11:19 by Sharif Gurrola MD) Pneumothorax (Acute) Cystitis (Acute) Fall (Acute) Aspiration of food (Acute) Anemia due to blood loss, acute (Acute) Dehydration (Acute) FTT (failure to thrive) in adult (Acute) Lower GI bleed (Acute) Diverticulitis large intestine (Acute) 1. Acute metabolic encephalopathy due to UTI and aspiration pneumonia Patient looks much more alert today. KUB done yesterday showed proper placement of the NG tube. patient now tolerating tube feeding at 50cc/hr. pulmonology on board on IV zosyn still. no leucocytosis general surgery on board. aggressive bronchopulmonary hygiene 2. Right sided pneumothorax: had larger chest tube inserted CXR done today showed no pneumothorax, but showed lungs are not fully expanded. Bibasilar atelectasis/infiltrate, similar to previous study. management as per general surgery per , pneumothorax even recurs, she will want anything else done about it and wants the tube taken out tomorrow. 3. Aspiration pneumonia: as under 1 4. UTI: as under 1. 5.Severe Debility due to mechanical falls and end stage Parkinson's disease has history of multiple falls. PT/OT on board. on ibuprofen and tylenol for pain. 6. Non anion gap acidosis: bicarb is 20 today. Will monitor 7. Parkinsons disease: on carbidopa, rivastigmine, rasagiline and Requip. to get meds via NG tube 8. Protein calorie malnutrition: BMI is only ~ 18. Nutrition on board. On tube feeding with Jevity, as per nutrition. 9. BPH: on flomax DVT prophylaxis: lovenox Code status: DNRCCA Prognosis: poor.Plan is for dc home with home hospice after chest tube is removed. and her plan is for him to go with home hospice once chest tube is out. Code Visit Inpatient E&M: 43191 Subs Hosp L3
--- NOTE | 2018-09-20 09:52 | PN_ITS ---
Patient Problems: Active and Suspected Problems (Last Reviewed 09/13/18 @ 11:19 by Sharif Gurrola MD) Pneumothorax (Acute) Cystitis (Acute) Fall (Acute) Aspiration of food (Acute) Subjective: Patient seen and examined. was by his bedside. Patient looks much more alert today. had no concern. Patient agreeable and not able to answer questions. Review of systems not done on account of patient not being able to answer questions. states if pneumothoraxes recurred per x-ray tomorrow, she was told once the chest tube taken out and would not want anything else done. Her plan is still to take him home with home hospice. Vitals/I&O's: Vital Signs Temp Pulse Resp BP Pulse Ox 96.8 F L 56 L 20 H 148/95 H 100 09/20/18 08:51 09/20/18 08:51 09/20/18 08:51 09/20/18 08:51 09/20/18 08:51 Oxygen Flow Rate (L/min) [3] 15 Oxygen Flow Rate (L/min) [2] 15 Oxygen Flow Rate (L/min) [1 ( 15 Initial Baseline)] Oxygen Flow Rate (L/min) 15 Oxygen Delivery Method [3] Non-Rebreather Oxygen Delivery Method [2] Non-Rebreather Oxygen Delivery Method [1 ( Non-Rebreather Initial Baseline)] Oxygen Delivery Method Room Air Weight: 120 lb 5.958 oz Body Mass Index (BMI) 18.3 Finger Stick Blood Glucose 81 Intake and Output for Last 24 Hours 09/18/18 09/19/18 09/20/18 23:59 23:59 23:59 Intake Total 1909 / 1909 6312 / 6312 1893 / 1893 Output Total 35 / 35 140 / 140 100 / 100 Balance 1874 / 1874 6172 / 6172 179 / 179 General: still very frail, but more alert today. Still non verbal HEENT: Atraumatic, PERRLA, EOMI, Normocephalic. DObhoff tube in place, receiving tube feed through tube. Oral: Dry Mucosa Neck: Supple, No JVD, Negative Carotid Bruits Lungs: - - significantly decreased breath sounds in right lung bruner; Right sided chest tube in place Cardiovascular: Regular rate, Regular Rhythm, Normal S1, Normal S2, No murmurs Abdomen: Bowel Sounds Present, Soft, Non Tender, Non-Distended, No Hepato- splenomegaly Extremities: No clubbing, No cyanosis, No edema, Capillary Refill Less than 3 Seconds Skin: No rashes, No breakdown Musculoskeletal: No Tenderness to Palpation of Joints or Extremities Neurological: - -lethargic; Psych/Mental Status: - -lethargic Microbiology Past 72 Hours 09/14/18 09:24 Blood Culture (Wb) - Left Hand Blood Culture - Final No growth in 5 days. 09/14/18 09:20 Blood Culture (Wb) - Anticubital Left Blood Culture - Final No growth in 5 days. Laboratory Results 09/20/18 06:23: WBC 9.7, RBC 3.74 L, Hgb 11.5 L, Hct 32.8 L, MCV 87.7, MCH 30.7, MCHC 35.1, RDW 13.5, RDW Differential 43.5, Plt Count 233, MPV 9.1, Immature Gran % (Auto) 0.400, Neut % (Auto) 70.1 H, Lymph % (Auto) 17.7 L, [place] % (Auto) 7.0, Eos % (Auto) 4.5, Baso % (Auto) 0.3, Absolute Neuts (auto) 6.8, Absolute Lymphs (auto) 1.72, Total Counted Not Reportable 09/20/18 06:23: Sodium 142, Potassium 3.4 L, Chloride 113 H, Carbon Dioxide 20.0 L, Anion Gap 9, BUN 8, Creatinine 0.51 L, Estim Creat Clear Calc 47.78, Est GFR (MDRD) Af Amer 202, Est GFR (MDRD) Non-Af 167, BUN/Creatinine Ratio 15.7, Glucose 87, Calcium 7.7 L Diagnostic Data Abdomen/Pelvis CT 09/12/18 17:59 IMPRESSION: 1. Large right pneumothorax partially visualized. 2. No abdominal ascites or pneumoperitoneum. 3. Moderate fecal retention. 4. Similar degenerative and operative changes of the lumbar spine. Lower thoracic and upper lumbar vertebral body compression fractures are similar since 2017. 5. Atherosclerosis. 6. Nonobstructing renal calculi. Electronically Signed: Flavio Jacome MD at 19:23 EDT , Service support , Brain CT 09/14/18 09:04 IMPRESSION: Chronic involutional changes of the brain. Stable examination. Electronically Signed: Corby Henry, at 11:19 EDT , Service support , KUB X-Ray 09/19/18 09:03 IMPRESSION: Feeding tube with tip in the distal duodenum. The catheter also forms a loop in a hiatal hernia. Electronically Signed: Farhad Pisano DO at 9:48 EDT Tel [phone], Service support , Chest X-Ray 09/20/18 05:55 IMPRESSION: No pneumothorax. Bibasilar atelectasis/infiltrate, similar to previous study. Electronically Signed: Farhad Pisano DO at 8:07 EDT Tel [phone], Service support , Current Medications Acetaminophen (Tylenol Liquid) 500 mg NG Q6H PRN PRN PRN Reason: PAIN Last Admin: 09/20/18 03:21 Dose: 500 mg Calamine/Phenol (Calmoseptine Ointment) 1 applic TOPICAL BID [facility]; Protocol Last Admin: 09/20/18 08:32 Dose: 1 applicatio Carbidopa/Levodopa (Sinemet) 1 tablet NG TIDAC [facility] Last Admin: 09/20/18 06:36 Dose: 1 tablet Dextrose (D50w Syringe) 0 gm IV X1 PRN; Protocol PRN Reason: Hypoglycemia Enoxaparin Sodium (Lovenox) 40 mg SC DAILY@1000 SAIRA Last Admin: 09/20/18 08:30 Dose: 40 mg Glucagon () 1 mg IM .X1 PRN PRN Reason: Hypoglycemia Glycopyrrolate (Robinul) 1 mg GT TID [facility] Last Admin: 09/20/18 06:36 Dose: 1 mg Hydralazine HCl (Apresoline Iv) 10 mg IV Q6H PRN PRN PRN Reason: BLOOD PRESSURE ELEVATION Last Admin: 09/19/18 20:31 Dose: 10 mg Sodium Chloride () 250 mls @ 15 mls/hr IV .[id number] PRN PRN Reason: SALINE FLUSH Famotidine 20 mg/ Sodium (Chloride) 10 mls @ 300 mls/hr IV Q24 [facility] Last Admin: 09/20/18 09:20 Dose: 300 mls/hr Piperacillin Sod/Tazobactam (Sod 3.375 gm/ Sodium Chloride) 50 mls @ 12.5 mls/hr IV Q8 [facility] Last Admin: 09/20/18 06:36 Dose: 12.5 mls/hr Sodium Chloride () 1,000 mls @ 100 mls/hr IV .Q10H [facility] Last Admin: 09/20/18 09:19 Dose: 100 mls/hr Enteral Nutritional Formula (Jevity 1.5) 1,000 mls @ 20 mls/hr GT .Q48H [facility] Last Admin: 09/20/18 06:36 Dose: 20 mls/hr Lansoprazole (Lansoprazole) 30 mg NG DAILY [facility] Last Admin: 09/20/18 08:34 Dose: 30 mg Melatonin (Melatonin) 3 mg NG QHS PRN PRN Reason: INSOMNIA Last Admin: 09/19/18 23:11 Dose: 3 mg Multivitamins (Multivitamin) 1 tablet NG DAILYCM [facility] Last Admin: 09/20/18 08:31 Dose: 1 tablet Ondansetron HCl (Zofran) 4 mg IV Q8H PRN PRN PRN Reason: NAUSEA/VOMITING Pramipexole Dihydrochloride (Mirapex) 0.5 mg GT TIDCM [facility] Last Admin: 09/20/18 08:29 Dose: 0.5 mg Rivastigmine Tartrate (Exelon) 3 mg NG BIDCM [facility] Last Admin: 09/20/18 08:31 Dose: 3 mg Sodium Chloride () 5 - 15 ml IV UD PRN PRN Reason: SALINE FLUSH Last Admin: 09/20/18 09:20 Dose: 10 ml Venlafaxine HCl (Effexor Xr) 75 mg PO DAILY [facility] Last Admin: 09/20/18 08:32 Dose: 75 mg Medical Necessity - Tobacco Use Smoking Status: Never smoker Assessment/Plan All Active Problems (Last Reviewed 09/13/18 @ 11:19 by Sharif Gurrola MD) Pneumothorax (Acute) Cystitis (Acute) Fall (Acute) Aspiration of food (Acute) Anemia due to blood loss, acute (Acute) Dehydration (Acute) FTT (failure to thrive) in adult (Acute) Lower GI bleed (Acute) Diverticulitis large intestine (Acute) 1. Acute metabolic encephalopathy due to UTI and aspiration pneumonia * Patient looks much more alert today. * KUB done yesterday showed proper placement of the NG tube. * patient now tolerating tube feeding at 50cc/hr. * pulmonology on board * on IV zosyn still. * no leucocytosis * general surgery on board. * aggressive bronchopulmonary hygiene * * 2. Right sided pneumothorax: * had larger chest tube inserted * CXR done today showed no pneumothorax, but showed lungs are not fully expanded. Bibasilar atelectasis/infiltrate, similar to previous study. * management as per general surgery * per , pneumothorax even recurs, she will want anything else done about it and wants the tube taken out tomorrow. * 3. Aspiration pneumonia: as under 1 4. UTI: as under 1. 5.Severe Debility due to mechanical falls and end stage Parkinson's disease * has history of multiple falls. * PT/OT on board. on ibuprofen and tylenol for pain. * 6. Non anion gap acidosis: * bicarb is 20 today. Will monitor * 7. Parkinsons disease: on carbidopa, rivastigmine, rasagiline and Requip. to get meds via NG tube 8. Protein calorie malnutrition: * BMI is only ~ 18. Nutrition on board. On tube feeding with Jevity, as per nutrition. 9. BPH: on flomax DVT prophylaxis: lovenox Code status: DNRCCA Prognosis: poor.Plan is for dc home with home hospice after chest tube is removed. and her plan is for him to go with home hospice once chest tube is out. Code Visit Inpatient E&M: 31552 Subs Hosp L3
--- NOTE | 2018-09-20 09:56 | NURSING ---
This morning when Dr. Benitez rounded on pt while t his nurse was in room, this nurse showed her and verbally told her (Dr. Benitez) that Mr. Yan's potassium is 3.[address] Benitez said she would order something. Waiting for order.
[2018-09-20] MEDS: 0.9% NaCl IVPB Med Flush (250 mL) 15 ML IV (15:36)
--- NOTE | 2018-09-20 17:37 | NURSING ---
This nurse phoned Dr. Benitez b/c potassium was never replaced. Dr. Benitez forgot and new order obtained.
--- NOTE | 2018-09-20 19:47 | NURSING ---
At 1830 this nurse went into give his scheduled meds. Meds went threw Dobhoff okay but when this nurse tried to given tylenol liquid, I met resistance. Tried repositioning pt but then again met resistancee. Nothing wanting to go in Dobhoff. This nurse Called Dr. Sinha who saw pt this morning. She is aware of all the above and that Harriet, Husbands is telling this nurse several times today that tomorrow I dont care what happens that tube is coming out of his nose. Pt only has one medication scheduled for tonight until Dr. Gurrola returns in the morning. Dr. Sinha gave order to put Coke down the Dobhof and it was attempted at this time with no success. Abbie Charge Nurse and [employer] shift leader all aware. Jevity was stopped this time.
[2018-09-20] MEDS: hydrALAZINE 20 MG/ML Vial 10 MG IV (21:06)
[2018-09-21 03:28] VITALS: BP 125/48; PULSE 58; RESP 16; TEMP 37.6; O2SAT 97
[2018-09-21] MEDS: 0.9% Normal Saline 1,000 ML 100 ML IV ×3 (05:14→23:04)
--- NOTE | 2018-09-21 05:55 | RAD_ITS ---
We are attempting to reach an attending provider to discuss findings. An addendum with communication details will be sent when the communication is complete. STUDY: X-RAY CHEST REASON FOR EXAM: Male, 77 years old. Pneumothorax TECHNIQUE: Single AP portable view of the chest. COMPARISON: 09/20 1719 FINDINGS: Stable chest tube, enteric tube and spinal thoracic stimulator leads. Enteric tube likely coiling in a hiatal hernia. There is moderate right apical pneumothorax, distends off the visceral to parietal pleura are 3.2 cm. Continued low lung volume, opacification of the lung bases, possible small left pleural effusion. There is no demonstrated pleural abnormality. Normal size heart. Normal mediastinum and [place]. Normal visualized pulmonary arteries. Normal visualized aortic x-ray arch and descending thoracic aorta. There is a dextroscoliosis of the thoracic spine, degenerative changes, osteoporosis, prior vertebroplasty. There is degenerative osteoarthritis of the bilateral shoulders. There is no demonstrated abnormality of the visualized soft tissue structures of the upper abdomen. RAD/Chest 1 View (Portable) IMPRESSION: Moderate sized right apical pneumothorax new since previous exam. No tension detected. Continued low lung volume with compression of the basilar parenchyma possible infiltrate or atelectasis, small left pleural effusion. Other nonacute findings as above. Electronically Signed: Kimberley Bonilla MD at 5:22 EDT , Service support ,
[2018-09-21 06:03] LABS: Absolute Lymphocyte Count 1.77 X10^3/ul (0.83-4.51); Absolute Neutrophil Count 5.8 X10^3/uL (2.0-7.7); Basophil# 0.05 X10^3/uL; Basophil% 0.6 % (0-1); Eosinophil# 0.48 X10^3/uL; Eosinophils% 5.6 % (0-5); Hematocrit 30.6 % (40-54); Hemoglobin 10.6 g/dl (13.0-16.5); Lymphocyte # 1.77 X10^3/ul (4.0); Lymphocyte % 20.6 % (19-41); Mean Corp Hgb Conc 34.6 g/gl (32-36); Mean Corpuscular Hgb 30.2 pg (27.0-32.0); Mean Corpuscular Volume 87.2 fL (80-94); Monocyte# 0.52 X10^3/uL; Monocyte% 6.1 % (0-10); Neutrophil # 5.76 X10^3/uL (2.7-7.7); Platelet Count 268 K/mm3 (150-450); RBC Distribution Width CV 13.2 % (11.6-14.6); RBC Distribution Width SD 40.5 fl (35.1-43.9); Red Blood Count 3.51 M/mm3 (4.6-6.2); White Blood Count 8.6 K/mm3 (4.4-11.0)
[2018-09-21 06:06] LABS: POSITIVE COUNT NO; POSITIVE DIFFERENTIAL NO; POSITIVE MORPHOLOGY NO
[2018-09-21 06:29] LABS: Anion Gap 9 (5-15); BUN 8 mg/dL (7-18); BUN/Creat Ratio 13.3 RATIO (10-20); Calcium,Total 7.3 mg/dL (8.5-10.1); Chloride 109 mmol/L (98-107); EST Glomerular Filtration Rate 138 mL/min (>60); Est Glom Filt Rate - Afr Amer 167 mL/min (>60); Estimated Creatinine Clearance 47.78 ml/min; Glucose 86 mg/dL (74-106); Potassium 3.3 mmol/L (3.5-5.1); Sodium Level 143 mmol/L (136-145)
--- NOTE | 2018-09-21 07:36 | NURSING ---
Dr. Gurrola notified of chest xray finding. Orders to remove Dobhoff if ok with and connect chest tube to suction. notified of orders. Harriet ok to remove dobhoff at this time. does not want chest tube connect to suction, stated she just wants him to be comfortable. is planning on having pt go to hospice today.
[2018-09-21 09:28] VITALS: BP 152/80; PULSE 62; RESP 18; TEMP 37.6; O2SAT 94
--- NOTE | 2018-09-21 10:39 | CASEMGMT ---
Social Work NOte RN called [facility] to have Hospice evaluate pt today for inpatient hospice unit. SW continue to follow. Zandra Villar ENVIRONMENTAL SERVICES TECH, UPPER CUTTER
[2018-09-21] MEDS: 0.9% NaCl Peripheral Flush Adult/Peds IV (11:05)
[2018-09-21] MEDS: Menthol/Lanolin/Calamine/Znox 113 GM Tube 1 APPLIC TOPICAL ×2 (11:09→23:04)
[2018-09-21] MEDS: Enoxaparin 40 MG/0.4 ML Syringe SC (11:10)
[2018-09-21 13:50] VITALS: BP 181/72; PULSE 61; RESP 18; TEMP 37.7; O2SAT 94
[2018-09-21] MEDS: Acetaminophen 650 MG Suppository RECTAL (13:53)
--- NOTE | 2018-09-21 15:26 | PCM.PN.HOSP ---
Patient Problems: Active and Suspected Problems (Last Reviewed 09/13/18 @ 11:19 by Sharif Gurrola MD) Pneumothorax (Acute) Cystitis (Acute) Fall (Acute) Aspiration of food (Acute) Subjective: Patient seen and examined. He still remains lethargic. Unable to answer any questions. by his bedside. Repeat chest x-ray today showed that the pneumothorax had recurred in the apical region of the right lung. NG tube was pulled out his did not want it and patient was not tolerating it. Per discussion with general surgery, is agreeable to have a small chest tube placed today to prevent the tension pneumothorax. now wants patient to go for inpatient hospice as she does not think she will be able to take care of him at home. Vitals/I&O's: Vital Signs Temp Pulse Resp BP Pulse Ox 99.8 F H 61 18 181/72 H 94 09/21/18 13:50 09/21/18 13:50 09/21/18 13:50 09/21/18 13:50 09/21/18 13:50 Oxygen Flow Rate (L/min) [3] 15 Oxygen Flow Rate (L/min) [2] 15 Oxygen Flow Rate (L/min) [1 ( 15 Initial Baseline)] Oxygen Flow Rate (L/min) 15 Oxygen Delivery Method [3] Non-Rebreather Oxygen Delivery Method [2] Non-Rebreather Oxygen Delivery Method [1 ( Non-Rebreather Initial Baseline)] Oxygen Delivery Method Room Air Weight: 120 lb 5.958 oz Body Mass Index (BMI) 18.3 Finger Stick Blood Glucose 81 Intake and Output for Last 24 Hours 09/19/18 09/20/18 09/21/18 23:59 23:59 23:59 Intake Total 6312 / 6312 4300 / 4300 1853 Output Total 140 / 140 100 / 100 Balance 6172 / 6172 4200 / 4200 1853 General: very lethargic and frail HEENT: Atraumatic, PERRLA, EOMI, Normocephalic. DObhoff tube removed. Oral: Dry Mucosa Neck: Supple, No JVD, Negative Carotid Bruits Lungs: - - significantly decreased breath sounds in right lung bruner; Right sided chest tube in place Cardiovascular: Regular rate, Regular Rhythm, Normal S1, Normal S2, No murmurs Abdomen: Bowel Sounds Present, Soft, Non Tender, Non-Distended, No Hepato-splenomegaly Extremities: No clubbing, No cyanosis, No edema, Capillary Refill Less than 3 Seconds Skin: No rashes, No breakdown Musculoskeletal: No Tenderness to Palpation of Joints or Extremities Neurological: - - very lethargic; Psych/Mental Status: - -lethargic Microbiology Past 72 Hours 09/14/18 09:24 Blood Culture (Wb) - Left Hand Blood Culture - Final No growth in 5 days. 09/14/18 09:20 Blood Culture (Wb) - Anticubital Left Blood Culture - Final No growth in 5 days. Laboratory Results 09/21/18 05:42: WBC 8.6, RBC 3.51 L, Hgb 10.6 L, Hct 30.6 L, MCV 87.2, MCH 30.2, MCHC 34.6, RDW 13.2, RDW Differential 40.5, Plt Count 268, MPV 9.0, Immature Gran % (Auto) 0.100, Neut % (Auto) 67.0, Lymph % (Auto) 20.6, [place] % (Auto) 6.1, Eos % (Auto) 5.6 H, Baso % (Auto) 0.6, Absolute Neuts (auto) 5.8, Absolute Lymphs (auto) 1.77, Total Counted Not Reportable 09/21/18 05:42: Sodium 143, Potassium 3.3 L, Chloride 109 H, Carbon Dioxide 25.0, Anion Gap 9, BUN 8, Creatinine 0.60 L, Estim Creat Clear Calc 47.78, Est GFR (MDRD) Af Amer 167, Est GFR (MDRD) Non-Af 138, BUN/Creatinine Ratio 13.3, Glucose 86, Calcium 7.3 L Current Medications Acetaminophen (Tylenol Liquid) 500 mg NG Q6H PRN PRN PRN Reason: PAIN Last Admin: 09/20/18 12:51 Dose: 500 mg Acetaminophen (Tylenol) 650 mg RECTAL Q4H PRN PRN PRN Reason: PAIN/FEVER Last Admin: 09/21/18 13:53 Dose: 650 mg Calamine/Phenol (Calmoseptine Ointment) 1 applic TOPICAL BID SAIRA; Protocol Last Admin: 09/21/18 11:09 Dose: 1 applicatio Carbidopa/Levodopa (Sinemet) 1 tablet NG TIDAC [facility] Last Admin: 09/21/18 11:11 Dose: Not Given Dextrose (D50w Syringe) 0 gm IV X1 PRN; Protocol PRN Reason: Hypoglycemia Enoxaparin Sodium (Lovenox) 40 mg SC DAILY@1000 SAIRA Last Admin: 09/21/18 11:10 Dose: 40 mg Glucagon () 1 mg IM .X1 PRN PRN Reason: Hypoglycemia Glycopyrrolate (Robinul) 1 mg GT TID [facility] Last Admin: 09/21/18 14:11 Dose: Not Given Hydralazine HCl (Apresoline Iv) 10 mg IV Q6H PRN PRN PRN Reason: BLOOD PRESSURE ELEVATION Last Admin: 09/20/18 21:06 Dose: 10 mg Sodium Chloride () 250 mls @ 15 mls/hr IV .[id number] PRN PRN Reason: SALINE FLUSH Last Admin: 09/20/18 15:36 Dose: 15 mls/hr Famotidine 20 mg/ Sodium (Chloride) 10 mls @ 300 mls/hr IV Q24 [facility] Last Admin: 09/21/18 11:05 Dose: 300 mls/hr Piperacillin Sod/Tazobactam (Sod 3.375 gm/ Sodium Chloride) 50 mls @ 12.5 mls/hr IV Q8 [facility] Last Admin: 09/21/18 13:53 Dose: 12.5 mls/hr Sodium Chloride () 1,000 mls @ 100 mls/hr IV .Q10H [facility] Last Admin: 09/21/18 14:10 Dose: 100 mls/hr Lansoprazole (Lansoprazole) 30 mg NG DAILY [facility] Last Admin: 09/21/18 10:52 Dose: Not Given Melatonin (Melatonin) 3 mg NG QHS PRN PRN Reason: INSOMNIA Last Admin: 09/19/18 23:11 Dose: 3 mg Multivitamins (Multivitamin) 1 tablet NG DAILYCM [facility] Last Admin: 09/21/18 10:50 Dose: Not Given Ondansetron HCl (Zofran) 4 mg IV Q8H PRN PRN PRN Reason: NAUSEA/VOMITING Pramipexole Dihydrochloride (Mirapex) 0.5 mg GT TIDCM [facility] Last Admin: 09/21/18 13:01 Dose: Not Given Rivastigmine Tartrate (Exelon) 3 mg NG BIDCM [facility] Last Admin: 09/21/18 10:50 Dose: Not Given Sodium Chloride () 5 - 15 ml IV UD PRN PRN Reason: SALINE FLUSH Last Admin: 09/21/18 11:05 Dose: 10 ml Venlafaxine HCl (Effexor Xr) 75 mg PO DAILY [facility] Last Admin: 09/21/18 10:51 Dose: Not Given Medical Necessity - Tobacco Use Smoking Status: Never smoker Assessment/Plan All Active Problems (Last Reviewed 09/13/18 @ 11:19 by Sharif Gurrola MD) Pneumothorax (Acute) Cystitis (Acute) Fall (Acute) Aspiration of food (Acute) Anemia due to blood loss, acute (Acute) Dehydration (Acute) FTT (failure to thrive) in adult (Acute) Lower GI bleed (Acute) Diverticulitis large intestine (Acute) 1. Acute metabolic encephalopathy due to UTI and aspiration pneumonia patient is very frail again today. CXR done today showed recurrence of pneumothorax in right apex continue IV zosyn o/a of risk of continuous aspiration NG tube removed. general surgery and pulmonology on board 2. Right sided pneumothorax: CXR today showed right apical pneumothorax per discussion with general surgery, agreeable to placement of small chest tube tomorrow to prevent tension pneumothorax. smaller chest tube to be placed tomorrow. 3. Aspiration pneumonia: as under 1 4. UTI: as under 1. 5.Severe Debility due to mechanical falls and end stage Parkinson's disease has history of multiple falls. PT/OT on board. on ibuprofen and tylenol for pain. 6. Non anion gap acidosis: bicarb is 20 today. Will monitor 7. Parkinsons disease: on carbidopa, rivastigmine, rasagiline and Requip. to get meds via NG tube 8. Protein calorie malnutrition: BMI is only ~ 18. Nutrition on board. On tube feeding with Jevity, as per nutrition. 9. BPH: on flomax DVT prophylaxis: lovenox Code status: DNRCCA Prognosis: poor.Plan is for dc to inpatient hospice tomorrow after smaller chest tube is placed. Code Visit Inpatient E&M: 17799 Subs Hosp L3
--- NOTE | 2018-09-21 15:30 | PN_ITS ---
Patient Problems: Active and Suspected Problems (Last Reviewed 09/13/18 @ 11:19 by Sharif Gurrola MD) Pneumothorax (Acute) Cystitis (Acute) Fall (Acute) Aspiration of food (Acute) Subjective: Patient seen and examined. He still remains lethargic. Unable to answer any questions. by his bedside. Repeat chest x-ray today showed that the pneumothorax had recurred in the apical region of the right lung. NG tube was pulled out his did not want it and patient was not tolerating it. Per discussion with general surgery, is agreeable to have a small chest tube placed today to prevent the tension pneumothorax. now wants patient to go for inpatient hospice as she does not think she will be able to take care of him at home. Vitals/I&O's: Vital Signs Temp Pulse Resp BP Pulse Ox 99.8 F H 61 18 181/72 H 94 09/21/18 13:50 09/21/18 13:50 09/21/18 13:50 09/21/18 13:50 09/21/18 13:50 Oxygen Flow Rate (L/min) [3] 15 Oxygen Flow Rate (L/min) [2] 15 Oxygen Flow Rate (L/min) [1 ( 15 Initial Baseline)] Oxygen Flow Rate (L/min) 15 Oxygen Delivery Method [3] Non-Rebreather Oxygen Delivery Method [2] Non-Rebreather Oxygen Delivery Method [1 ( Non-Rebreather Initial Baseline)] Oxygen Delivery Method Room Air Weight: 120 lb 5.958 oz Body Mass Index (BMI) 18.3 Finger Stick Blood Glucose 81 Intake and Output for Last 24 Hours 09/19/18 09/20/18 09/21/18 23:59 23:59 23:59 Intake Total 6312 / 6312 4300 / 4300 1853 Output Total 140 / 140 100 / 100 Balance 6172 / 6172 4200 / 4200 1853 General: very lethargic and frail HEENT: Atraumatic, PERRLA, EOMI, Normocephalic. DObhoff tube removed. Oral: Dry Mucosa Neck: Supple, No JVD, Negative Carotid Bruits Lungs: - - significantly decreased breath sounds in right lung bruner; Right sided chest tube in place Cardiovascular: Regular rate, Regular Rhythm, Normal S1, Normal S2, No murmurs Abdomen: Bowel Sounds Present, Soft, Non Tender, Non-Distended, No Hepato- splenomegaly Extremities: No clubbing, No cyanosis, No edema, Capillary Refill Less than 3 Seconds Skin: No rashes, No breakdown Musculoskeletal: No Tenderness to Palpation of Joints or Extremities Neurological: - - very lethargic; Psych/Mental Status: - -lethargic Microbiology Past 72 Hours 09/14/18 09:24 Blood Culture (Wb) - Left Hand Blood Culture - Final No growth in 5 days. 09/14/18 09:20 Blood Culture (Wb) - Anticubital Left Blood Culture - Final No growth in 5 days. Laboratory Results 09/21/18 05:42: WBC 8.6, RBC 3.51 L, Hgb 10.6 L, Hct 30.6 L, MCV 87.2, MCH 30.2, MCHC 34.6, RDW 13.2, RDW Differential 40.5, Plt Count 268, MPV 9.0, Immature Gran % (Auto) 0.100, Neut % (Auto) 67.0, Lymph % (Auto) 20.6, [place] % (Auto) 6.1, Eos % (Auto) 5.6 H, Baso % (Auto) 0.6, Absolute Neuts (auto) 5.8, Absolute Lymphs (auto) 1.77, Total Counted Not Reportable 09/21/18 05:42: Sodium 143, Potassium 3.3 L, Chloride 109 H, Carbon Dioxide 25.0, Anion Gap 9, BUN 8, Creatinine 0.60 L, Estim Creat Clear Calc 47.78, Est GFR (MDRD) Af Amer 167, Est GFR (MDRD) Non-Af 138, BUN/Creatinine Ratio 13.3, Glucose 86, Calcium 7.3 L Current Medications Acetaminophen (Tylenol Liquid) 500 mg NG Q6H PRN PRN PRN Reason: PAIN Last Admin: 09/20/18 12:51 Dose: 500 mg Acetaminophen (Tylenol) 650 mg RECTAL Q4H PRN PRN PRN Reason: PAIN/FEVER Last Admin: 09/21/18 13:53 Dose: 650 mg Calamine/Phenol (Calmoseptine Ointment) 1 applic TOPICAL BID [facility]IR[facility]; Protocol Last Admin: 09/21/18 11:09 Dose: 1 applicatio Carbidopa/Levodopa (Sinemet) 1 tablet NG TIDAC [facility] Last Admin: 09/21/18 11:11 Dose: Not Given Dextrose (D50w Syringe) 0 gm IV X1 PRN; Protocol PRN Reason: Hypoglycemia Enoxaparin Sodium (Lovenox) 40 mg SC DAILY@1000 [facility] Last Admin: 09/21/18 11:10 Dose: 40 mg Glucagon () 1 mg IM .X1 PRN PRN Reason: Hypoglycemia Glycopyrrolate (Robinul) 1 mg GT TID [facility] Last Admin: 09/21/18 14:11 Dose: Not Given Hydralazine HCl (Apresoline Iv) 10 mg IV Q6H PRN PRN PRN Reason: BLOOD PRESSURE ELEVATION Last Admin: 09/20/18 21:06 Dose: 10 mg Sodium Chloride () 250 mls @ 15 mls/hr IV .[id number] PRN PRN Reason: SALINE FLUSH Last Admin: 09/20/18 15:36 Dose: 15 mls/hr Famotidine 20 mg/ Sodium (Chloride) 10 mls @ 300 mls/hr IV Q24 [facility] Last Admin: 09/21/18 11:05 Dose: 300 mls/hr Piperacillin Sod/Tazobactam (Sod 3.375 gm/ Sodium Chloride) 50 mls @ 12.5 ml s/hr IV Q8 [facility] Last Admin: 09/21/18 13:53 Dose: 12.5 mls/hr Sodium Chloride () 1,000 mls @ 100 mls/hr IV .Q10H [facility] Last Admin: 09/21/18 14:10 Dose: 100 mls/hr Lansoprazole (Lansoprazole) 30 mg NG DAILY [facility] Last Admin: 09/21/18 10:52 Dose: Not Given Melatonin (Melatonin) 3 mg NG QHS PRN PRN Reason: INSOMNIA Last Admin: 09/19/18 23:11 Dose: 3 mg Multivitamins (Multivitamin) 1 tablet NG DAILYCM [facility] Last Admin: 09/21/18 10:50 Dose: Not Given Ondansetron HCl (Zofran) 4 mg IV Q8H PRN PRN PRN Reason: NAUSEA/VOMITING Pramipexole Dihydrochloride (Mirapex) 0.5 mg GT TIDCM [facility] Last Admin: 09/21/18 13:01 Dose: Not Given Rivastigmine Tartrate (Exelon) 3 mg NG BIDCM [facility] Last Admin: 09/21/18 10:50 Dose: Not Given Sodium Chloride () 5 - 15 ml IV UD PRN PRN Reason: SALINE FLUSH Last Admin: 09/21/18 11:05 Dose: 10 ml Venlafaxine HCl (Effexor Xr) 75 mg PO DAILY [facility] Last Admin: 09/21/18 10:51 Dose: Not Given Medical Necessity - Tobacco Use Smoking Status: Never smoker Assessment/Plan All Active Problems (Last Reviewed 09/13/18 @ 11:19 by Sharif Gurrola MD) Pneumothorax (Acute) Cystitis (Acute) Fall (Acute) Aspiration of food (Acute) Anemia due to blood loss, acute (Acute) Dehydration (Acute) FTT (failure to thrive) in adult (Acute) Lower GI bleed (Acute) Diverticulitis large intestine (Acute) 1. Acute metabolic encephalopathy due to UTI and aspiration pneumonia * patient is very frail again today. * CXR done today showed recurrence of pneumothorax in right apex * continue IV zosyn o/a of risk of continuous aspiration * NG tube removed. * general surgery and pulmonology on board * * 2. Right sided pneumothorax: * CXR today showed right apical pneumothorax * per discussion with general surgery, agreeable to placement of small chest tube tomorrow to prevent tension pneumothorax. * smaller chest tube to be placed tomorrow. * 3. Aspiration pneumonia: as under 1 4. UTI: as under 1. 5.Severe Debility due to mechanical falls and end stage Parkinson's disease * has history of multiple falls. * PT/OT on board. on ibuprofen and tylenol for pain. * 6. Non anion gap acidosis: * bicarb is 20 today. Will monitor * 7. Parkinsons disease: on carbidopa, rivastigmine, rasagiline and Requip. to get meds via NG tube 8. Protein calorie malnutrition: * BMI is only ~ 18. Nutrition on board. On tube feeding with Jevity, as per nutrition. 9. BPH: on flomax DVT prophylaxis: lovenox Code status: DNRCCA Prognosis: poor.Plan is for dc to inpatient hospice tomorrow after smaller chest tube is placed. Code Visit Inpatient E&M: 67491 Subs Hosp L3
--- NOTE | 2018-09-21 15:54 | CASEMGMT ---
Social Work Note SW updated by Gail at [facility] that pt has been accepted to Inpatient Unit at [facility] and that per pt's pt is going to get a smaller chest tube tonight. Gail states pt can discharge to inpatient hospice once medically cleared. Plan: Inpatient Hospice Zandra Villar DOUGHNUT DOUGH MIXER, CLAY PROCESSING LABOURER
--- NOTE | 2018-09-21 16:26 | OP.PCM_ITS ---
Problem List (1) Pneumothorax Status: Acute Qualifiers: Pneumothorax type: spontaneous, primary Qualified Code(s): J93.11 - Primary spontaneous pneumothorax (2) Aspiration of food Status: Acute Qualifiers: Encounter type: initial encounter Qualified Code(s): T17.920A - Food in respiratory tract, part unspecified causing asphyxiation, initial encounter Report of Operation Date of Procedure: 09/21/18 Pre-Operative Diagnosis: Persistent right-sided pneumothorax Post-Operative Diagnosis: Same Surgery/Procedure Performed:: Removal of 20 Belarusian right-sided chest tube replacement with 8 Belarusian right-sided chest tube Type of Anesthesia:: Local Description of Procedure: Despite being to suction for 3 days and then waterseal for 24 hours patient redeveloped a right-sided apical pneumothorax. I had a long discussion with the family they are going to inpatient hospice and I thought that it would be best if we replaced the 20 Belarusian chest tube with something that is smaller so that it would be less uncomfortable for him. They were agreeable. I subsequently was able to remove the right-sided chest tube without any difficulty. Sterilely prepped the right chest area with chlorhexidine. I injected 1% lidocaine plain and made a small skin kenneth and then directed the 8 Belarusian small chest tube into the thoracic cavity and directed it in a cephalad direction. I sutured this in place with a butterfly home using a U stitch. I hooked this up to a Heimlich valve and subsequently to a Syed bag that had an open system so that air could escape it. Sterile dressings were applied and the patient tolerated the procedure well. Postoperative chest x-ray was ordered. Patient will be ready to be discharged to inpatient hospice tomorrow.
--- NOTE | 2018-09-21 16:50 | RAD_ITS ---
STUDY: X-RAY CHEST REASON FOR EXAM: Male, 77 years old. Follow-up of right-sided pneumothorax TECHNIQUE: Frontal portable view of the chest was performed COMPARISON: 21 September 2018 FINDINGS: Right pneumothorax has decreased and now measures less than 3% of the hemithorax volume, less than 3mm in greatest thickness in the right apex. Right median bore chest tube has been exchanged for a smaller bore pleural catheter tubing. The catheter tubing is located in the medial mid lung zone. There is platelike atelectasis in the right lower lung. Left lung is clear and fully inflated. Gastric tube has been removed. There are spinal ablation electrodes terminating in the mid thoracic spine. There is scoliosis, osteoporosis and prior cement augmentation of lower thoracic fracture. RAD/Chest 1 View (Portable) IMPRESSION: 1. Miniscule residual right pneumothorax with drainage catheter in place. 2. Right lower lobe atelectasis. Electronically Signed: Abdirashid Guerra, at 17:10 EDT Tel , Service support ,
[2018-09-21 20:05] VITALS: BP 169/63; PULSE 59; RESP 16; TEMP 37.4; O2SAT 95
[2018-09-22 06:07] VITALS: BP 176/83; PULSE 61; RESP 16; TEMP 37.3; O2SAT 94
--- NOTE | 2018-09-22 09:25 | CASEMGMT ---
Social Work Note Physician is discharging pt to inpatient hospice unit today. SW spoke with Charge Nurse. Charge Nurse updated this worker that she placed a call to [facility] and updated Hospice on pt's discharge today. [facility] to arrange transportation. Plan: Discharge to [facility] Inpatient Unit today Zandra Villar DIESEL CRANE OPERATOR, YARN SIZER
--- NOTE | 2018-09-22 09:30 | CASEMGMT ---
Social Work Note SW received call from Ric at [facility] stating she arranged transportation and [facility] is on there way to [facility] to transport pt. RN updated, Charge Nurse updated. Ric provided nurse to nurse number [phone]. RN updated. Zandra Villar FIRE EQUIPMENT OPERATOR, HARVEST WORKER
[2018-09-22 10:00] VITALS: BP 183/83; PULSE 62; RESP 18; TEMP 37.2; O2SAT 95
[2018-09-22 10:10] VITALS: BP 183/83; PULSE 62; RESP 18; TEMP 37.2; O2SAT 95
--- NOTE | 2018-09-22 10:10 | DS.PCM_ITS ---
Discharge Date and Diagnosis Date of Admission: 09/12/18 Date of Discharge: 09/22/18 - Primary Discharge Diagnosis Active and Suspected Problems (Last Reviewed 09/13/18 @ 11:19 by Sharif Gurrola MD) Pneumothorax (Acute) Cystitis (Acute) Fall (Acute) Aspiration of food (Acute) aspiration pneumonia acute metabolic encephalopathy - Secondary Discharge Diagnosis Chronic Problems (Last Reviewed 09/13/18 @ 11:19 by Sharif Gurrola MD) SOB (shortness of breath) (Chronic) Benign prostate hyperplasia (Chronic) Parkinson disease (Chronic) Chronic back pain (Chronic) Urinary incontinence (Chronic) Depression (Chronic) Hospital Course and Treatment Imaging Results: Diagnostic Data Abdomen/Pelvis CT 09/12/18 17:59 IMPRESSION: 1. Large right pneumothorax partially visualized. 2. No abdominal ascites or pneumoperitoneum. 3. Moderate fecal retention. 4. Similar degenerative and operative changes of the lumbar spine. Lower thoracic and upper lumbar vertebral body compression fractures are similar since 2017. 5. Atherosclerosis. 6. Nonobstructing renal calculi. Electronically Signed: Flavio Jacome MD at 19:23 EDT , Service support , Brain CT 09/14/18 09:04 IMPRESSION: Chronic involutional changes of the brain. Stable examination. Electronically Signed: Corby Figueroa, at 11:19 EDT , Service support , KUB X-Ray 09/19/18 09:03 IMPRESSION: Feeding tube with tip in the distal duodenum. The catheter also forms a loop in a hiatal hernia. Electronically Signed: Farhad Pisano DO at 9:48 EDT Tel [phone], Service support , Chest X-Ray 09/21/18 16:50 IMPRESSION: 1. Miniscule residual right pneumothorax with drainage catheter in place. 2. Right lower lobe atelectasis. Electronically Signed: Abdirashid Guerra, at 17:10 EDT Tel , Service support , general surgery- Dr Gurrola Pulmonology- Dr [facility]- Dr Harvey Operations: None Procedures: - - chest tube placement Summary of Care Provided: The patient is a 77 year old M with an extensive past medical history as listed. He was admitted via the ED on 09/12/18 with a complaint of a fall. According to his patient had initially been ambulatory with a walker but the day before presentation he fell while snow was using his walker. He had also been having frequent urination. Chest x-ray done on admission showed a right-sided pneumothorax and he had a chest tube placed in the ED. General surgery was consulted to follow the chest tube. UA was positive for UTI, and was started on IV ceftriaxone for UTI. Patient remained very lethargic. He was also managed for acute metabolic encephalopathy due to UTI and dehydration. Patient's stay was complicated by aspiration pneumonia, requiring broadening of his antibiotics to IV zosyn. Follow up chest xrays showed persistence of right pneumothorax. His chest tube was changed to a larger size chest tube by general surgery. Pulmonology was also consulted on account of aspiration pneumonia. He had a Dobbhoff NG tube placed for nutrition as patient was aspirating and unable to take adequate oral intake. However NG tube was subsequently removed at the request of his as she was not comfortable with that and patient was also not comfortable. Pneumothorax initially resolved but then subsequently he had an apical right-sided pneumothorax. finally made the decision to put patient on hospice care. Per discussion with general surgery, patient had a small right-sided chest tube placed prior to discharge t hospice for prevention of tension pneumothorax. Patient deteriorated and remained very obtunded and lethargic. He was discharged to inpatient hospice facility on 09/22/2018. Patient seen and examined prior to discharge. He remains very lethargic and weak. was by his bedside. No acute events noted. Review of systems otherwise negative. Labs and vitals reviewed. o/e: Vital Signs Height 5 ft 8 in Weight: 120 lb 5.958 oz Weight in Pounds 120.4 lbs Pulse Ox 95 Temperature 99.0 F Pulse Rate [3] 68 Pulse Rate [2] 70 Pulse Rate [1 (Initial 75 Baseline)] Pulse Rate 62 Respiratory Rate [3] 18 Respiratory Rate [2] 15 Respiratory Rate [1 (Initial 13 Baseline)] Respiratory Rate 18 Blood Pressure [BP] 141/71 Blood Pressure [3] 170/99 Blood Pressure [2] 169/108 Blood Pressure [1 (Initial 139/95 Baseline)] Blood Pressure 183/83 Blood Pressure Position [BP] Semi-Fowlers Blood Pressure Position Semi-Fowlers [] General: very lethargic and frail HEENT: Atraumatic, PERRLA, EOMI, Normocephalic. DObhoff tube removed. Oral: Dry Mucosa Neck: Supple, No JVD, Negative Carotid Bruits Lungs: - - significantly decreased breath sounds in right lung bruner; Right sided chest tube in place Cardiovascular: Regular rate, Regular Rhythm, Normal S1, Normal S2, No murmurs Abdomen: Bowel Sounds Present, Soft, Non Tender, Non-Distended, No Hepato- splenomegaly Extremities: No clubbing, No cyanosis, No edema, Capillary Refill Less than 3 Seconds Skin: No rashes, No breakdown Musculoskeletal: No Tenderness to Palpation of Joints or Extremities Neurological: - - very lethargic; Psych/Mental Status: - -lethargic Plan is for discharge to home hospice. - Physical Exam Vital Signs Temp Pulse Resp BP Pulse Ox 99.0 F 62 18 183/83 H 95 09/22/18 10:00 09/22/18 10:00 09/22/18 10:00 09/22/18 10:00 09/22/18 10:00 Oxygen Flow Rate (L/min) [3] 15 Oxygen Flow Rate (L/min) [2] 15 Oxygen Flow Rate (L/min) [1 ( 15 Initial Baseline)] Oxygen Flow Rate (L/min) 15 Oxygen Delivery Method [3] Non-Rebreather Oxygen Delivery Method [2] Non-Rebreather Oxygen Delivery Method [1 ( Non-Rebreather Initial Baseline)] Oxygen Delivery Method Room Air Weight: 120 lb 5.958 oz Body Mass Index (BMI) 18.3 Finger Stick Blood Glucose 81 Intake and Output for Last 24 Hours 09/20/18 09/21/18 09/22/18 23:59 23:59 23:59 Intake Total 4300 / 4300 2454 / 2454 1506 / 1506 Output Total 100 / 100 5 / 5 Balance 4200 / 4200 2449 / 2449 1506 / 1506 Microbiology Past 72 Hours 09/14/18 09:24 Blood Culture - Final Blood Culture (Wb) - Left Hand No growth in 5 days. 09/14/18 09:20 Blood Culture - Final Blood Culture (Wb) - Anticubital Left No growth in 5 days. Home Medications: Medications to take at Discharge Pantoprazole Sodium [Protonix] 40 mg PO 0600 07/11/13 Rasagiline Mesylate [Azilect] 1 mg PO DAILY 07/11/13 Venlafaxine XR [Effexor Xr] 75 mg PO DAILY 07/11/13 carbidopa 25 mg-levodopa 100 mg tablet 1 tab PO TIDCM tab 05/15/18 ibuprofen 800 mg tablet 800 mg PO TID PRN PRN 05/15/18 Glycopyrrolate [Robinul] 1 mg PO TIDCM 09/12/18 Multivitamin with Minerals [Multiple Vitamin] 1 each PO DAILY 09/12/18 Rivastigmine Tartrate [Rivastigmine] 6 mg PO BIDCM 09/12/18 Ropinirole HCl [Requip] 1 mg PO TIDCM 09/12/18 Primary Care Physician: Tereso Abraham MD [Primary Care Provider] - Disposition: Hospice Medical Facility Minutes spent on discharge:: 50 Patient Condition:: Poor Medical Necessity - Tobacco Use Smoking Status: Never smoker Meaningful Use Info Meaningful Use Diagnoses (Choose all that apply): None applicable Code Visit Inpatient E&M: 09177 Disch Hosp
--- NOTE | 2018-09-22 10:12 | NURSING ---
REPORT CALLED TO PETER @ [facility]
--- NOTE | 2018-09-22 10:44 | CASEMGMT ---
Social Work Note SW faxed discharge summary to [facility]. RN states pt's and son were present at [facility] when pt was transported to [facility]. Zandra Villar MERCHANDISING SPECIALIST, CREDIT FRONT OFFICE DEVELOPER
== END 2018-09-22 10:12 | disposition hospice, inpatient (51) | DRG 199 ==
LOC: ED 18:38 → MS3 20:29
PROVIDERS: Internal Medicine Critical Care Medicine; Surgery; Admitting Provider Hospitalist; Emergency Provider Emergency Medicine; Family Provider Family Medicine; PCP Family Medicine; Referring Provider Hospitalist; Visit Provider Student in an Organized Health Care Education/Training Program
PROC: 0DJ08ZZ Inspection of Upper Intestinal Tract, Via Natural or Artificial Opening Endoscopic (ICD-10-PCS; CPT 43235; principal; 2018-09-17 08:25)
DX: J93.11 Primary spontaneous pneumothorax (principal); G93.41 Metabolic encephalopathy; J69.0 Pneumonitis due to inhalation of food and vomit; E43 Unspecified severe protein-calorie malnutrition; N30.00 Acute cystitis without hematuria; Z68.1 Body mass index [BMI] 19.9 or less, adult; J91.8 Pleural effusion in other conditions classified elsewhere; E87.2 Acidosis; E86.0 Dehydration; G20 Parkinson's disease; W18.30XA Fall on same level, unspecified, initial encounter; Y93.01 Activity, walking, marching and hiking; Y92.008 Other place in unspecified non-institutional (private) residence as the place of occurrence of the external cause; Y99.8 Other external cause status; N40.0 Benign prostatic hyperplasia without lower urinary tract symptoms; F32.9 Major depressive disorder, single episode, unspecified; E78.00 Pure hypercholesterolemia, unspecified; Z79.899 Other long term (current) drug therapy; Z87.891 Personal history of nicotine dependence; G89.29 Other chronic pain; M54.9 Dorsalgia, unspecified; R62.7 Adult failure to thrive; G25.81 Restless legs syndrome; M43.6 Torticollis; M40.209 Unspecified kyphosis, site unspecified; R54 Age-related physical debility; Z66 Do not resuscitate; R00.1 Bradycardia, unspecified
CPT/HCPCS: 32551; 36415; 36600; 70450; 71045; 74018; 74176; 80048; 80053; 81001; 82374; 82803; 85025; 85027; 87040; 87077; 87086; 87088; 87186; 87641; 92526; 92610; 93005; 94640; 94667; 94668; 97110; 97162; 97166; 97530; 97802; 99285; J7030; J7040; J7050; P9612; A4216; J0744; J2405; J3490